=== PATIENT | male | born 1945 | race Caucasian/White ===

== ENCOUNTER → 2020-01-15 13:14 | Outpatient (BNVA) | payer MEDICARE, SELFPAY | PROVIDERS: PCP Internal Medicine; Referring Provider Internal Medicine; Visit Provider Nurse Practitioner Family | DX: Z45.018 Encounter for adjustment and management of other part of cardiac pacemaker (principal) | CPT/HCPCS: 99214 ==

== ENCOUNTER → 2020-07-20 13:48 | Outpatient (BNVA) | payer MEDICARE, SELFPAY | PROVIDERS: PCP Internal Medicine; Visit Provider Nurse Practitioner Family | DX: Z45.018 Encounter for adjustment and management of other part of cardiac pacemaker (principal); I44.2 Atrioventricular block, complete; Z79.899 Other long term (current) drug therapy | CPT/HCPCS: 99212 ==

== ENCOUNTER → 2021-01-18 13:18 | Outpatient (BNVA) | payer MEDICARE, SELFPAY | PROVIDERS: PCP Family Medicine; Referring Provider Family Medicine; Visit Provider Internal Medicine Cardiovascular Disease | DX: Z45.018 Encounter for adjustment and management of other part of cardiac pacemaker (principal); I44.2 Atrioventricular block, complete | CPT/HCPCS: 99212 ==

== ENCOUNTER → 2021-03-14 08:13 | Outpatient (REF) | payer MEDICARE, SELFPAY ==
--- NOTE | 2021-03-14 08:16 | CA_ITS ---
Transthoracic Echocardiogram Amended Patient (Last, First, Middle): Campbell Luna E Gender: Male Date of : 1945 Age: 75 Procedure Date: 03/14/2021 Procedure Type: Transthoracic Echocardiogram Location: OP Height: 167.64 cm Weight: 73.03 kg BSA: 1.82 m2 Heart Rate: bpm BP: 124 / 68 mmHg Phosphorus Processing Supervisor: RICHARD Referring MD: Red Barron MD Symptoms: I44.2 - Atrioventricular block, complete Study Quality: Good ECG Rhythm: Sinus Conclusions: - The left ventricular systolic function is low normal. The visually estimated ejection fraction is between 50-55%. - There is mild tricuspid valve regurgitation. Findings Left Ventricle Normal left ventricular cavity size. There is normal left ventricular wall thickness. The left ventricular systolic function is low normal. The visually estimated ejection fraction is between 50-55%. There is no evidence of regional wall motion abnormalities. E/E prime ratio is between 8 and 15 consistent with indeterminate filling pressures. Evidence suggests grade I (mild) diastolic dysfunction. Right Ventricle Normal right ventricular cavity size and systolic function. Atria Both atria are normal in size. Aortic Valve There is a normal trileaflet aortic valve. There is no aortic valve stenosis. There is no aortic valve regurgitation. Mitral Valve There is mild mitral annular calcification. There is no mitral valve stenosis. Trace to mild mitral regurgitation. Pulmonic Valve The pulmonic valve was not well visualized. Tricuspid Valve There is mild tricuspid valve regurgitation. The pulmonary artery systolic pressure is normal. Great Vessels The aortic annulus and sinuses of valsalva are normal in size. Venous The inferior vena cava is normal in size and collapses greater than 50% with inspiration. Pericardium/Pleural There is no evidence of pericardial effusion. Prior Study Comparison Changes noted compared to prior study dated: 11/27/2019. Slight decrease in LVEF. Measurements M-Mode Liner Measurements Normals - Women/Men LVIDd: 4.69 3.9-5.3/4.2-5.9 cm LVIDd Index: 2.58 1.9-3.2 cm/m2 LVIDs: 3.04 2.0-3.8 cm M-Mode Volumes LV EDV: 102.00 LV ESV: 36.20 2D Linear Measurements IVSd: 0.67 0.6-0.9/0.6-1.0 cm LVIDd: 5.11 3.9-5.3/4.2-5.9 cm LVIDd Index: 2.81 2.4-3.2/2.2-3.1 cm/m2 LVIDs: 3.65 2.0-3.6 cm LVPWd: 1.00 0.7-1.1 cm Ao Root: 3.10 2.1-3.5 cm LA Diam: 3.40 2.7-3.8/3.0-4.0 cm LAIDs Index: 1.87 1.5-2.3 cm/m2 LV Mass: 184.65 67-162/88-224 g LV Mass Index: 101.45 43-95/49-115 g/m2 LVOT Diam: 2.00 3.0+(-)1.3 cm 2D Volumes LA Vol: 16.60 2D Systolic Function EF 4C: 62.60 >55% EF 2C: 54.20 >55% EF BiP: 58.90 >55% M-Mode Systolic Function FS: 35.20 27-47/25-43% Mitral Valve MV Pk E: 0.87 MV PK A: 0.95 MV Decel Time: 284.00 E/A: 0.90 E'Lateral: 7.51 E'Medial: 6.09 E/E' Med: 14.20 E/E' Lat: 11.50 PHT: 83.00 MVA PHT: 2.65 Decel [place]: 3.05 Aortic Valve AoV Pk Regino: 1.15 AoV Pk Grad: 5.00 LVOT LVOT Pk Regino: 0.90 LVOT Mn Regino: 0.55 LVOT VTI: 0.20 LVOT Pk Grad: 3.00 LVOT Mn Grad: 1.00 LVOT Diam: 2.00 LVOT Area: 3.14 Diastolic Function MV Pk E: 0.87 MV Pk A: 0.95 E/A: 0.90 E'Medial: 6.09 E/E' Med: 14.20 E' Laterial: 7.51 E/E' Lat: 11.50 Right Ventricle TAPSE (mm): 2.30 Tricuspid Valve TR Pk Regino: 2.67 TR Pk Grad: 29.00 RA Press: 3.00 RVSP: 32.00 Great Vessels Aorta Ao Root-2D: 3.10 2.0-3.7 cm Updated in Other Vendor System with Status of Final Vince Martinez MD electronically signed on 03/14/2021 12:06:14 PM with status of Final
== END ==
LOC: HO.CARD 08:13
PROVIDERS: PCP Family Medicine; Visit Provider Internal Medicine Cardiovascular Disease
DX: I44.2 Atrioventricular block, complete (principal)
CPT/HCPCS: 93306

== ENCOUNTER → 2021-05-03 13:39 | Outpatient (BNVA) | payer MEDICARE, SELFPAY | PROVIDERS: PCP Family Medicine; Referring Provider Family Medicine; Visit Provider Internal Medicine Cardiovascular Disease | DX: Z45.018 Encounter for adjustment and management of other part of cardiac pacemaker (principal); R42 Dizziness and giddiness | CPT/HCPCS: 99212 ==

== ENCOUNTER → 2021-11-25 09:11 | Outpatient (REF) | payer MEDICARE, SELFPAY ==
--- NOTE | 2021-11-25 09:16 | CA_ITS ---
Transthoracic Echocardiogram Patient (Last, First, Middle): Campbell Luna E Gender: Male Date of : 1945 Age: 76 Procedure Date: 11/25/2021 Procedure Type: Transthoracic Echocardiogram Location: OP Height: 165.1 cm Weight: 72.58 kg BSA: 1.80 m2 Heart Rate: 69 bpm BP: 124 / 60 mmHg Emergency Response Officer: SB Referring MD: Red Barron MD Symptoms: I51.9 - Heart disease, unspecified Study Quality: Adequate ECG Rhythm: Paced Conclusions: - The left ventricular systolic function is low normal. The visually estimated ejection fraction is between 50-55%. Findings Left Ventricle Normal left ventricular cavity size. There is mildly increased left ventricular wall thickness. The left ventricular systolic function is low normal. The visually estimated ejection fraction is between 50-55%. There is no evidence of regional wall motion abnormalities. Diastolic function is normal for age. Reduced peak GLS at -12.8%. Right Ventricle Mildly increased right ventricular cavity size. There is mildly decreased right ventricular systolic function. Aortic Valve There is a normal trileaflet aortic valve. There is no aortic valve stenosis. There is no aortic valve regurgitation. Mitral Valve There is mild mitral annular calcification. There is trace mitral valve regurgitation. There is no mitral valve stenosis. Tricuspid Valve There is mild tricuspid valve regurgitation. Venous The inferior vena cava is normal in size and collapses less than 50% with inspiration. Prior Study Comparison No significant change compared to prior study dated: 03/14/2021. Measurements 2D Linear Measurements IVSd: 1.07 0.6-0.9/0.6-1.0 cm LVIDd: 4.51 3.9-5.3/4.2-5.9 cm LVIDd Index: 2.51 2.4-3.2/2.2-3.1 cm/m2 LVIDs: 2.97 2.0-3.6 cm LVPWd: 1.02 0.7-1.1 cm LV Mass: 203.59 67-162/88-224 g LV Mass Index: 113.11 43-95/49-115 g/m2 LVOT Diam: 2.00 3.0+(-)1.3 cm 2D Systolic Function EF 4C: 55.10 >55% EF 2C: 56.90 >55% EF BiP: 56.40 >55% Mitral Valve MV Pk E: 0.83 MV PK A: 1.03 MV Decel Time: 200.00 E/A: 0.80 E'Lateral: 7.72 E'Medial: 6.74 E/E' Med: 12.30 E/E' Lat: 10.80 PHT: 59.00 MVA PHT: 3.73 Decel [place]: 4.15 LVOT LVOT Pk Regino: 0.99 LVOT Mn Regino: 0.68 LVOT VTI: 0.20 LVOT Pk Grad: 4.00 LVOT Mn Grad: 2.00 LVOT Diam: 2.00 LVOT Area: 3.14 Diastolic Function MV Pk E: 0.83 MV Pk A: 1.03 E/A: 0.80 E'Medial: 6.74 E/E' Med: 12.30 E' Laterial: 7.72 E/E' Lat: 10.80 Right Ventricle TAPSE (mm): 13.90 TVS' Regino: 9.70 Tricuspid Valve TR Pk Regino: 2.54 TR Pk Grad: 26.00 RA Press: 8.00 RVSP: 34.00 Updated in Other Vendor System with Status of Final Vince Martinez MD electronically signed on 11/29/2021 4:43:55 PM with status of Final
== END ==
LOC: HO.CARD 09:11
PROVIDERS: PCP Family Medicine; Visit Provider Internal Medicine Cardiovascular Disease
DX: I51.9 Heart disease, unspecified (principal)
CPT/HCPCS: 93308; 93356

== ENCOUNTER → 2021-12-13 14:05 | Outpatient (BNVA) | payer MEDICARE, SELFPAY | PROVIDERS: PCP Family Medicine; Referring Provider Family Medicine; Visit Provider Internal Medicine Cardiovascular Disease | DX: I47.2 Ventricular tachycardia (principal); Z45.018 Encounter for adjustment and management of other part of cardiac pacemaker | CPT/HCPCS: 93280; 99212 ==

== ENCOUNTER 2021-12-26 08:06 | Outpatient (REF) | payer MEDICARE, SELFPAY ==
--- NOTE | ~2021-12-26 | XR_ITS ---
EXAMINATION: XR RIGHT HIP XR PELVIS CLINICAL INFORMATION: M25.559 - Pain in unspecified hip. COMPARISON: None. TECHNIQUE: AP and frog-leg lateral views of the right hip and an AP view of the pelvis. FINDINGS: Mild osteoarthritis in the right hip is characterized by small marginal osteophytes and mild nonuniform joint space narrowing. Left hip is relatively well-preserved by comparison. SI joints and pubic symphysis also appear well preserved. There is transitional anatomy at the lumbosacral junction. Degenerative spondylosis is evident in the lower lumbar spine. No fractures. Bone mineralization appears normal. No aggressive osseous lesions are identified. Soft tissues are unremarkable. XR/XR hip RT w PEL1V IMPRESSION: Mild osteophyte is in the right hip. Degenerative spondylosis in the lower lumbar spine with transitional anatomy at L5-S1.
== END 2021-12-26 08:07 | disposition home or self-care (01) ==
LOC: HO.HOSX 08:06
PROVIDERS: Visit Provider Physician Assistant
DX: M16.11 Unilateral primary osteoarthritis, right hip (principal)
CPT/HCPCS: 73502; 99202

== ENCOUNTER 2022-01-04 10:48 | Outpatient (REF) | payer MEDICARE, SELFPAY ==
--- NOTE | ~2022-01-04 | FL_ITS ---
EXAMINATION: XR ARTHROGRAM HIP, RIGHT CLINICAL INFORMATION: Right hip pain. Osteoarthritis. COMPARISON: Previous x-ray 12/26/2021. TECHNIQUE?FINDINGS: Procedure and risks and benefits including bleeding and infection were discussed with the patient and informed consent was obtained. The right hip was prepped and draped in the usual sterile fashion. The skin and soft tissues were anesthetized with 1% lidocaine plain. Using fluoroscopic guidance and a 22-gauge needle, access to the right hip joint was obtained. 1-2 mL of Omnipaque 300 contrast was injected fluoroscopically into the joint space confirming adequate placement. Subsequently, a mixture of 8 mL of 1% lidocaine plain and 1 mL 80 mg Depo-Medrol solution was injected into the right hip joint FLUOROSCOPY TIME: 1.2 minutes. DOSE AREA PRODUCT: 6.4 Gy-cm2. IMAGES: 1 saved fluoroscopic image. FL/FL arthrogram hip RT IMPRESSION: Therapeutic right hip joint injection.
== END 2022-01-04 10:49 | disposition home or self-care (01) ==
LOC: HO.XRAY 10:48
PROVIDERS: PCP Family Medicine; Visit Provider Physician Assistant
DX: M16.11 Unilateral primary osteoarthritis, right hip (principal)
CPT/HCPCS: 27093; 73525

== ENCOUNTER → 2022-02-20 13:36 | Outpatient (BNVA) | payer MEDICARE, SELFPAY | PROVIDERS: PCP Family Medicine; Visit Provider Physician Assistant | DX: M16.11 Unilateral primary osteoarthritis, right hip (principal) | CPT/HCPCS: 99212 ==

== ENCOUNTER 2022-03-23 10:00 | Outpatient (RCR) | payer MEDICARE, SELFPAY ==
--- NOTE | 2022-03-01 11:37 | MHC.PT.EP ---
[facility] [place] Office [place] Office [place] Office [address] Sin Castro [address] [phone] F: [phone] F: [phone] F: [phone] F: [phone] Physical Therapy Plan of Care Date of Evaluation: Date of Surgery: n/a Diagnosis: OA of R hip Assessment: Patient is a 76 year old male presenting to PT with complaints of pain in his R hip. Pt reports onset of pain began about 1 year ago due to insidious onset but notes he does have arthritis. He presents today with impairments in pain, ROM, hip strength, knee strength. 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 Pt expresses watermelon inspector goal of prolonging hip replacement until after trip in May, and is motivated to work towards this in PT. Clinical presentation today is most consistent with signs and sx associated with R hip OA per xray and pt will benefit from skilled PT to address the following problems and impairments noted upon evaluation: pain, ROM, hip strength, knee strength.. These problems limit the patient with the following functional activities: ADLs, housework, bending, ambulating, stair negotiation. The prescribed treatment plan of care is medically necessary. Co-morbidities of pacemaker were identified and taken into considerations of plan of care. Pt was educated on HEP, role of PT, prognosis, POC. Frequency and Duration: The patient will be seen 2 x week x 4 weeks Short Term Goals: Pt will demonstrate improved hip MMT by 1/3 grade in 2 weeks for improved lumbopelvic stability. Pt will demonstrate improved knee MMT strength by 1/3 grade in 2 weeks for improved ability to transfer. Long-Term Goals: Pt will demonstrate improved LEFI score by 9 points in 4 weeks for improved functional mobility. Pt will demonstrate improved ability to negotiate stairs without relying on banister to pull himself in 4 weeks for improved access to his home. Pt will demonstrate improved compliance with taking breaks from prolonged sitting to avoid onset of too much pain in 4 weeks. Treatment Plan: Modalities to reduce pain, spasms and effusion. Manual therapy to restore motion and function. Therapeutic exercise to improve strength and flexibility. Neuromuscular re-education for posture and balance. Therapeutic activities to return to functional activities of daily living. Electronically signed by: Petty Verduzco, PT, DPT, ATC Please sign and return to therapist. Thank you for your referral.
--- NOTE | 2022-04-04 13:45 | MHC.PT.DC ---
[facility] [place] Office [place] Office [place] Office [address] Sin Castro [address] [phone] F: [phone] F: [phone] F: [phone] F: [phone] Physical Therapy Discharge Report Diagnosis: OA of R hip Date of Surgery: n/a Date of Evaluation: 03/01/22 Date of Discharge: 04/04/22 Treatments to Date: 7 Cancellations to Date: 2 No Shows to Date: 0 Discharge Status: Patient Elected to Stop Discharge Summary: Pt called stating he would like to be d/c from skilled PT and continue with HEP at home. Electronically signed by: Petty Verduzco, PT, DPT, ATC Please sign and return to therapist. Thank you for your referral.
== END 2022-04-04 13:45 | disposition home or self-care (01) ==
LOC: HO.PTCHIC 10:00
PROVIDERS: PCP Family Medicine; Visit Provider Physician Assistant
DX: M16.11 Unilateral primary osteoarthritis, right hip (principal)
CPT/HCPCS: 97110; 97162

== ENCOUNTER 2022-04-05 13:06 | Outpatient (REF) | payer MEDICARE, SELFPAY ==
--- NOTE | ~2022-04-05 | FL_ITS ---
EXAMINATION: XR ARTHROGRAM HIP, RIGHT CLINICAL INFORMATION: Right hip osteoarthritis. Pain. COMPARISON: None. TECHNIQUE: Following explaining fluoroscopy-guided right hip steroid injection procedure, benefits and risks, a written consent was obtained. Patient was placed supine on fluoroscopy table and optimal site was selected on the skin and marked. The marked site was cleaned and draped in the usual sterile manner. 1% lidocaine was injected at the puncture site. A 20-gauge spinal needle was then inserted under fluoroscopy to the junction of right femoral neck and head. 2 mL of nonionic contrast was injected and single image obtained. After confirmation of contrast in the joint space a combination of 80 mg of Depo-Medrol, 4 mL of 1% lidocaine and 4 mL of 0.25% Marcaine was injected as a 9 mL volume and needle withdrawn. Complete hemostasis achieved at the puncture site. Patient tolerated procedure extremely well. FINDINGS: On fluoroscopy images obtained there is contrast opacifying the right hip joint. The right hip joint spaces are decreased with mild periarticular spurring. No bony erosive changes or loose body seen. Fluoroscopy-guided right hip steroid injection was performed without immediate complications. FLUOROSCOPY TIME: 0.4 minutes. DOSE AREA PRODUCT: 5.880 Gy-m2 (microgray-meter squared). IMAGES: 2. FL/FL arthrogram hip RT IMPRESSION: Successful fluoroscopy-guided right hip steroid injection performed without immediate complications.
== END 2022-04-05 13:07 | disposition home or self-care (01) ==
LOC: HO.XRAY 13:06
PROVIDERS: Visit Provider Physician Assistant
DX: M16.0 Bilateral primary osteoarthritis of hip (principal)
CPT/HCPCS: 27093; 73525

== ENCOUNTER → 2022-08-03 14:30 | Outpatient (BNVA) | payer MEDICARE, SELFPAY | PROVIDERS: PCP Family Medicine; Visit Provider Orthopaedic Surgery | DX: M16.0 Bilateral primary osteoarthritis of hip (principal); I44.2 Atrioventricular block, complete; Z95.0 Presence of cardiac pacemaker | CPT/HCPCS: 99212 ==

== ENCOUNTER → 2022-09-26 09:40 | Outpatient (BNVA) | payer MEDICARE, SELFPAY | PROVIDERS: PCP Family Medicine; Visit Provider Orthopaedic Surgery ==

== ENCOUNTER → 2022-10-05 09:48 | Outpatient (REF) | payer MEDICARE, SELFPAY ==
--- NOTE | 2022-10-05 09:51 | CA_ITS ---
Acquisition Time: 2022-10-05 09:56:14 Total Exercise Time: 00:02:00 Test Indications: NSVT PREOP Medications: SEE H Protocol: LEXISCAN Max HR: 100 BPM 69% of Pred: 144 BPM Max BP: 134/068 mmHG Max Work Load: 1.0 METS Pharmacological stress test with Lexiscan injection while sitting and not kicking his legs, without anginal symptoms, without arrhythmias, with normotensive response to injection, with non-diagnositic EKGs. Nuclear images pending. Test reviewed with Dr. Murray. Referred By: Red Barron Overread By: KO CARRANZA
== END ==
LOC: HO.CARD 09:48
PROVIDERS: PCP Family Medicine; Visit Provider Internal Medicine Cardiovascular Disease
DX: Z01.810 Encounter for preprocedural cardiovascular examination (principal); I44.2 Atrioventricular block, complete; Z95.0 Presence of cardiac pacemaker
CPT/HCPCS: 78452; 93017; A9500; J0280; J2785

== ENCOUNTER 2022-10-19 13:43 | Outpatient (AMB) | payer MEDICARE, SELFPAY ==
--- NOTE | 2022-10-19 13:44 | A.OFFVIS_ITS ---
Intake Vital Signs 10/19/22 13:47 Height 5 ft 6 in Weight 158 lb BMI 25.5 Intake Visit Reasons: Preop RT NINA 10/24/22 NE Intake Note: Campbell is a 77 year old female who presents today for a preoperative right NINA, 10/24/22 NE. Pain management agreement was reviewed and signed. Allergies turmeric Allergy (Intermediate, Verified 10/19/22 13:52) hives Medication List - Last Reconciled 10/22/22 by Robert Smith PA-C acetaminophen (Tylenol) 650 mg PO QID PRN cetirizine 5 mg PO DAILY PRN cholecalciferol (vitamin D3) 25 mcg PO DAILY coenzyme Q10 (Ultra CoQ10) 75 mg PO DAILY flaxseed oil 1,000 mg PO DAILY fluoxetine 10 mg PO DAILY gabapentin 200 mg PO BID meloxicam 7.5 mg PO DAILY multivitamin 1 tab PO DAILY omega-3 fatty acids 1,000 mg PO DAILY saw palmetto 160 mg PO BID zinc sulfate 50 mg PO Q2D HPI HPI Comments History of Present Illness Details Mr Luna presents to the office today for preop visit. He is scheduled for right total hip arthroplasty with Dr. Sanders. He continues to have ongoing pain and difficulty with ambulation in the right hip, which is affecting his quality of life; therefore, he has elected to move forward with surgery. Most recent appt with NE 08/03/22: Campbell is a 77 y ear old man with r ight hip OA. He h as pain with daily and weight-bearin g activities and f eels limited in hi s lifestyle. He sa ys his pain is kenny margaux in his groi n and prevents him from being as act alicia as he wants to be. He has a Hx of hip injections, with his most rec ent being an Flour oscan guided hip i njection on , with good reli ef. He had a pace maker implanted in 11/2019. ? PFSH Medical History Complete heart block Osteoarthritis Pacemaker Surgical History H/O colonoscopy History of bunionectomy History of permanent cardiac pacemaker placement (~11/2019) Hx of hernia repair Family History Father Emphysema lung Mother No problems noted. 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 Review of Systems Const All systems reviewed & are unremarkable except as noted in HPI and below Physical Exam Vital Signs: BMI result Body Mass Index 25.5 Const General: cooperative and no acute distress Orientation/consciousness: patient oriented x3 HEENT Head: Yes normal to inspection, Yes normocephalic and Yes atraumatic Eyes General: appearance normal, both eyes and all related structures Neck Neck: Yes normal visual inspection and Yes no lymphadenopathy Resp Effort & Inspection: normal respiratory effort and able to speak in complete sentences Cardio Rate: regular rate Peripheral pulses: Peripheral pulses 2+ throughout GI Inspection: Yes normal to inspection Palpation (GI): Soft to palpation Skin General skin exam: no rashes or lesions noted Neuro General: patient oriented x3 Extrem Other: Right Hip: Skin normal to inspection, no open wounds or abraisons. + [place]field + Impingement Psych Appearance: grossly normal Mental Status: mental status grossly normal Affect: normal affect Attitude: cooperative Results Reviewed Results Reviewed: XR right hip/pelvis 12/26/21 Mild osteoarthritis in the right hip is characterized by small marginal osteophytes and mild nonuniform joint space narrowing Stress test performed on 10/06/22 NM vianey perf SPECT rest & str Impression: ? 1.? Myocardial perfusion imaging study shows probably normal myocardial perfusion. No definitive evidence of any ischemia or infarction. 2.? Gated LVEF is 55% during stress and 61% during rest. 3. Transient ischemic dilatation not present. On 10/11/22 @ 10:51 Red Barron Wrote To Brandie Topete Stress test is normal On 10/11/22 @ 13:25 Red Barron Wrote To [place] Crespo Patient optimized for hip surgery with low to intermediate risk Assessment & Plan Assessment & Plan (1) Osteoarthritis of right hip: Code(s): M16.11 - Unilateral primary osteoarthritis, right hip Plan: I discussed in detail the procedure and what to expect pre and post operatively. We discussed the risks, benefits and alternatives to the surgery as well as the rehabilitation course. The risks; which include, but are not limited to infection, bleeding, nerve injury, ongoing pain, swelling, and stiffness, perioperative risk of injury to bones and soft tissues, and blood clots. I?ve answered all questions and with their understanding they have consented to move forward with Right total hip arthroplasty with Dr. Marilyn little- will wait in surgery waiting room Patient Instructions: Scribed for Robert Smith PA-C, by Maksim Means medical billing and coding specialist, on 10/19/2022 at 1:45 PM EST. Roman, Robert Smith PA-C, have personally reviewed and agree with the information entered by the scribe. Coding Level of Care Code Est Pt Level 3 (16709) Diagnoses Osteoarthritis of right hip M16.11
[2022-10-19 13:47] VITALS: BMI 25.5
== END 2022-10-19 14:54 | disposition home or self-care (01) ==
PROVIDERS: Visit Provider Physician Assistant
DX: M16.11 Unilateral primary osteoarthritis, right hip (principal)
CPT/HCPCS: 99024

== ENCOUNTER → 2022-10-19 13:43 | Outpatient (BNVA) | payer MEDICARE, SELFPAY | PROVIDERS: Visit Provider Physician Assistant ==

== ENCOUNTER 2022-10-24 10:00 | Inpatient (IN) | payer MEDICARE, SELFPAY ==
[2022-10-11 12:04] VITALS: BP 123/64; PULSE 74; RESP 20; O2SAT 97; BMI 29.7
--- NOTE | 2022-10-23 09:38 | HO.ANESPROP2 ---
Documented by User: Archana Kelley NP 10/23/22 09:48 HPI - Anesthesia Eval Consult details Narrative: 77yo M for Right Hip Total Replacement PAT eval by Dr Roberts - No EKG needed (stress and echo avail), Pt to have SPINAL anesthesia, Needs pacer interrogated post-op Pacer in situ (CHB, NSVT) Medically optimized Cardiac cleared [facility] Active Problems Active Problems: All Active Problems (Updated 10/11/22 @ 11:58 by Rachael Hall RN) Osteoarthritis of right hip (Acute) Arthritis of left hip (Acute) Pacemaker (Acute) Complete heart block (Acute) Past Medical History Medical History Complete heart block Osteoarthritis Pacemaker Family History Family History Father Emphysema lung Mother No problems noted. Surgical History Surgical History H/O colonoscopy History of bunionectomy History of permanent cardiac pacemaker placement (~11/2019) Hx of hernia repair Social History Social History Are you a primary career based intervention coordinator to a significant other at home: No Do you presently have visiting nurse or other home services: No Patient Tobacco Use Status: Former Tobacco user Quit Date: 1988 Tobacco use type: Cigarette Years Smoked: 19 Use of substances other than those prescribed or required for medical reasons: No Have you been hit, kicked, punched, or otherwise hurt by someone within the past year? 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 Meds Allergies Allergy/AdvReac Type Severity Reaction Status Date / Time turmeric Allergy Intermediate hives Verified 10/19/22 13:52 Home Medications Medication Instructions Recorded Confirmed Last Taken Type coenzyme Q10 75 mg capsule (Ultra 75 mg PO DAILY 01/15/20 10/09/22 Unknown History CoQ10) flaxseed oil 1,000 mg capsule 1,000 mg PO DAILY 01/15/20 10/09/22 Unknown History meloxicam 7.5 mg tablet 7.5 mg PO DAILY 01/15/20 10/09/22 Unknown History multivitamin 1 tab PO DAILY 01/15/20 10/09/22 Unknown History omega-3 fatty acids 1,000 mg 1,000 mg PO DAILY 01/15/20 10/09/22 Unknown History capsule saw palmetto 160 mg capsule 160 mg PO BID 01/15/20 10/09/22 Unknown History cetirizine 5 mg tablet 5 mg PO DAILY PRN Allergy Symptoms 07/20/20 10/09/22 Unknown History cholecalciferol (vitamin D3) 25 25 mcg PO DAILY 01/18/21 10/09/22 Unknown History mcg (1,000 unit) capsule acetaminophen 325 mg capsule 650 mg PO QID PRN Pain 05/03/21 10/22/22 Unknown History (Tylenol) zinc sulfate 50 mg zinc (220 mg) 50 mg PO Q2D 12/13/21 10/09/22 Unknown History tablet gabapentin 100 mg capsule 200 mg PO BID 09/26/22 10/22/22 Unknown History fluoxetine 10 mg capsule 10 mg PO DAILY 10/11/22 10/22/22 Unknown History Exam Exam Date and Time: October 23, 2022 0938 Height,Weight and Vital Signs: Height 5 ft 4 in Weight 78.471 kg Last Vital Signs Pulse 74 10/11/22 12:04 Resp 20 10/11/22 12:04 BP 123/64 10/11/22 12:04 Pulse Ox 97 10/11/22 12:04 O2 Del Method Room Air 10/11/22 12:04 Pertinent Lab Results Pertinent Lab Results: Laboratory Tests 10/11/22 10/11/22 12:30 12:56 Nasal Screen MRSA (PCR) NEGATIVE Nasal S. aureus Screen NEGATIVE Nasal MRSA/S.aureus Interp SEE NOTE Blood Type A Positive Antibody Screen NEGATIVE CBC and BMP from outside facility WNL 06/2022 PT/INR from outside facility WNL 09/2022 Narrative Narrative: NM vianey perf SPECT rest & str 09/2022 Impression: ? 1.? Myocardial perfusion imaging study shows probably normal myocardial perfusion. No definitive evidence of any ischemia or infarction. 2.? Gated LVEF is 55% during stress and 61% during rest. 3. Transient ischemic dilatation not present. ? EKG component of the test reported separately. ECHO 2021 Conclusions: - The left ventricular systolic function is low normal.? The ? ? visually estimated ejection fraction is between 50-55%.? Assessment and Plan Assessment Anesthesia Assessment: Chart Reviewed Documented by User: Wilbur Beck MD 10/24/22 13:34 [facility] Past Medical History Medical History Complete heart block Osteoarthritis Pacemaker Family History Family History Father Emphysema lung Mother No problems noted. Family history of problems with anesthesia: No Surgical History Surgical History H/O colonoscopy History of bunionectomy History of permanent cardiac pacemaker placement (~11/2019) Hx of hernia repair History of Problems with Anesthesia: No Social History Social History Are you a primary career based intervention coordinator to a significant other at home: No Do you presently have visiting nurse or other home services: No Patient Tobacco Use Status: Former Tobacco user Quit Date: 1988 Tobacco use type: Cigarette Years Smoked: 19 Use of substances other than those prescribed or required for medical reasons: No Have you been hit, kicked, punched, or otherwise hurt by someone within the past year? 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 Meds Allergies Allergy/AdvReac Type Severity Reaction Status Date / Time turmeric Allergy Intermediate hives Verified 10/19/22 13:52 Home Medications Medication Instructions Recorded Confirmed Last Taken Type coenzyme Q10 75 mg capsule (Ultra 75 mg PO DAILY 01/15/20 10/09/22 Unknown History CoQ10) flaxseed oil 1,000 mg capsule 1,000 mg PO DAILY 01/15/20 10/09/22 Unknown History meloxicam 7.5 mg tablet 7.5 mg PO DAILY 01/15/20 10/09/22 Unknown History multivitamin 1 tab PO DAILY 01/15/20 10/09/22 Unknown History omega-3 fatty acids 1,000 mg 1,000 mg PO DAILY 01/15/20 10/09/22 Unknown History capsule saw palmetto 160 mg capsule 160 mg PO BID 01/15/20 10/09/22 Unknown History cetirizine 5 mg tablet 5 mg PO DAILY PRN Allergy Symptoms 07/20/20 10/09/22 Unknown History cholecalciferol (vitamin D3) 25 25 mcg PO DAILY 01/18/21 10/09/22 Unknown History mcg (1,000 unit) capsule acetaminophen 325 mg capsule 650 mg PO QID PRN Pain 05/03/21 10/22/22 Unknown History (Tylenol) zinc sulfate 50 mg zinc (220 mg) 50 mg PO Q2D 12/13/21 10/09/22 Unknown History tablet gabapentin 100 mg capsule 200 mg PO BID 09/26/22 10/22/22 Unknown History fluoxetine 10 mg capsule 10 mg PO DAILY 10/11/22 10/22/22 Unknown History Exam Airway Mallampati Class: II TM Dist: >3cm Neck ROM: Limited Heart: rrr Lungs: cta Assessment and Plan Assessment Anesthesia Assessment: Anesthesia Plan Discussed Final Anesthetic Review Family History of Problems with Anesthesia: No History of Problems with Anesthesia: No NPO: Yes ASA Class: II Final Preanesthetic Review: No Changes in Pt Med Stat, Meds/Allgs Chart Reviewed, Consent Obtained/Reviewed and Anes Risks/Benef Reviewed Patient Risk: Intermediate Procedure Risk: Intermediate Anesthetic Plan Anesthetic Plan: Spinal and Agree w/ Assess. and Plan Disposition: Standard PACU
[2022-10-24] VITALS (11 sets, daily range): BP systolic 85–145; BP diastolic 40–78; PULSE 69–90; RESP 13–19; TEMP 36.1–36.8; O2SAT 92–100
--- NOTE | ~2022-10-24 | XR_ITS ---
EXAMINATION: XR PELVIS CLINICAL INFORMATION: Right total hip arthroplasty. COMPARISON: 04/27/2021 TECHNIQUE: AP portable low set view of the pelvis. FINDINGS: There is a total right hip arthroplasty. The femoral head component articulates appropriately with the acetabular component. No periprosthetic lucency or fracture. Postoperative soft tissue gas. Overlying skin sherri. Mild degenerative changes at the left hip. XR/XR pelvis 1-2V IMPRESSION: Total right hip arthroplasty in typical positioning and alignment.
--- OUTSIDE RECORDS SUMMARY | 2022-10-24 10:12 | XMS_ITS | Continuity of Care Document ---
Author Name Unknown Organization [facility] Ric Nabeel lt Address [address] [place] [address]- Care Team Providers Care Marine Operations Coordinator Name Role Phone Not on Staff, PCP Primary Care Physician Unavail able [place] [facility] [place] 03/[place]/20 [facility] Adult [address] [place] [address]- Allergies, Adverse Reactions, Alerts Substance Reaction Severity Status NKA Active Medications Fish Oil 1000 mg oral capsule 1 capsule = 1,000 mg, By Mouth, Daily, 0 Refills, Maintenance, 03/18/20 7:03:00 EST, Partial fill upon patient request if the prescription is for a schedule II opioid drug. Start Date: 03/18/20 Status: Ordered Flax Seed Oil 0 Refills, Maintenance, 03/18/20 7:04:00 EST, Partial fill upon patient request if the prescriptionis for a schedule II opioid drug. Start Date: 03/18/20 Status: Ordered meloxicam 15 mg oral tablet 1 tablet = 15 mg, By Mouth, Daily, # 30 tablet, 0 Refills, Maintenance, 03/18/20 7:02:00 EST, Tablet, Partial fill upon patient request if the prescription is for a schedule II opioid drug. Start Date: 03/18/20 Status: Ordered Multivitamin Daily, 0 Refills, Maintenance, 03/18/20 7:03:00 EST, Partial fill upon patient request if the prescription is for a schedule II opioid drug. Start Date: 03/18/20 Status: Ordered ProAir HFA 90 mcg/inh inhalation aerosol 1 puffs, Inhalation, 4 times a day, PRN as needed for wheezing, # 6.7 Gm, 0 Refills, Maintenance, 03/18/20 7:02:00 EST, Aerosol, Partial fill upon patient request if the prescription is for a schedule II opioid drug. Start Date: 03/18/20 Status: Ordered Saw [place] 0 Refills, Maintenance, 03/18/20 7:04:00 EST, Partial fill upon patient request if the prescriptionis for a schedule II opioid drug. Start Date: 03/18/20 Status: Ordered TheraTears Eyes, Both, 4 times a day, 0 Refills, Maintenance, 03/18/20 7:09:00 EST, Partial fill upon patient request if the prescription is for a schedule II opioid drug. Start Date: 03/18/20 Status: Ordered Tylenol Arthritis Caplet = 1,300 mg, By Mouth, Every 8 hours, 0 Refills, Maintenance, 03/18/20 7:15:00 EST, Partial fill upon patient request if the prescription is for a schedule II opioid drug. Start Date: 03/18/20 Status: Ordered Vitamin D3 By Mouth, Daily, 0 Refills, Maintenance, 03/18/20 7:14:00 EST, Partial fill upon patient request ifthe prescription is for a schedule II opioid drug. Start Date: 03/18/20 Status: Ordered Zinc = 140 mg, By Mouth, Daily, 0 Refills, Maintenance, 03/18/20 7:14:00 EST, Partial fill upon patient request if the prescription is for a schedule II opioid drug. Start Date: 03/18/20 Status: Ordered Problem List Condition Effective Dates Status Health Status Inform ant Complete heart block(Confirmed) Active OA (osteoarthritis)(Confirmed) Active Social History Social History Type Response Smoking Status Former smoker, quit more than 30 days ago; Other: quit in 1988; entered on: 03/18/20 Sex
--- OUTSIDE RECORDS SUMMARY | 2022-10-24 10:13 | XMS_ITS | Continuity of Care Document ---
Author Name Unknown Organization [facility] [place] Nabeel lt Address [address] [place] [address]- Care Team Providers Care Manager Forms Name Role Phone Aditya Cruz MD Primary Care Physician Encounter [facility] [place] Date(s): 08/11/21 - 08/18/21 [facility] [place] Adult [address] [place] [address]- Attending Physician: Aditya Cruz MD Allergies, Adverse Reactions, Alerts No Known Allergies Immunizations Given and Recorded Vaccine Date Status Refusal Reason SARS-CoV-2 mRNA ([id number]) vax 08/11/21 Given SARS-CoV-2 (COVID-19) mRNA BNT-162b2 vac 01/18/21 Recorded SARS-CoV-2 (COVID-19) mRNA BNT-162b2 vac 07/10/20 Recorded SARS-CoV-2 (COVID-19) mRNA BNT-162b2 vac 06/19/20 Recorded influenza virus vaccine, inactivated 01/13/21 Jarvis rded influenza virus vaccine, inactivated 12/14/20 Jarvis rded influenza virus vaccine, inactivated 01/01/20 Jarvis rded influenza virus vaccine, inactivated 01/29/19 Jarvis rded influenza virus vaccine, inactivated 12/21/17 Jarvis rded influenza virus vaccine, inactivated 01/10/17 Jarvis rded influenza virus vaccine, inactivated 01/14/16 Jarvis rded influenza virus vaccine, inactivated 01/07/11 Jarvis rded influenza virus vaccine, inactivated 12/13/09 Jarvis rded Medications Charcoal Capsule 0 Refills, Maintenance, 08/09/20 13:30:00 EDT, Partial fill upon patient request if the prescription is for a schedule II opioid drug. Start Date: 08/09/20 Status: [facility] [employer] [facility] oral capsule By Mouth, Daily, 0 Refills, Maintenance, 08/09/20 13:30:00 EDT, Partial fill upon patient request if the prescription is for a schedule II opioid drug. Start Date: 08/09/20 Status: Ordered cyclobenzaprine 10 mg oral tablet 10 mg, 1, tablet, By Mouth, 3 times a day, PRN, # 30 tablet, Refills 0, Tot. Refills 0, Acute 08/22/21 11:50:00 EDT, for spasm, 08/11/21 11:48:00 EDT, Route to Pharmacy Electronically, [facility]/pharmacy #[id number], Partial fill upon patient request if the presc... Start Date: 08/11/21 Stop Date: 08/22/21 Status: Ordered Fish Oil 1000 mg oral capsule 1 [...] opioid drug. Start Date: 03/18/20 Status: Ordered FLUoxetine 10 mg oral capsule 10 mg, 1, capsule, By Mouth, Daily, # 90 capsule, Refills 3, Tot. Refills 3, Maintenance, 08/11/21 11:44:00 EDT, Route to Pharmacy Electronically, [facility]/pharmacy #[id number], Partial fill upon patient request if the prescription is for a schedule II opioid dr... Start Date: 08/11/21 Status: Ordered gabapentin 300 mg oral capsule See Instructions, 1 capsule in the am and 1 capsule in pm, Refills 0, Maintenance, 08/11/21 11:04:00 EDT, Instructions Replace Required Details, Partial fill upon patient request if the prescription is for a schedule II opioid drug. Start Date: 08/11/21 Status: Ordered meloxicam 15 mg oral tablet [...] drug. Start Date: 03/18/20 Status: Ordered Saw [place] 0 Refills, Maintenance, 03/18/20 7:04:00 EST, Partial fill upon patient request if the prescriptionis for a schedule II opioid drug. Start Date: 03/18/20 Status: Ordered TheraTears Eyes, Both, 4 times a day, 0 Refills, Maintenance, 03/18/20 7:09:00 EST, Partial fill upon patient request if the prescription is for a schedule II opioid drug. Start Date: 03/18/20 Status: Ordered Transderm-Scop 1 mg/72 hr transdermal film, extended release 1 film, Topically, Every 72 hours, # 10 each, 0 Refills, Acute 08/25/21 12:45:00 EDT, 08/11/21 12:38:00 EDT, [facility]/pharmacy #[id number], Partial fill upon patient request if the prescription is for a schedule II opioid drug., 1 film Topically Every 72 hours,... Start Date: 08/11/21 Stop Date: 08/25/21 Status: Ordered Tylenol Arthritis Caplet = 1,300 [...] Complete heart block(Confirmed) Active OA (osteoarthritis)(Confirmed) Active Vital Signs Most recent to oldest [Reference Range]: 1 2 Height 163.0 cm (08/11/21 11:08 AM) 163.0 cm (08/11/21 10:57 AM) Weight 73.9 kg (08/11/21 10:57 AM) Oxygen Saturation [94-100 %] 99 % (08/11/21 10:57 AM) Pulse Rate [55-90 bpm] 78 bpm (08/11/21 10:57 AM) Body Mass Index [18.5-24.99] 27.81 *H* (08/11/21 10:57 AM) Blood Pressure [90-138/55-84 mm Hg] 126/ 69mm Hg (08/11/21 11:08 AM) 137/75mm Hg (08/11/21 10:57 AM) Temperature [96.8-100.4 DegF] 98.4 DegF (08/11/21 10:57 AM) Mode of Delivery (Oxygen) Room air (08/11/21 10:57 AM) Blood pressure sites Arm, left (08/11/21 11:08 AM) Arm, left (08/11/21 10:57 AM) Temperature Route Oral (08/11/21 10:57 AM) Weight Obtained Via Standing scale (08/11/21 10:57 AM) Social History Social History Type Response Smoking Status Former smoker, quit more than 30 days ago; Other: quit in 1988; entered on: 03/18/20 Sex
--- OUTSIDE RECORDS SUMMARY | 2022-10-24 10:13 | XMS_ITS | Continuity of Care Document ---
Author Name Unknown Organization [facility] Address [address] [place] [address]- Care Team Providers Care Parts Representative Name Role Phone Aditya Cruz MD Primary Care Physician [phone] [place] [facility] [place] - 09/06/[address] [id number] Discharge Disposition: A-D/C Home Attending Physician: Aditya Cruz MD Admitting Physician: Aditya Cruz MD Referring Physician: Sachin AYERS, Libzet Cunningham Allergies, Adverse Reactions, Alerts No Known Allergies Immunizations Given and Recorded Vaccine Date Status Refusal Reason SARS-CoV-2 mRNA ([id number]) vax 08/11/21 Given SARS-CoV-2 (COVID-19) mRNA BNT-162b2 [...] opioid drug. Start Date: 08/09/20 Status: Ordered [employer] oral capsule By Mouth, Daily, 0 Refills, Maintenance, 08/09/20 13:30:00 EDT, Partial fill upon patient request if the prescription is for a schedule II opioid drug. Start Date: 08/09/20 Status: Ordered Fish Oil 1000 mg oral [...] 08/11/21 11:44:00 EDT, Route to Pharmacy Electronically, [facility]/pharmacy #[id number], Partial fill upon patient request if the prescription is for a schedule II opioid drYoshi. Start Date: 08/11/21 Status: Ordered gabapentin 300 [...] drug. Start Date: 03/18/20 Status: Ordered Saw [place] 0 Refills, Maintenance, 03/18/20 7:04:00 EST, Partial [...]
--- OUTSIDE RECORDS SUMMARY | 2022-10-24 10:13 | XMS_ITS | Continuity of Care Document ---
Author Name Unknown Organization [facility] Nabeel lt Address [address] [place] [address]- Care Team Providers Care Paint Roller Winder Name Role Phone Nancy KING, Aditya Tristna Primary Care Physician En[place] [facility] [place] Date(s): 08/18/22 - 08/25/22 [facility] Adult [address] [place] [address]- Attending Physician: Aditya Cruz MD Allergies, Adverse Reactions, Alerts Substance Reaction Severity Status Thimerosal Allergy 1 Active 1conjunctivitis on both eyes Immunizations Given and Recorded Vaccine Date Status Refusal Reason [id number] 12y+ bivalent booster vax 08/15/22 Recorded [id number] 12y+ bivalent booster vax 01/23/22 Recorded influenza virus vaccine, inactivated 01/09/22 Jarvis rded influenza virus vaccine, inactivated 01/13/21 Jarvis rded influenza virus vaccine, inactivated 12/14/20 Jarvis rded influenza virus vaccine, inactivated 01/01/20 Jarvis rded influenza virus vaccine, inactivated 01/29/19 Jarvis rded influenza virus vaccine, inactivated 12/21/17 Jarvis rded influenza virus vaccine, inactivated 01/10/17 Jarvis rded influenza virus vaccine, inactivated 01/14/16 Jarvis rded influenza virus vaccine, inactivated 01/07/11 Jarvis rded influenza virus vaccine, inactivated 12/13/09 Jarvis rded SARS-CoV-2 mRNA ([id number]) vax 08/11/21 Given SARS-CoV-2 (COVID-19) mRNA BNT-162b2 vac 01/18/21 Recorded SARS-CoV-2 (COVID-19) mRNA BNT-162b2 vac 07/10/20 Recorded SARS-CoV-2 (COVID-19) mRNA BNT-162b2 vac 06/19/20 Recorded Medications atorvastatin 10 mg oral tablet 1 tablet = 10 mg, By Mouth, Daily at bedtime, # 90 tablet, 3 Refills, Maintenance, 08/18/22 9:44:00EDT, [facility]/pharmacy #[id number], Partial fill upon patient request if the prescription is for a schedule IIopioid drug., 162.6, cm, 08/18/22 9:06:00 EDT, Height Start Date: 08/18/22 Status: Ordered Charcoal Capsule 0 Refills, Maintenance, 08/09/20 13:30:00 [...] opioid drug. Start Date: 03/18/20 Status: Ordered gabapentin 300 mg oral capsule [...] drug. Start Date: 03/18/20 Status: Ordered Saw [place] 0 Refills, Maintenance, 03/18/20 7:04:00 EST, Partial [...] Date: 03/18/20 Status: Ordered Problem List Condition Confirmation Course Effective Dates Status Health St atus Informant Complete heart block Confirmed Active OA (osteoarthritis) Confirmed Active Vital Signs Most recent to oldest [Reference Range]: 1 Height 162.6 cm (08/18/22 9:06 AM) Weight 77.9 kg (08/18/22 9:06 AM) Oxygen Saturation [94-100 %] 98 % (08/18/22 9:06 AM) Pulse Rate [55-90 bpm] 70 bpm (08/18/22 9:06 AM) Body Mass Index [18.5-24.99 kg/m2] 29.46 kg/m2 *H* (08/18/22 9:06 AM) Blood Pressure [90-138/55-84 mm Hg] 117/ 67mm Hg (08/18/22 9:06 AM) Mode of Delivery (Oxygen) Room air (08/18/22 9:06 AM) Blood pressure sites Arm, right (08/18/22 9:06 AM) Weight Obtained Via Standing scale (08/18/22 9:06 AM) Social History Social History Type Response Smoking Status Former smoker, quit more than 30 days ago; Other: quit in 1988; entered on: 03/18/20 Sex Patient Care team information Care Team Personnel Name: Nancy KING, Aditya Tristan Position: [facility] Primary Care Physician Member Role: PCP Address: Address: [address] [place] [id number]- Care Team Related Persons Name: TRINI CASTRO Address: home [address] [place] [address] [place] [address]
--- OUTSIDE RECORDS SUMMARY | 2022-10-24 10:13 | XMS_ITS | Continuity of Care Document ---
Author Name Unknown Organization [facility] Nabeel lt Address [address] [place] [address]- Care Team Providers Care Branch Office Administrator Name Role Phone Aditya Cruz MD Primary Care Physician [phone] [place] [facility] [facility] [place] 10[place]19/21 [facility] Adult [address] [place] [address]- Attending Physician: Aditya Cruz MD Allergies, Adverse Reactions, Alerts No Known Allergies Immunizations Given and Recorded Vaccine Date Status Refusal Reason SARS-CoV-2 mRNA ([id number]) vax 08/11/21 Given SARS-CoV-2 (COVID-19) mRNA BNT-162b2 [...] opioid drug. Start Date: 08/09/20 Status: Ordered [facility] oral capsule By Mouth, Daily, [...] 08/11/21 11:44:00 EDT, Route to Pharmacy Electronically, [facility]/pharmacy #[id number], Partial fill upon patient request if the [...] drug. Start Date: 03/18/20 Status: Ordered Saw [place] 0 Refills, Maintenance, 03/18/20 7:04:00 EST, Partial [...]
--- OUTSIDE RECORDS SUMMARY | 2022-10-24 10:13 | XMS_ITS | Continuity of Care Document ---
Author Name Unknown Organization [facility] Nabeel lt Address [address] [place] [address]- Care Team Providers Care Health Center Assistant Name Role Phone Nancy KING, Aditya Tristan Primary Care Physician [phone] Encounter [facility] Date(s): 07/19/21 - 08/18/21 [facility] Adult [address] [place] [address]- Allergies, Adverse Reactions, Alerts No Known Allergies Immunizations Given and Recorded Vaccine Date Status Refusal Reason SARS-CoV-2 mRNA ([id number]) vax 08/11/21 Given SARS-CoV-2 (COVID-19) mRNA BNT-162b2 [...] opioid drug. Start Date: 08/09/20 Status: [facility] oral capsule By Mouth, Daily, [...] 08/11/21 11:48:00 EDT, Route to Pharmacy Electronically, [facility]/pharmacy #[id number], Partial fill upon patient [...] 08/11/21 11:44:00 EDT, Route to Pharmacy Electronically, [facility]/pharmacy #[id number], Partial fill upon patient [...] drug. Start Date: 03/18/20 Status: Ordered Saw [place] 0 Refills, Maintenance, 03/18/20 7:04:00 EST, Partial [...] Acute 08/25/21 12:45:00 EDT, 08/11/21 12:38:00 EDT, [facility]/pharmacy #[id number], Partial fill upon patient [...]
--- OUTSIDE RECORDS SUMMARY | 2022-10-24 10:13 | XMS_ITS | Continuity of Care Document ---
Author Name Unknown Organization [facility] Address [address] [place] [address]- Care Team Providers Care Esthetician Permanent Makeup Artist Name Role Phone Nancy KING, Aditya Tristan Primary Care Physician Encounter [facility] [place] Date(s): 09/06/21 - 10/06/[address] [id number] Attending Physician: Admtr, Ar8 Admitting Physician: Admtr, Ar8 Referring Physician: Admtr, Ar8 Allergies, Adverse Reactions, Alerts No Known Allergies Immunizations Given and Recorded Vaccine Date Status Refusal Reason SARS-CoV-2 mRNA ([id number]) vax 08/11/21 Given SARS-CoV-2 (COVID-19) mRNA BNT-162b2 [...] Date: 08/09/20 Status: Ordered [facility] oral capsule By Mouth, Daily, 0 Refills, [...] 08/11/21 11:44:00 EDT, Route to Pharmacy Electronically, [facility]/pharmacy #[id number], Partial fill upon patient request if the prescription is for a schedule II opioid drSuzanne.. Start Date: 08/11/21 Status: Ordered gabapentin 300 [...] drug. Start Date: 03/18/20 Status: Ordered Saw [place] 0 Refills, Maintenance, 03/18/20 7:04:00 EST, Partial [...]
--- OUTSIDE RECORDS SUMMARY | 2022-10-24 10:13 | XMS_ITS | Continuity of Care Document ---
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 Start Date: 03/18/20 Status: Ordered Saw [place] 0 Refills, Maintenance, 03/18/20 7:04:00 EST, Partial [...] recent to oldest [Reference Range]: 1 Height 167.64 cm (08/09/20 1:26 PM) Weight 73.8 kg (08/09/20 1:26 PM) Oxygen Saturation [94-100 %] 98 % (08/09/20 1:26 PM) Pulse Rate [55-90 bpm] 84 bpm (08/09/20 1:26 PM) Body Mass Index [18.5-24.99] 26.26 *H* (08/09/20 1:26 PM) Blood Pressure [90-138/55-84 mm Hg] 130/ 80mm Hg (08/09/20 1:26 PM) Temperature [96.8-100.4 DegF] 98.7 DegF (08/09/20 1:26 PM) Mode of Delivery (Oxygen) Room air (08/09/20 1:26 PM) Blood pressure sites Arm, left (08/09/20 1:26 PM) Temperature Route Oral (08/09/20 1:26 PM) Weight Obtained Via Standing scale (08/09/20 1:26 PM) Social History Social History Type Response Smoking Status Former smoker, quit more than 30 days ago; Other: quit in 1988; entered on: 03/18/20 Sex
--- OUTSIDE RECORDS SUMMARY | 2022-10-24 10:13 | XMS_ITS | Continuity of Care Document ---
Author Name Unknown Organization 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 Adult [address] [place] [address]- Attending Physician: Aditya Cruz MD Allergies, Adverse Reactions, Alerts No Known Allergies Immunizations Given and Recorded Vaccine Date Status Refusal Reason SARS-CoV-2 (COVID-19) mRNA BNT-162b2 vac 01/18/21 Recorded [...] mg, 1, capsule, By Mouth, Daily, # 30 capsule, Refills 5, Tot. Refills 5, Maintenance, 07/22/21 14:10:00 EDT, Route to Pharmacy Electronically, [facility]/pharmacy #[id number], Partial fill upon patient request if the prescription is for a schedule II opioid dr... Start Date: 07/22/21 Status: Ordered gabapentin 100 mg oral capsule See Instructions, Two caps in am and two caps in pm, Refills 0, Maintenance, 07/22/21 13:22:00 EDT,Instructions Replace Required Details, Partial fill upon patient request if the prescription is fora schedule II opioid drug. Start Date: 07/22/21 Status: Ordered meloxicam 15 mg oral tablet [...] drug. Start Date: 03/18/20 Status: Ordered Saw [place] 0 Refills, Maintenance, 03/18/20 7:04:00 EST, Partial [...] oldest [Reference Range]: 1 Height 167.64 cm (07/22/21 1:19 PM) Weight 75.7 kg (07/22/21 1:19 PM) Oxygen Saturation [94-100 %] 98 % (07/22/21 1:19 PM) Body Mass Index [18.5-24.99] 26.94 *H* (07/22/21 1:19 PM) Blood Pressure [90-138/55-84 mm Hg] 127/ 66mm Hg (07/22/21 1:19 PM) Temperature [96.8-100.4 DegF] 97.8 DegF (07/22/21 1:19 PM) Blood pressure sites Arm, right (07/22/21 1:19 PM) Temperature Route Temporal (07/22/21 1:19 PM) Weight Obtained Via Standing scale (07/22/21 1:19 PM) Social History Social History Type Response Smoking Status Former smoker, quit more than 30 days ago; Other: quit in 1988; entered on: 03/18/20 Sex
--- OUTSIDE RECORDS SUMMARY | 2022-10-24 10:13 | XMS_ITS | Continuity of Care Document ---
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 Start Date: 03/18/20 Status: Ordered Saw [place] 0 Refills, Maintenance, 03/18/20 7:04:00 EST, Partial [...] Complete heart block(Confirmed) Active OA (osteoarthritis)(Confirmed) Active Procedures Procedure Date Related Diagnosis Body Site Status Cardiac pacemaker 1 Compl eted Vital Signs Most recent to oldest [Reference Range]: 1 Height 167.64 cm (03/18/20 7:06 AM) Weight 72.27 kg (03/18/20 7:06 AM) Body Mass Index [18.5-24.99] 25.72 *H* (03/18/20 7:06 AM) Weight Obtained Via Standing scale (03/18/20 7:06 AM) Social History Social History Type Response Smoking Status Former smoker, quit more than 30 days ago; Other: quit in 1988; entered on: 03/18/20 Sex
--- OUTSIDE RECORDS SUMMARY | 2022-10-24 10:13 | XMS_ITS | Continuity of Care Document ---
Author Name Unknown Organization [facility] Ric Nabeel lt Address [address] [place] [address]- Care Team Providers Care Housemaid Name Role Phone Not on Staff, PCP Primary Care Physician Unavail able Encounter [facility] [place] Date(s): 02/26/20 - 03/27/20 [facility] Adult [address] [place] [address]- Allergies, Adverse Reactions, Alerts Substance Reaction Severity [...] drug. Start Date: 03/18/20 Status: Ordered Saw [place] 0 Refills, Maintenance, 03/18/20 7:04:00 EST, Partial [...]
--- OUTSIDE RECORDS SUMMARY | 2022-10-24 10:13 | XMS_ITS | Continuity of Care Document ---
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 Name Role Phone Aditya Cruz MD Primary Care Physician [place] [facility] [place]s): 07/18/21 - 07/25/21 [facility] Adult [address] [place] [address]- Encounter Diagnosis Right hip pain(Discharge Diagnosis) - 07/18/21 Attending Physician: Lizbet Stephenson NP Referring Physician: Aditya Cruz MD Allergies, Adverse Reactions, Alerts No Known Allergies Immunizations Given and Recorded Vaccine Date Status Refusal Reason SARS-CoV-2 (COVID-19) mRNA BNT-162b2 vac 01/18/21 Recorded SARS-CoV-2 (COVID-19) mRNA BNT-162b2 vac 07/10/20 Recorded SARS-CoV-2 (COVID-19) mRNA BNT-162b2 vac 06/19/20 Recorded influenza virus vaccine, inactivated 01/13/21 Jarvsi rded influenza virus vaccine, inactivated 12/14/20 Jarvis [...] opioid drug. Start Date: 08/09/20 Status: Ordered [facility] oral capsule By Mouth, Daily, 0 [...] 07/22/21 14:10:00 EDT, Route to Pharmacy Electronically, [facility]/pharmacy #[id number], Partial fill upon patient request if the prescription is for a schedule II opioid drSuzanne.. Start Date: 07/22/21 Status: Ordered gabapentin 100 [...] drug. Start Date: 03/18/20 Status: Ordered Saw [place] 0 Refills, Maintenance, 03/18/20 7:04:00 EST, Partial [...] Complete heart block(Confirmed) Active OA (osteoarthritis)(Confirmed) Active Diagnosis Diagnosis Type Effective Dates Health Status Cl inical Service Informant Right hip pain Discharge Diagnosis 07/18/21 Vital Signs Most recent to oldest [Reference Range]: 1 Height 167.64 cm (07/18/21 9:53 AM) Weight 76.3 kg (07/18/21 9:53 AM) Oxygen Saturation [94-100 %] 98 % (07/18/21 9:53 AM) Pulse Rate [55-90 bpm] 61 bpm (07/18/21 9:53 AM) Body Mass Index [18.5-24.99] 27.15 *H* (07/18/21 9:53 AM) Blood Pressure [90-138/55-84 mm Hg] 140/ 62mm Hg *H* (07/18/21 9:53 AM) Temperature [96.8-100.4 DegF] 97.6 DegF (07/18/21 9:53 AM) Mode of Delivery (Oxygen) Room air (07/18/21 9:53 AM) Blood pressure sites Arm, right (07/18/21 9:53 AM) Temperature Route Oral (07/18/21 9:53 AM) Weight Obtained Via Standing scale (07/18/21 9:53 AM) Social History Social History Type Response Smoking Status Former smoker, quit more than 30 days ago; Other: quit in 1988; entered on: 03/18/20 Sex
[2022-10-24] MEDS: Lactated Ringers 1,000 ML 100 ML IVCONT ×2 (10:39→17:31)
--- NOTE | 2022-10-24 12:45 | MHC.SHP ---
Pre-Procedural Eval Section A Date of Service: 10/24/22 The patient is an INPATIENT: No Changes since office visit: No Cold of Flu in the past 2 weeks, No New Medical Problems, No Changes in Medication and No Patient answered all questions The History & Physical has been completed within 30 days and I have reviewed it.: Yes Section B Chief Complaint: RT NINA Allergies: Allergies Allergy/AdvReac Type Severity Reaction Status Date / Time turmeric Allergy Intermediate hives Verified 10/19/22 13:52 Plan I have reviewed the history and physical and performed a pertinent physical examination on my patient. No changes have occurred unless specified. Time Spent With Patient Time: Total time managing care of this patient today ____ minutes.
--- NOTE | 2022-10-24 13:11 | PC.NURSE ---
report given that dr. velasquez requested that pacemaker be interrogated post op per chart freight checker to OR nurse Lela dueñas
--- NOTE | 2022-10-24 14:53 | PM.OP ---
Brief Operative Note Date of Service: 10/24/22 Pre-op diagnosis: Right hip OA Post-op diagnosis: same Procedure: Right NINA Implants: Paul Trident2 52 with 2 35 mm screws Paul Accolade 2 #6 132 deg with +2.5 36 ceramic femoral head Surgeon: Paulo Sanders MD Anesthesia: spinal Was an Touring Production Manager used for this Procedure?: Yes Touring Production Manager: Robert Smith Estimated blood loss (mL): 250 IV fluids (mL): 1,000 Pathology: other Condition: stable Disposition: PACU
--- NOTE | 2022-10-24 16:30 | PHA.MEDREC ---
Pharmacy Consult ? Medication Reconciliation Pharmacy has completed the medication reconciliation. Spoke to patient to confirm meds.
--- NOTE | 2022-10-24 17:00 | HO.PM.IMCN ---
History of Present Illness Data of Consult Service Date: 10/24/22 Requesting physician: Paulo Sanders Primary Care Provider: Aditya Cruz MD HPI Reason for consult: medical management 77-year-old male with history of complete heart block s/p pacemaker placement, hyperlipidemia, unspecified mood disorder admitted to Orthopedic surgery for management of osteoarthritis of the right hip s/p NINA with consult placed to hospitalist service for medical management. He currently has no complaints. Had spinal block and is regaining sensation in the RLE. Pain is well controlled. No etoh use, smoking, or illicit drug use. Review of Systems Review of Systems: General: No fevers, malaise, unintentional weight loss HEENT: No blurred vision, diplopia. No sore throat, nasal congestion, rhinorrhea, sinus pain, ear pain Cardiovascular: No chest pain, palpitations, or leg edema Respiratory: No shortness of breath, wheezing, cough GI: No abdominal pain, nausea, vomiting, diarrhea, constipation, melena, hematochezia : No dysuria, hematuria, increased urinary frequency, decreased urinary output MSK: No myalgia, back pain. +r hip pain Neuro: No headaches, weakness, paresthesias Skin: No rashes or lesions PMFSH Medical History BPH (benign prostatic hyperplasia) Complete heart block Hyperlipemia Mood disorder Osteoarthritis Pacemaker Family History Father Emphysema lung Mother No problems noted. Surgical History H/O colonoscopy History of bunionectomy History of permanent cardiac pacemaker placement (~11/2019) Hx of hernia repair Social History Are you a primary day care director to a significant other at home: No Do you presently have visiting nurse or other home services: No Patient Tobacco Use Status: Former Tobacco user Quit Date: 1988 Tobacco use type: Cigarette Years Smoked: 19 Use of substances other than those prescribed or required for medical reasons: No Have you been hit, kicked, punched, or otherwise hurt by someone within the past year? 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 Meds Allergies Allergy/AdvReac Type Severity Reaction Status Date / Time turmeric Allergy Intermediate hives Verified 10/19/22 13:52 Active Medications: Current Medications Acetaminophen (Acetaminophen 325 Mg Tablet) 650 mg PO Q6H PRN PRN Reason: Pain, Mild (Pain Scale 1-3) Aspirin (Aspirin 325 Mg Tablet) 325 mg PO BID [facility] Celecoxib (Celecoxib 200 Mg Capsule) 200 mg PO BID [facility] Docusate Sodium (Docusate Sodium 100 Mg Capsule) 100 mg PO BID [facility] Fluoxetine HCl (Fluoxetine Hcl 10 Mg Capsule) 10 mg PO DAILY [facility] Gabapentin (Gabapentin 100 Mg Capsule) 200 mg PO BID [facility] Hydromorphone HCl (Hydromorphone Hcl 0.5 Mg/0.5 Ml Syringe) 0.25 mg IVPUSH Q4H PRN; Protocol PRN Reason: Pain, Severe (Pain Scale 7-10) Lactated Ringer's (Lr) 1,000 mls @ 100 mls/hr IVCONT .Q10H MIS Stop: 10/25/22 15:08 Cefazolin Sodium/Dextrose (Ancef) 2 gm in 50 mls @ 100 mls/hr IV POSTOP ONE Stop: 10/24/22 16:48 Non-Formulary Medication (Cetirizine) 5 mg PO DAILY PRN PRN Reason: Allergy Symptoms Non-Formulary Medication (Saw [place]) 160 mg PO BID [facility] Non-Formulary Medication (Zinc Sulfate) 50 mg PO Q2D [facility] Ondansetron HCl (Ondansetron Hcl 4 Mg/2 Ml Vial) 4 mg IVPUSH Q8H PRN PRN Reason: Nausea and Vomiting Oxycodone HCl (Oxycodone Hcl Immed Release 5 Mg Tablet) 5 mg PO Q4H PRN PRN Reason: Pain, Moderate(Pain Scale 4-6) Oxycodone HCl (Oxycodone Hcl Er 10 Mg Tab.Er.12h) 10 mg PO BID [facility] Sodium Chloride (0.9 % Sodium Chloride Flush 3 Ml Syringe) 3 ml IVFLUSH QSHIFT FOR[facility] Home Medications Medication Instructions Recorded Confirmed Last Taken Type coenzyme Q10 75 mg capsule (Ultra 75 mg PO DAILY 01/15/20 10/24/22 10 Days Ago History CoQ10) ~10/14/22 flaxseed oil 1,000 mg capsule 1,000 mg PO DAILY 01/15/20 10/24/22 10 Days Ago History ~10/14/22 meloxicam 7.5 mg tablet 7.5 mg PO DAILY 01/15/20 10/24/22 10 Days Ago History ~10/14/22 multivitamin 1 tab PO DAILY 01/15/20 10/24/22 10 Days Ago History ~10/14/22 omega-3 fatty acids 1,000 mg 1,000 mg PO DAILY 01/15/20 10/24/22 10 Days Ago History capsule ~10/14/22 saw palmetto 160 mg capsule 160 mg PO BID 01/15/20 10/24/22 10 Days Ago History ~10/14/22 cetirizine 5 mg tablet 5 mg PO DAILY PRN Allergy Symptoms 07/20/20 10/24/22 10 Days Ago History ~10/14/22 cholecalciferol (vitamin D3) 25 25 mcg PO DAILY 01/18/21 10/24/22 10 Days Ago History mcg (1,000 unit) capsule ~10/14/22 acetaminophen 325 mg capsule 650 mg PO QID PRN Pain 05/03/21 10/24/22 10 Days Ago History (Tylenol) ~10/14/22 fluoxetine 10 mg capsule 10 mg PO DAILY 10/11/22 10/24/22 10 Days Ago History ~10/14/22 atorvastatin 10 mg tablet 10 mg PO BEDTIME 10/24/22 10/24/22 10 Days Ago History ~10/14/22 gabapentin 400 mg capsule 400 mg PO BID 10/24/22 10/24/22 10 Days Ago History ~10/14/22 Physical Exam Vital Signs and Narrative: Vital Signs: Last Vital Signs Temp 97.6 F 10/24/22 16:46 Pulse 78 10/24/22 16:46 Resp 18 10/24/22 16:46 BP 145/70 H 10/24/22 16:46 Pulse Ox 99 10/24/22 16:46 O2 Del Method Room Air 10/24/22 16:46 O2 Flow Rate 2 10/24/22 16:03 BMI result Body Mass Index 29.7 Constitutional - Awake and Alert, No apparent distress Eyes - PERRLA, EOMI Cardiovascular - S1S2, RRR, No edema Respiratory - Normal lung expansion, Normal respiratory effort, No respiratory distress, CTA bilaterally Gastrointestinal - NT / ND; +BS; No rebound or guarding Extremities - no calf tenderness bilaterally, no swelling Musculoskeletal - r hip post op bandage in place with scant sanguinous drainage Skin - Warm/Dry Neurological - Alert & oriented x3 Psychological - Appropriate affect Results Imaging Radiologist's Impressions: Impressions Pelvis X-Ray 10/24/22 15:40 IMPRESSION: Total right hip arthroplasty in typical positioning and alignment. Assessment and Plan (1) Osteoarthritis of right hip: Status: Acute Plan 77-year-old male with history of complete heart block s/p pacemaker placement, hyperlipidemia, unspecified mood disorder admitted to Orthopedic surgery for management of osteoarthritis of the right hip s/p NINA with consult placed to hospitalist service for medical management. #OA right hip s/p right NINA -POD 0 -plan per orthopedic surgery #h/o Complete Heart Block - pacemaker in place -HR stable #HLD -resume statin on dc #Mood disorder -continue ssri Thank you for this consult. Will continue to follow Time Spent With Patient Time: Total time managing care of this patient today ____ minutes.
[2022-10-24] MEDS: 0.9 % Sodium Chloride Flush 3 ML SYRINGE IVFLUSH (17:31)
[2022-10-24] MEDS: Acetaminophen 325 MG TABLET 650 MG PO (17:55)
[2022-10-24] MEDS: ceFAZolin Sodium/Dextrose,Iso 2 GM/50 ML PIGGYBACK IV (17:57)
[2022-10-24] MEDS: Celecoxib 200 MG CAPSULE PO (20:53)
[2022-10-24] MEDS: Gabapentin 100 MG CAPSULE 200 MG PO (20:53)
[2022-10-24] MEDS: Docusate Sodium 100 MG CAPSULE PO (20:53)
[2022-10-24] MEDS: oxyCODONE HCl ER 10 MG TAB.ER.12H PO (20:53)
[2022-10-25] MEDS: oxyCODONE HCl Immed Release 5 MG TABLET PO ×3 (00:35→19:40)
[2022-10-25] MEDS: Lactated Ringers 1,000 ML 100 ML IVCONT ×2 (01:58→12:39)
[2022-10-25 03:53] VITALS: BP 121/61; PULSE 85; RESP 19; TEMP 36.4; O2SAT 95
[2022-10-25 05:29] LABS: MANUAL DIFF FLAG NO
[2022-10-25 05:33] LABS: Basophils Percent Auto 0.1 % (0-2); Hematocrit 36.2 % (42.0-52.0); Hemoglobin 12.2 g/dl (14.0-18.0); Imm Gran Abs Auto 0.04 X10*3/uL (0.00-0.03); Imm Gran Pct Auto 0.4 % (0.0-0.4); Lymphocytes Absolute Auto 0.6 X10*3/uL (1.2-4.9); Lymphocytes Percent Auto 5.2 % (20-40); Mean Corpuscular HGB Conc 33.7 g/dl (31.0-36.0); Mean Corpuscular Hemoglobin 29.8 pg (27.0-33.0); Mean Corpuscular Volume 88.5 fL (80.0-98.0); Mean Platelet Volume 10.6 fL (9.4-12.4); Monocytes Absolute Auto 0.7 X10*3/uL (0.1-1.2); Monocytes Percent Auto 5.9 % (2-11); Neutrophils Absolute Auto 9.8 x10*3/uL (2.0-8.3); Neutrophils Percent Auto 88.4 % (45-73); Platelet Count 188 X10*3/uL (160-400); Red Blood Count 4.09 X10*6/uL (4.60-5.80); Red Cell Distribution Width 13.2 % (11.0-16.0); White Blood Count 11.1 X10*3/uL (4.8-10.8)
[2022-10-25 05:45] LABS: Anion Gap 11 (12-20); Blood Urea Nitrogen 20 mg/dL (9-16); Calcium 8.8 mg/dL (8.4-10.2); Carbon Dioxide 25 mmol/L (22-29); Chloride 104 mmol/L (96-108); Creatinine Clr Calc Pharmacy 72.5; Estimated Glomerular Filt Rate > 60; Glucose Fasting 144 mg/dL (60-99); Potassium 4.2 mmol/L (3.3-5.1); Sodium 136 mmol/L (135-145)
[2022-10-25 07:15] VITALS: BP 143/83; PULSE 73; RESP 16; TEMP 36.6; O2SAT 97
[2022-10-25] MEDS: Gabapentin 100 MG CAPSULE 200 MG PO ×2 (07:19→20:40)
[2022-10-25] MEDS: oxyCODONE HCl ER 10 MG TAB.ER.12H PO ×2 (07:19→20:40)
[2022-10-25] MEDS: FLUoxetine HCl 10 MG CAPSULE PO (07:19)
[2022-10-25] MEDS: Docusate Sodium 100 MG CAPSULE PO ×2 (07:20→20:40)
[2022-10-25] MEDS: Celecoxib 200 MG CAPSULE PO ×2 (07:20→20:40)
--- NOTE | 2022-10-25 07:33 | PM.PNORT ---
Subjective Subjective Date of Service: 10/25/22 Interval history: POD1 s/p RTHA. No overnight events. Patient is resting in bed comfortably. Pain is well managed. No additional complaints. Physical Exam Vital Signs: Vital Signs: Last Vital Signs Temp 97.9 F 10/25/22 07:15 Pulse 73 10/25/22 07:15 Resp 16 10/25/22 07:15 BP 143/83 H 10/25/22 07:15 Pulse Ox 97 10/25/22 07:15 O2 Del Method Room Air 10/25/22 07:15 O2 Flow Rate 2 10/24/22 16:03 BMI result Body Mass Index 29.7 Const: General: cooperative, healthy appearing and no acute distress Resp: Effort & Inspection: normal respiratory effort and able to speak in complete sentences Cardio: Rate: regular rate Peripheral pulses: Peripheral pulses 2+ throughout GI: Palpation (GI): Soft to palpation Skin: Lesions: no lesions Rashes: no rashes Extrem: Other: Right hip Aquacel is c/d/i. Able to dorsi/plantar flex. NVI. Procedures Date of Service Date of Service: 10/25/22 Progress Note: A&P Assessment and plan (1) Status post total replacement of right hip: Status: Acute Plan Continue pain mgmnt Begin ASA for dvt ppx begin PT for RTHA Dispo planning-Pending PT eval, pain mgmnt Time Spent With Patient Time: Total time managing care of this patient today ____ minutes. Quality Stroke Does the patient have a stroke diagnosis?: No VTE Prior VTE?: No VTE Risk Level:: Medical - moderate - high VTE Device Contraindication: N/A - Device Ordered VTE Drug Contraindication: N/A - Med Ordered
--- NOTE | 2022-10-25 09:29 | P.DS_ITS ---
DS: Providers Provider Date of Service: 10/26/22 Date of admission: 10/24/22 10:00 Primary care physician: Aditya Cruz MD Consults: 10/24/22 16:19 Consult to Hospitalist Routine Comment: Consulting Provider: Hospitalist Reason For Exam: medical managment / pace maker DS: Diagnosis Discharge Diagnosis (1) Status post total replacement of right hip: Status: Acute DS: Summary Hospital Course Hospital Course: The patient underwent a successful right total hip arthroplasty, they were transferred to PACU and then to the floor to recover. During their stay, their vitals were stable, afebrile at 97.9. Labs were unremarkable, H/H 12.2/36.2. POD 1 they were started on Aspirin 325mg po bid for DVT ppx, they also received Physical Therapy services twice a day. Prior to discharge, their dressing was changed, incision clean dry and intact, new Aquacel dressing applied and the plan was to be discharged home with VNA services. Time Spent with Patient Time attestation: Total time managing care of this patient today ____ minutes. Discharge coordination time: Less than 30 minutes Quality: Safe Use of Opioids Does Pt have an Active Cancer Diagnosis on the Problem List?: No Quality: Stroke Does the patient have a stroke diagnosis?: No Physical Exam Vital Signs: Vital Signs: Last Vital Signs Temp 97.9 F 10/25/22 07:15 Pulse 73 10/25/22 07:15 Resp 16 10/25/22 07:15 BP 143/83 H 10/25/22 07:15 Pulse Ox 97 10/25/22 07:15 O2 Del Method Room Air 10/25/22 07:15 O2 Flow Rate 2 10/24/22 16:03 BMI result Body Mass Index 29.7 Const: General: cooperative, healthy appearing and no acute distress Resp: Effort & Inspection: normal respiratory effort and able to speak in complete sentences Cardio: Rate: regular rate Peripheral pulses: Peripheral pulses 2+ throughout GI: Palpation (GI): Soft to palpation Skin: Lesions: no lesions Rashes: no rashes Extrem: Other: Right hip Aquacel is c/d/i. Able to dorsi/plantar flex. NVI. DS: Data Data Completed and Pending Pending studies at discharge: Pending at discharge 10/24/22 14:42 Surgical [PTH] Routine Labs on day of discharge: Laboratory Results - last 24 hr 10/25/22 10/25/22 05:20 05:20 WBC 11.1 H RBC 4.09 L Hgb 12.2 L Hct 36.2 L MCV 88.5 MCH 29.8 MCHC 33.7 RDW 13.2 Plt Count 188 MPV 10.6 Immature Gran % (Auto) 0.4 Neut % (Auto) 88.4 H Lymph % (Auto) 5.2 L Isabella % (Auto) 5.9 Eos % (Auto) 0.0 Baso % (Auto) 0.1 Lymph # (Auto) 0.6 L Isabella # (Auto) 0.7 Eos # (Auto) 0.0 Baso # (Auto) 0.0 Abs Immat Gran (auto) 0.04 H Absolute Neuts (auto) 9.8 H Absolute Nucleated RBC 0.000 Nucleated RBC % (auto) 0.0 Sodium 136 Potassium 4.2 Chloride 104 Carbon Dioxide 25 Anion Gap 11 L BUN 20 H Creatinine 0.82 Estim Creat Clear Calc 72.5 Estimated GFR > 60 Fasting Glucose 144 H Calcium 8.8 Discharge Plan Discharge Anticipated Discharge Date/Time: 10/25/22 15:25 Patient Disposition: Home Health Service Discharge Diagnosis: s/p RTHA Referrals: Robert Smith PA-C [Physician Pct] - 11/09/22 2:00 pm Discharge Medications: New celecoxib 200 mg Capsule 200 mg PO BID 30 Days Qty: 60 0RF acetaminophen 325 mg Tablet 650 mg PO Q6H PRN (Reason: Pain, Mild (Pain Scale 1-3)) 30 Days Qty: 240 0RF aspirin 325 mg Tablet 325 mg PO BID 42 Days Qty: 84 0RF docusate sodium 100 mg Capsule 100 mg PO BID 30 Days Qty: 60 0RF oxycodone 5 mg Tablet 5 mg PO Q4H PRN (Reason: Pain, Moderate(Pain Scale 4-6)) 7 Days Qty: 42 0RF Rx Instructions: Partial Fill upon patient request. Continued fluoxetine 10 mg capsule 10 mg PO DAILY atorvastatin 10 mg tablet 10 mg PO BEDTIME gabapentin 400 mg capsule 400 mg PO BID multivitamin Tablet 1 tab PO DAILY saw palmetto 160 mg capsule 160 mg PO BID Rx Instructions: give with meal/snack Ultra CoQ10 75 mg capsule 75 mg PO DAILY flaxseed oil 1,000 mg capsule 1,000 mg PO DAILY Rx Instructions: administer with a meal omega-3 fatty acids 1,000 mg capsule 1,000 mg PO DAILY cetirizine 5 mg tablet 5 mg PO DAILY PRN (Reason: Allergy Symptoms) cholecalciferol (vitamin D3) 25 mcg (1,000 unit) capsule 25 mcg PO DAILY Discontinued meloxicam 7.5 mg tablet 7.5 mg PO DAILY acetaminophen [Tylenol] 325 mg capsule 650 mg PO QID PRN (Reason: Pain) Discharge Orders: Discharge Order (Routine); Ordered 10/26/22 Ordered By: Aicha Anand Diet: Advance to usual diet Activity on Discharge: Use cane or walker Stand Alone Forms: Patient Portal Discharge page Care Plan Goals: restore fxn to right hip Health Concerns: none Plan of Treatment: Physical Therapy for total hip arthroplasty: posterior precautions, gait training, ROM, strength Limit stair climbing No showering, no tub bath-keep dressing clean, dry and intact No driving x6 weeks Continue Lovenox tabs once a day x 4 weeks Follow up with [facility] Orthopedics in 2 weeks Assessment: stable fo dc
--- NOTE | 2022-10-25 09:30 | W.MHC.F2F ---
Service Date Service Date: 10/25/22 Encounter Date of encounter: 10/25/22 Reasons for Services Signs and symptoms assessed: s/p RTHA. Pt. is considered homebound due to recent surgery. Unable to drive, poor balance, poor gait mechanics. Reason for physical therapy: home safety and mobility, therapeutic exercises, restore joint function, gait/transfer training, assess need for DME and ADL training Reason for occupational therapy: home safety and mobility, therapeutic exercises, restore joint function, gait/transfer training, assess need for DME and ADL training Homebound: Leaving the home is medically contraindicated at this time without the asist of a device and/or another person due th the listed conditions above and below. Reason homebound: unsteady gait / fall risk, pain with ambulation, pain with transfers, poor balance / fall risk and unable to drive Certification: Based on the above findings, I certify that this patient is confined to the home and needs intermittent jail care, physical therapy and/or speech therapy, or continues to need occupational therapy. The patient is under my care, and I have initiated the establishment of the plan of care. The patient will be followed by a physician who will periodically review the plan of care. Time Spent With Patient Time: Total time managing care of this patient today ____ minutes.
[2022-10-25 11:20] VITALS: BP 127/60; PULSE 76; RESP 16; TEMP 36.8; O2SAT 98
--- NOTE | 2022-10-25 11:31 | MHC.CM.PN ---
pt lives with his has own ride home dc plan home w/vna referral made
--- NOTE | 2022-10-25 14:09 | HO.POSTANES ---
Post Anesthesia Evaluation Post Anesthesia Evaluation Date of Service: 10/25/22 Vital Signs: Vital Signs Temp Pulse Resp BP Pulse Ox O2 Del Method 10/25/22 11:20 98.2 F 76 16 127/60 98 Room Air 10/25/22 07:15 97.9 F 73 16 143/83 H 97 Room Air 10/25/22 03:53 97.6 F 85 19 121/61 95 Room Air Anesthesia: Spinal and Nerve Block Mental Status: Awake Pain Control: Satisfactory Nausea/Vomiting: None Hydration: Adequate Anesthesia-Related Issues: No Anes. Related Issues
[2022-10-25] MEDS: Aspirin 325 MG TABLET PO ×2 (14:43→20:40)
[2022-10-25 16:00] VITALS: BP 134/60; PULSE 85; RESP 18; TEMP 36.4; O2SAT 97
[2022-10-25 20:00] VITALS: BP 122/57; PULSE 84; RESP 16; TEMP 36.3; O2SAT 96
[2022-10-25 23:25] VITALS: BP 140/64; PULSE 95; RESP 18; TEMP 36.6; O2SAT 98
[2022-10-26 03:25] VITALS: BP 130/62; PULSE 70; RESP 18; TEMP 36.6; O2SAT 97
[2022-10-26 05:43] LABS: MANUAL DIFF FLAG NO
[2022-10-26 05:50] LABS: Basophils Percent Auto 0.3 % (0-2); Eosinophils Absolute Auto 0.1 X10*3/uL (0.0-0.4); Hematocrit 33.4 % (42.0-52.0); Hemoglobin 10.9 g/dl (14.0-18.0); Imm Gran Abs Auto 0.03 X10*3/uL (0.00-0.03); Imm Gran Pct Auto 0.4 % (0.0-0.4); Lymphocytes Absolute Auto 1.2 X10*3/uL (1.2-4.9); Lymphocytes Percent Auto 15.2 % (20-40); Mean Corpuscular HGB Conc 32.6 g/dl (31.0-36.0); Mean Corpuscular Hemoglobin 29.2 pg (27.0-33.0); Mean Corpuscular Volume 89.5 fL (80.0-98.0); Mean Platelet Volume 10.7 fL (9.4-12.4); Monocytes Absolute Auto 0.8 X10*3/uL (0.1-1.2); Monocytes Percent Auto 10.2 % (2-11); Neutrophils Absolute Auto 5.7 x10*3/uL (2.0-8.3); Neutrophils Percent Auto 72.9 % (45-73); Red Blood Count 3.73 X10*6/uL (4.60-5.80); Red Cell Distribution Width 13.5 % (11.0-16.0); White Blood Count 7.8 X10*3/uL (4.8-10.8)
[2022-10-26] MEDS: oxyCODONE HCl Immed Release 5 MG TABLET PO ×2 (06:07→13:07)
[2022-10-26 06:14] LABS: Anion Gap 10 (12-20); Blood Urea Nitrogen 25 mg/dL (9-16); Calcium 8.7 mg/dL (8.4-10.2); Carbon Dioxide 28 mmol/L (22-29); Chloride 103 mmol/L (96-108); Creatinine Clr Calc Pharmacy 69.9; Estimated Glomerular Filt Rate > 60; Glucose Fasting 94 mg/dL (60-99); Sodium 137 mmol/L (135-145)
[2022-10-26 07:49] LABS: Platelet Count 137 X10*3/uL (160-400)
[2022-10-26 07:59] VITALS: BP 134/60; PULSE 84; RESP 16; TEMP 36.6; O2SAT 97
[2022-10-26] MEDS: Docusate Sodium 100 MG CAPSULE PO (09:09)
[2022-10-26] MEDS: Aspirin 325 MG TABLET PO (09:09)
[2022-10-26] MEDS: Zinc Sulfate 220 MG CAPSULE PO (09:10)
[2022-10-26] MEDS: Celecoxib 200 MG CAPSULE PO (09:10)
[2022-10-26] MEDS: 0.9 % Sodium Chloride Flush 3 ML SYRINGE IVFLUSH (09:11)
[2022-10-26] MEDS: FLUoxetine HCl 10 MG CAPSULE PO (09:11)
[2022-10-26] MEDS: Gabapentin 100 MG CAPSULE 200 MG PO (09:11)
[2022-10-26] MEDS: oxyCODONE HCl ER 10 MG TAB.ER.12H PO (09:11)
--- NOTE | 2022-10-26 09:29 | MHC.CM.PN ---
PT MEDICALLY CLEARED FOR D/C HOME W/NEW [facility] FOR HOME PT AND PT HAS OWN RIDE HOME.
[2022-10-26 11:50] VITALS: BP 139/65; PULSE 90; RESP 18; TEMP 36.6; O2SAT 98
--- NOTE | 2022-10-26 15:52 | W.PM.OPN ---
Operative Note Operative Note Date of Service: 10/24/22 Narrative: Date of Service: 10/24/22 Pre-op diagnosis: Right hip OA Post-op diagnosis: same Procedure: Right NINA Implants: [place] Trident2 52 with 2 35 mm screws [place] Accolade 2 #6 132 deg with +2.5 36 ceramic femoral head Surgeon: Paulo Sanders MD Anesthesia: spinal Was an Special Events Fundraiser used for this Procedure?: Yes Special Events Fundraiser: Robert Smith Estimated blood loss (mL): 250 IV fluids (mL): 1,000 Pathology: other Condition: stable Disposition: PACU Procedure in detail: Patient was brought into the operating room and placed in the left lateral decubitus position. All bony prominences were well padded and the limb was prepped and draped in standard sterile fashion. A time-out was called to identify proper site procedure proper surgeon IV antibiotics and 1 g of transaxemic acid were administered. I began by making a curvilinear incision over the posterolateral aspect of the greater trochanter. Dissection was taken down to the tensor fascia which was incised in line with the incision and a Charnley retractor was placed. A Werewolf device was used to maintain hemostasis. The hip was internally rotated and the external rotators were identified. The vessels were cauterized and a full-thickness capsular/external rotator layer was developed starting just proximal to the piriformis. This layer was tagged and a dull Hohmann retractor was placed underneath the neck in the hip was dislocated. A neck cut was made 1 cm proximal to the lesser trochanter and the head and neck were removed and measured 48 mm on the back table. I then removed the labrum and cauterized the fovea. I started with a 44 reamer and medialized to the inner table. I sequentially reamed up to a size 51 and impacted a 52mm cup at 45 degrees of inclination and 25 degrees of version. There was superior bone loss and so 2 acetabular screws were placed using standard AO technique. I then placed a 20 deg posterior lipped liner and turned my attention to the femur. I identified the piriformis insertion and used this as a starting point for my brennan cutter. The medius tendon was protected with a Hibs retractor. A Charnley awl was inserted in the canal and a curved curette used to remove the lateral bone. I irrigated copiously. I then sequentially broached in the patient's natural version to a size 6 and placed my trial implants. I used a #6/132/+2.5 based on my pre-operative template. Using a trail head I took the hip through range of motion. I was satisfied with the stability. I removed all instrumentation and copiously irrigated. I placed my final femoral implant and again took the hip through range of motion and was satisfied with the stability and length. The final 2.5 implant was impacted in place and tyhe hip reduced. I then irrigated for 3 minutes with iodine and placed 1 g of local transaxemic acid. I performed a capsular closure with 2.0 fiberwire, Nita's fascia with 0 Vicryl, subcuticular with 2-0 Vicryl and the skin with sherri. Patient was placed into a sterile dressing. Patient was extubated brought to the recovery room in stable condition. There were no known complications.
== END 2022-10-26 13:25 | disposition home health service (06) | DRG 470 ==
LOC: HO.SSSA 10:11 → HO.S3 15:11
PROVIDERS: Orthopaedic Surgery; Admitting Provider Physician Assistant; PCP Family Medicine; Visit Provider Physician Assistant
PROC: 0SR903A Replacement of Right Hip Joint with Ceramic Synthetic Substitute, Uncemented, Open Approach (ICD-10-PCS; CPT 27130; principal; 2022-10-24 11:50)
DX: M16.11 Unilateral primary osteoarthritis, right hip (principal); I44.2 Atrioventricular block, complete; E78.5 Hyperlipidemia, unspecified; F39 Unspecified mood [affective] disorder; Z95.0 Presence of cardiac pacemaker; Z87.891 Personal history of nicotine dependence; Z79.82 Long term (current) use of aspirin; Z79.899 Other long term (current) drug therapy
CPT/HCPCS: 27130; 36415; 72170; 80048; 85025; 86850; 86900; 86901; 87640; 87641; 88304; 88311; 97110; 97116; 97161; 97162; 97166; 97535; C1776; J0690; J1100; J2250; J2370; J2371; J2405; J2795; J3010

== ENCOUNTER → 2022-10-24 10:00 | Outpatient (BNV) | payer MEDICARE, SELFPAY | PROVIDERS: Admitting Provider Physician Assistant; PCP Family Medicine; Visit Provider Orthopaedic Surgery | DX: M16.11 Unilateral primary osteoarthritis, right hip (principal); Z96.641 Presence of right artificial hip joint | CPT/HCPCS: 27130; G0180 ==

== ENCOUNTER → 2022-10-24 10:00 | Outpatient (BNV) | payer MEDICARE, SELFPAY | PROVIDERS: Admitting Provider Physician Assistant; PCP Family Medicine; Visit Provider Physician Assistant | DX: M16.11 Unilateral primary osteoarthritis, right hip (principal) | CPT/HCPCS: 99222 ==

== ENCOUNTER 2022-10-30 08:58 | Outpatient (AMB) | payer MEDICARE, SELFPAY ==
--- NOTE | 2022-10-30 09:04 | MHC.OFFVIS ---
Intake Intake Visit Reasons: change bandage Intake Note: Campbell 77 yr old male presents for a dressing change for his Right NINA from DOS 10/24/[address] Sanders. States he is having discomfort and his pain is tolerable. Allergies turmeric Allergy (Intermediate, Verified 10/30/22 09:12) hives HPI change bandage HPI Details 77-year-old male who returns to the office today for a dressing change s/p right NINA, 10/24/[address] Sanders. He states his pain is tolerable but he does continue to have discomfort in his right hip. He is doing well otherwise and is has no other concerns. [facility] Medical History BPH (benign prostatic hyperplasia) Complete heart block Hyperlipemia Mood disorder Osteoarthritis Osteoarthritis of right hip Pacemaker Surgical History H/O colonoscopy History of bunionectomy History of permanent cardiac pacemaker placement (~11/2019) Hx of hernia repair Family History Father Emphysema lung Mother No problems noted. 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 There is some serous fluid on his aqua sophia dressing with some surrounding swelling along the incision. No erythema. NVI. Assessment & Plan Assessment & Plan (1) Status post total replacement of right hip: Code(s): Z96.641 - Presence of right artificial hip joint Plan A new joint dressing was applied on the right hip. I did encourage strict elevation with ankle pumps to help with circulation and to perhaps sit on a pillow on the right side so he is taking some pressure off the incision area. He will see us back in 1 week for his routine post-op appointment, sooner if needed. Patient Instructions: Scribed for Robert Smith PA-C, by Maksim Means medical receptionist assistant, on 10/30/2022 at 9:15 AM EST. IRobert PA-C, have personally reviewed and agree with the information entered by the scribe. Coding Level of Care Code Global (71366) Diagnoses Status post total replacement of right hip Z96.641
== END 2022-10-30 09:57 | disposition home or self-care (01) ==
PROVIDERS: PCP Family Medicine; Visit Provider Physician Assistant
DX: Z96.641 Presence of right artificial hip joint (principal)
CPT/HCPCS: 99024

== ENCOUNTER → 2022-10-30 08:58 | Outpatient (BNVA) | payer MEDICARE, SELFPAY | PROVIDERS: PCP Family Medicine; Visit Provider Physician Assistant ==

== ENCOUNTER 2022-11-03 12:20 | Outpatient (AMB) | payer MEDICARE, SELFPAY ==
--- NOTE | 2022-11-03 12:27 | A.OFFVIS_ITS ---
Intake Intake Visit Reasons: bandage change Intake Note: Suzanna is a 77 year old male who presents today for a bandage change. Allergies turmeric Allergy (Intermediate, Verified 11/03/22 12:28) hives HPI bandage change HPI Details 77-year-old male who presents in the office today for a bandage change; 10 days status post right total hip arthroplasty, which was performed on 10/24/[address] Sanders. [facility] Medical History BPH (benign prostatic hyperplasia) Complete heart block Hyperlipemia Mood disorder Osteoarthritis Osteoarthritis of right hip Pacemaker Surgical History H/O colonoscopy History of bunionectomy History of permanent cardiac pacemaker placement (~11/2019) Hx of hernia repair Family History Father Emphysema lung Mother No problems noted. 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 Jackson intact. No surrounding erythema or drainage. No signs of infection. NVI. Assessment & Plan Assessment & Plan (1) Status post total replacement of right hip: Comment: 10/24/2022 NE Code(s): Z96.641 - Presence of right artificial hip joint Plan Mr. Luna is a 77-year-old male who presents in the office today for a bandage change; 10 days status post right total hip arthroplasty, which was performed on 10/24/[address] Sanders. Bandage change was performed while in the office today. Follow up will be at his regularly scheduled appointment, or sooner if needed. Patient Instructions: Scribed for Aicha Anand PA-C by Vilma Rodriguez medical record transcriber, on 11/03/2022 at 12:24 pm, EST. Your attestation Coding Level of Care Code Global (79513) Diagnoses Status post total replacement of right hip Z96.641
== END 2022-11-03 12:30 | disposition home or self-care (01) ==
PROVIDERS: PCP Family Medicine; Visit Provider Physician Assistant
DX: Z96.641 Presence of right artificial hip joint (principal)
CPT/HCPCS: 99024

== ENCOUNTER → 2022-11-03 12:20 | Outpatient (BNVA) | payer MEDICARE, SELFPAY | PROVIDERS: PCP Family Medicine; Visit Provider Physician Assistant ==

== ENCOUNTER 2022-11-09 13:44 | Outpatient (AMB) | payer MEDICARE, SELFPAY ==
--- NOTE | 2022-11-09 13:58 | MHC.OFFVIS ---
Intake Vital Signs 11/09/22 14:00 Height 5 ft 4 in Weight 170 lb BMI 29.2 Intake Visit Reasons: PO-RT NINA 10/24/22 Intake Note: Campbell a 77 year old male who presents today for a post operative right NINA on 10/24/22. Patient reports he is doing well he completed in home therapy and starts outpatient therapy starts tomorrow. His pain level is 1-2 out of 10. Allergies turmeric Allergy (Intermediate, Verified 11/09/22 14:03) hives HPI PO-RT NINA 10/24/22 HPI Details 77-year-old male who returns to the office today for post-op right NINA, 10/24/22. He states he has minimal pain and is doing well overall. He rates the pain as 2 on the scale of 0-10. He is completed with his home therapy and is about to start his out patient therapy tomorrow. He has no concerns otherwise. [facility] Medical History BPH (benign prostatic hyperplasia) Complete heart block Hyperlipemia Mood disorder Osteoarthritis Osteoarthritis of right hip Pacemaker Surgical History H/O colonoscopy History of bunionectomy History of permanent cardiac pacemaker placement (~11/2019) Hx of hernia repair Family History Father Emphysema lung Mother No problems noted. 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 No pain with ROM of hip. No pain with hip flexion. Calf supple, nontender. NVI. Assessment & Plan Assessment & Plan (1) Status post total replacement of right hip: Comment: 10/24/2022 NE Code(s): Z96.641 - Presence of right artificial hip joint Plan Jaylen removed, steri strips applied. He will begin to transition to Outpatient PT to continue working on Gait training, core and glute strength. No driving for another 4 weeks. He will require ppx abx for dental procedures. He will f/u in 4 weeks, sooner if needed. Orders: Orders PT Evaluation and Treatment 11/08/22 Z96.641 - Presence of right artificial hip joint Medications: Refilled acetaminophen 650 mg (2 x 325 mg) PO Q6H PRN 240 tabs 0RF Pain, Mild (Pain Scale 1-3) 30 days celecoxib 200 mg PO BID 60 caps 0RF 30 days Patient Instructions: Scribed for Robert Smith PA-C, by Maksim Means resident medical officer, on 11/09/2022 at 2:00 PM EST. I, Robert Smith PA-C, have personally reviewed and agree with the information entered by the scribe. Coding Level of Care Code Global (05127) Diagnoses Status post total replacement of right hip Z96.641
[2022-11-09 14:00] VITALS: BMI 29.2
== END 2022-11-09 14:19 | disposition home or self-care (01) ==
PROVIDERS: Visit Provider Physician Assistant
DX: Z96.641 Presence of right artificial hip joint (principal)
CPT/HCPCS: 99024

== ENCOUNTER → 2022-11-09 13:44 | Outpatient (BNVA) | payer MEDICARE, SELFPAY | PROVIDERS: Visit Provider Physician Assistant | DX: Z96.641 Presence of right artificial hip joint (principal) ==

== ENCOUNTER 2022-12-07 12:59 | Outpatient (AMB) | payer MEDICARE, SELFPAY ==
--- NOTE | 2022-12-07 13:06 | MHC.OFFVIS ---
Intake Intake Visit Reasons: RT NINA 10/24/22 Intake Note: Campbell is a 77 year old male who presents today for a post operative appointment s/p Right NINA on 10/24/22. Patient reports that he is dong well with no concern Allergies turmeric Allergy (Intermediate, Verified 11/09/22 14:03) hives HPI RT NINA 10/24/22 HPI Details Cmapbell is a 77 year old man ~6 weeks S/P right NINA. He says he is doing well without any complaints. He has been attending PT, which he says is going well, and ambulates with his cane. He is happy with his progress REPLACED BY [facility] Medical History BPH (benign prostatic hyperplasia) Complete heart block Hyperlipemia Mood disorder Osteoarthritis Osteoarthritis of right hip Pacemaker Surgical History H/O colonoscopy History of bunionectomy History of permanent cardiac pacemaker placement (~11/2019) Hx of hernia repair Family History Father Emphysema lung Mother No problems noted. 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 Review of Systems Const All systems reviewed & are unremarkable except as noted in HPI and below Physical Exam Const General: no acute distress, alert and awake Orientation/consciousness: patient oriented x3 HEENT Head: Yes normocephalic and Yes atraumatic Eyes EOM: EOMs intact bilaterally Resp Effort & Inspection: normal respiratory effort and able to speak in complete sentences Cardio Jugular venous distension: no JVD Skin General skin exam: turgor normal Rashes: no rashes Neuro General: patient oriented x3 Extrem Other: Right Hip: Well-healed incision No groin pain with hip ROM Normal gait Walking comfortably Psych Appearance: grossly normal Affect: normal affect Attitude: cooperative Results Reviewed Results Reviewed: I personally reviewed relevant radiographs. Right total hip arthroplasty in expected post operative position with no hardware complications or evidence of loosening Assessment & Plan Assessment & Plan (1) Status post total replacement of right hip: Comment: 10/24/2022 NE Code(s): Z96.641 - Presence of right artificial hip joint Plan: This is a 77 year old man S/P right NINA, DOS: 10/24/22. He is doing well, within expectation, and has been attending PT. He denies any pain and ambulates with an assistive cane. I recommend he continue with PT and activity as tolerated. He will follow up in 6 weeks. Discussed posterior hip precautions and dental prophylaxis. He is scheduled for a dental appointment in a few months. Plan Scribed for Paulo Sanders MD by Elijah Evans, medical grade shoemaker, on 12/07/22 at 1:30 PM, EST. Coding Level of Care Code Global (30479) Diagnoses Status post total replacement of right hip Z96.641
== END 2022-12-07 14:11 | disposition home or self-care (01) ==
PROVIDERS: PCP Family Medicine; Visit Provider Orthopaedic Surgery
DX: Z96.641 Presence of right artificial hip joint (principal)
CPT/HCPCS: 99024

== ENCOUNTER → 2022-12-07 12:59 | Outpatient (BNVA) | payer MEDICARE, SELFPAY | PROVIDERS: PCP Family Medicine; Visit Provider Orthopaedic Surgery ==

== ENCOUNTER → 2022-12-12 10:54 | Outpatient (REF) | payer MEDICARE, SELFPAY ==
--- NOTE | 2022-12-12 10:55 | CA_ITS ---
Transthoracic Echocardiogram Patient (Last, First, Middle): Campbell Luna E Gender: Male Date of : 1945 Age: 77 Procedure Date: 12/12/2022 Procedure Type: Transthoracic Echocardiogram Location: OP Height: 167.64 cm Weight: 77.11 kg BSA: 1.87 m2 Heart Rate: bpm BP: 120 / 80 mmHg [employer]der [employer] Arc: DANNY Referring MD: Red Barron MD Customer Experience Retail Clerk: Red Barron MD Symptoms: I44.2 - Atrioventricular block, complete Study Quality: Fair ECG Rhythm: Ventriculary paced rhythm Conclusions: - 1. Low normal LV ejection fraction 50-55% with impaired relaxation filling pattern 2. Normal cardiac valvular Dopplers 3. Normal RV systolic pressure 4. No gross pericardial effusion Findings Left Ventricle Normal left ventricular cavity size. There is normal left ventricular wall thickness. The left ventricular systolic function is low normal. The visually estimated ejection fraction is between 50-55%. There is paradoxical septal motion consistent with a right ventricular pacemaker. Spectral Doppler is indicative of an impaired relaxation filling pattern. E/E prime ratio is between 8 and 15 consistent with indeterminate filling pressures. Right Ventricle Normal right ventricular cavity size and systolic function. There is a pacemaker wire seen in the right ventricle. Atria The left atrium is normal in size. Interatrial shunt cannot be excluded. The right atrium is normal in size. A pacemaker wire is identified in the right atrium. Aortic Valve The aortic valve structure and function is likely normal. There is no aortic valve stenosis. There is no aortic valve regurgitation. Mitral Valve There is mild anterior and posterior mitral leaflet thickening. There is mild mitral annular calcification. There is trace mitral valve regurgitation. There is no mitral valve stenosis. Pulmonic Valve The pulmonic valve was not well visualized. Tricuspid Valve Likely normal tricuspid valve structure and function. There is mild tricuspid valve regurgitation. The right ventricular systolic pressure is normal. The right ventricular systolic pressure is 32 mmHg. Normal right atrial pressure. There is no evidence of pulmonary hypertension. Great Vessels All visible segments of the aorta are normal in size. The pulmonary artery was not well visualized. Venous The inferior vena cava is normal in size and collapses greater than 50% with inspiration. Pericardium/Pleural There is no evidence of pericardial effusion. Measurements 2D Linear Measurements IVSd: 1.10 0.6-0.9/0.6-1.0 cm LVIDd: 4.60 3.9-5.3/4.2-5.9 cm LVIDd Index: 2.46 2.4-3.2/2.2-3.1 cm/m2 LVIDs: 3.30 2.0-3.6 cm LVPWd: 1.00 0.7-1.1 cm LA Diam: 3.00 2.7-3.8/3.0-4.0 cm LAIDs Index: 1.60 1.5-2.3 cm/m2 LV Mass: 211.56 67-162/88-224 g LV Mass Index: 113.14 43-95/49-115 g/m2 LVOT Diam: 2.00 3.0+(-)1.3 cm 2D Systolic Function EF 4C: 52.00 >55% EF 2C: 56.30 >55% EF BiP: 52.30 >55% Mitral Valve MV Pk E: 0.88 MV PK A: 0.87 MV Decel Time: 271.00 E/A: 1.00 E'Lateral: 5.77 E'Medial: 5.44 E/E' Med: 16.10 E/E' Lat: 15.20 PHT: 79.00 MVA PHT: 2.78 Decel [place]: 3.24 Aortic Valve AoV Pk Regino: 1.05 AoV Mn Regino: 0.69 AoV VTI: 0.25 AoV Pk Grad: 4.00 Aov Mn Grad: 2.00 FRANCI Cont.VTI: 2.50 LVOT LVOT Pk Regino: 0.81 LVOT Mn Regino: 0.52 LVOT VTI: 0.20 LVOT Pk Grad: 3.00 LVOT Mn Grad: 1.00 LVOT Diam: 2.00 LVOT Area: 3.14 Diastolic Function MV Pk E: 0.88 MV Pk A: 0.87 E/A: 1.00 E'Medial: 5.44 E/E' Med: 16.10 E' Laterial: 5.77 E/E' Lat: 15.20 Right Ventricle TAPSE (mm): 20.70 TVS' Regino: 10.00 Tricuspid Valve TR Pk Regino: 2.67 TR Pk Grad: 29.00 RA Press: 3.00 RVSP: 32.00 Great Vessels Aorta Sinus of Valsalva: 3.40 2.0-3.5 cm Ao Asc: 3.00 2.1-3.4 cm Updated in Other Vendor System with Status of Final Red Barron MD electronically signed on 12/12/2022 1:51:59 PM with status of Final
== END ==
LOC: HO.CARD 10:54
PROVIDERS: PCP Family Medicine; Visit Provider Internal Medicine
DX: I44.2 Atrioventricular block, complete (principal)
CPT/HCPCS: 93306

== ENCOUNTER → 2022-12-12 10:55 | Outpatient (BNV) | payer MEDICARE, SELFPAY | PROVIDERS: PCP Family Medicine; Visit Provider Internal Medicine Cardiovascular Disease | DX: I36.1 Nonrheumatic tricuspid (valve) insufficiency (principal); I34.81 Nonrheumatic mitral (valve) annulus calcification | CPT/HCPCS: 93306 ==

== ENCOUNTER 2022-12-19 09:13 | Outpatient (AMB) | payer MEDICARE, SELFPAY ==
[2022-12-19 09:18] VITALS: BP 120/80; PULSE 79; BMI 29.1
--- NOTE | 2022-12-19 09:18 | A.OFFVIS_ITS ---
Intake Vital Signs 12/19/22 09:18 Height 5 ft 4 in Weight 169 lb 12.095 oz BMI 29.1 BP 120/80 Blood Pressure Location Lt brachial Position Sitting Pulse 79 Intake Visit Reasons: 1 year follow up, after echo Intake Note: 1 year follow-up with ekg feeling good Hospital Cleaning Specialist Required: No Allergies turmeric Allergy (Intermediate, Verified 11/09/22 14:03) hives Medication List - Last Reconciled 12/19/22 by Red Barron MD acetaminophen 650 mg (2 x 325 mg) PO Q6H PRN 30 days atorvastatin 10 mg PO BEDTIME celecoxib 200 mg PO BID 30 days cetirizine 5 mg PO DAILY PRN cholecalciferol (vitamin D3) 25 mcg PO DAILY coenzyme Q10 (Ultra CoQ10) 75 mg PO DAILY docusate sodium 100 mg PO BID PRN flaxseed oil 1,000 mg PO DAILY fluoxetine 10 mg PO DAILY gabapentin 400 mg PO BID multivitamin 1 tab PO DAILY omega-3 fatty acids 1,000 mg PO DAILY saw palmetto 160 mg PO BID HPI HPI Comments History of Present Illness Details Campbell comes for follow-up. He has been doing well. He recently had hip surgery and is more mobile. Denies any worsening shortness of breath, orthopnea, PND, leg edema. No lightheadedness, syncope. Comes for pacemaker evaluation. Recent echocardiogram shows low normal LVEF of 50-55%. [facility] Medical History BPH (benign prostatic hyperplasia) Mood disorder Hyperlipemia Osteoarthritis Osteoarthritis of right hip Pacemaker Complete heart block Surgical History H/O colonoscopy Hx of hernia repair History of bunionectomy History of permanent cardiac pacemaker placement (~11/2019) Family History Father Emphysema lung Mother No problems noted. 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 Review of Systems Const Denies chills, Denies fatigue, Denies fever(s), Denies frequent falls, Denies weakness, Denies weight gain and Denies weight loss ENT Denies dizziness Card Denies chest pain, Denies leg edema, Denies lightheadedness, Denies palpitations, Denies dyspnea, Denies dyspnea on exertion, Denies orthopnea and Denies other (loss of consciousness) Resp Denies cough, Denies dyspnea and Denies dyspnea on exertion GI Denies hematochezia and Denies change in stool character Musc Denies abnormal gait, Denies muscle weakness, Denies numbness, Denies radiating pain into limb and Denies tingling Neuro Denies abnormal gait, Denies dizziness, Denies frequent falls, Denies numbness, Denies tingling and Denies weakness Endo Denies fatigue and Denies palpitations Physical Exam Vital Signs: Last Vital Signs Pulse 79 12/19/22 09:18 BP 120/80 12/19/22 09:18 BMI result Body Mass Index 29.1 Const General: cooperative, comfortable, no acute distress, alert, awake and well groomed Nutritional Appearance: average body habitus Orientation/consciousness: patient oriented x3 Limitations: no limitations Neck Neck: Yes trachea midline, Yes supple and Yes no JVD Resp Effort & Inspection: normal respiratory effort Auscultation: clear to auscultation bilaterally Cardio Jugular venous distension: no JVD Palpation: normal PMI Rate: regular rate Rhythm: regular rhythm Heart sounds: S1 normal heart sound present, S2 normal heart sound present, no click, no gallops, no murmurs and no rubs GI Auscultation: normal bowel sounds Neuro General: patient oriented x3 and no focal motor deficits Extrem General: Yes no clubbing, cyanosis or edema Psych Appearance: grossly normal Office Procedures Cardiac Device Check Cardiac Device Check Details: Dual-chamber Medtronic pacemaker in place. Programmed in DDD at 60 beats per minute. Ventricular pacing 100% of the time. Atrial pacing thresholds are excellent and reprogrammed to enhance battery life. Ventricular pacing thresholds adequate and reprogrammed to enhance battery life. Pacing lead impedance is stable. No arrhythmias detected. Battery life is at about 9 years [id number] Cardiac Device Check, pacemaker dual lead Procedure code (CPT) selection complete EKG Details: EKG shows atrially sensed, ventricular paced rhythm [id number], Complete Assessment & Plan Assessment & Plan (1) Pacemaker: Comment: 11/2019 Code(s): Z95.0 - Presence of cardiac pacemaker Plan: Cardiac pacemaker in-situ for complete heart block and patient pacer dependent in the ventricle. Low normal LV ejection fraction noted on recent echocardiogram. No symptoms. Pacemaker is working well. Will follow-up remotely every 3 months and follow up in the clinic in 1 year's time. Signs and symptoms of progressive cardiomyopathy and heart failure were discussed. He understands and agrees. Follow up in the clinic in 1 year's time, sooner p.r.n.. Thank you for allowing me to partake in his care Medications: Changed From docusate sodium 100 mg PO BID 30 days 60 caps 0RF To docusate sodium 100 mg PO BID PRN Coding Level of Care Code Est Pt Level 4 (54875) Diagnoses Pacemaker Z95.0 CPT Codes Cardiac Device Check - Cardiac Device 2: 40816-PS Cardiac Device Check, pacemaker dual lead ([id number]) EKG - CPT: 66331-Rvqujflucgnvcxkbo, Complete ([id number])
== END 2022-12-19 09:43 | disposition home or self-care (01) ==
PROVIDERS: PCP Family Medicine; Referring Provider Family Medicine; Visit Provider Internal Medicine Cardiovascular Disease
DX: I44.2 Atrioventricular block, complete (principal); Z95.0 Presence of cardiac pacemaker
CPT/HCPCS: 93280; 99214

== ENCOUNTER → 2022-12-19 09:13 | Outpatient (BNVA) | payer MEDICARE, SELFPAY | PROVIDERS: PCP Family Medicine; Referring Provider Family Medicine; Visit Provider Internal Medicine Cardiovascular Disease | DX: Z45.018 Encounter for adjustment and management of other part of cardiac pacemaker (principal) | CPT/HCPCS: 93005; 93280; 99212 ==

== ENCOUNTER 2022-12-21 11:00 | Outpatient (RCR) | payer MEDICARE, SELFPAY ==
--- NOTE | 2022-11-10 14:50 | MHC.PT.EP ---
[facility] [place] Office [place] Office [place] Office [address] Sin Castro [address] [phone] F: [phone] F: [phone] F: [phone] F: [phone] Physical Therapy Plan of Care Date of Evaluation: Date of Surgery: 10/24/22 Diagnosis: RT NINA Assessment: Pt is a 77 y/o male s/p R THR with a posterior approach on 10/24/22. Pt understands hip precautions, occasional verbal reminder required to adjust to appropriate position Pt has decreased tolerance for transfers, walking up stairs and experiences pain with single limb activities secondary to limited hip AROM/PROM, decreased hip strength, hip muscle tightness, surgical healing process, and pain. Pt is deemed an appropriate candidate for skilled PT services as he is highly motivated to improve physical impairments to maximize his functional recovery. Frequency and Duration: The patient will be seen 2x/wk x6wks Short Term Goals: Initiate HEP Improve pain to <2/10 Independent with posterior hip precautions Pt will be able to navigate stairs with reciprocal gait Senior Living Goals: [place] in HEP Walk at least one mile with at most a little bit of difficulty; initial rating: extreme difficulty or unable to perform Improve LEFI outcome score to by at least 9 points Pt will be able to go up and down a flight of stairs without difficulty; initial rating: moderate difficulty Treatment Plan: Modalities to reduce pain, spasms and effusion. Manual therapy to restore motion and function. Therapeutic exercise to improve strength and flexibility. Neuromuscular re-education for posture and balance. Therapeutic activities to return to functional activities of daily living. Electronically signed by: Linus Rider PT. Please sign and return to therapist. Thank you for your referral.
--- NOTE | 2022-12-21 16:17 | MHC.PT.DC ---
[facility] [employer] Office [place] Office [place] Office [address] [place] [address] [phone] F: [phone] F: [phone] F: [phone] F: [phone] Physical Therapy Discharge Report Diagnosis: RT NINA Date of Surgery: 10/24/22 Date of Evaluation: 11/10/22 Date of Discharge: 12/21/22 Treatments to Date: 13 Cancellations to Date: No Shows to Date: Discharge Status: Achieved Goals Improved Function Independent with HEP Discharge Summary: Campbell has been an active participant in his therapy with good home program compliance. We are in agreement with DC today as he has met most of his therapeutic goals, is improved of his initial symptoms, and is independent with his home program for self management. Electronically signed by: Linus Rider PT Please sign and return to therapist. Thank you for your referral.
== END 2022-12-21 16:17 | disposition home or self-care (01) ==
LOC: HO.PTCHIC 11:00
PROVIDERS: PCP Family Medicine; Visit Provider Orthopaedic Surgery
DX: Z96.641 Presence of right artificial hip joint (principal)
CPT/HCPCS: 97110; 97112; 97140; 97161; 97530

== ENCOUNTER → 2023-01-06 23:59 | Outpatient (BNV) | payer MEDICARE, SELFPAY ==
--- NOTE | 2023-01-29 09:00 | A.OFFVIS_ITS ---
Intake Intake Visit Reasons: Remote Device Check- Medtronic Allergies turmeric Allergy (Intermediate, Verified 01/12/23 12:22) hives [facility] Medical History BPH (benign prostatic hyperplasia) Mood disorder Hyperlipemia Osteoarthritis Osteoarthritis of right hip Pacemaker Complete heart block Surgical History H/O colonoscopy Hx of hernia repair History of bunionectomy History of permanent cardiac pacemaker placement (~11/2019) Family History Father Emphysema lung Mother No problems noted. 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 Pacemaker function is adequate. Patient's pacer dependent in the ventricle [id number] Cardiac Device Interrogation, pacemaker Procedure code (CPT) selection complete Coding Level of Care Code Procedure Only CPT Codes Cardiac Device Check - Cardiac Device 12: [id number] Cardiac Device Interrogation, pacemaker ([id number])
== END ==
PROVIDERS: PCP Family Medicine; Visit Provider Internal Medicine Cardiovascular Disease
DX: I44.2 Atrioventricular block, complete (principal); Z95.0 Presence of cardiac pacemaker
CPT/HCPCS: 93294

== ENCOUNTER 2023-01-12 10:32 | Outpatient (AMB) | payer MEDICARE, SELFPAY ==
[2023-01-12 12:18] VITALS: BP 120/80; PULSE 68; O2SAT 97
--- NOTE | 2023-01-12 12:18 | MHC.OFFWIV ---
Intake Vital Signs 01/12/23 12:18 Weight 174 lb BP 120/80 Blood Pressure Location Rt brachial Position Sitting Pulse 68 Pulse Source Pulse Oximeter Pulse Oximetry (%) 97 Oxygen Delivery Method Room Air Intake Visit Reasons: EST/right leg and hip pain Intake Note: Patient here because in october he had hip surgery and in december his had a fall and pt went to catch her and hurt his right leg. He states the pain didnt start until a couple of days ago but it is achy . Pt would like xray results if any done to be faxed to Dr. Paulo Bailey. Patient Tobacco Use Status: Former Tobacco user Quit Date: 1988 Allergies turmeric Allergy (Intermediate, Verified 01/12/23 12:22) hives Do you need a note to return to daycare/school/sports/work: No HPI HPI Comments History of Present Illness Details This is a 77-year-old male who presents to the office today for sick visit. patient states he underwent a right hip replacement in 10/2022. Patient had been doing well since then. His fell 12/30/2022 and he ran to catch her. He states he started to developed right hip/thigh pain several days following this incident. He denies any numbness/ weakness / paresthesias of his right lower extremity. He has been able to ambulate and bear weight but has been using a cane again. [facility] Medical History BPH (benign prostatic hyperplasia) Mood disorder Hyperlipemia Osteoarthritis Osteoarthritis of right hip Pacemaker Complete heart block Surgical History H/O colonoscopy Hx of hernia repair History of bunionectomy History of permanent cardiac pacemaker placement (~11/2019) Family History Father Emphysema lung Mother No problems noted. 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 Review of Systems Const All systems reviewed & are unremarkable except as noted in HPI and below Reports no additional complaints Eyes Reports no additional complaints ENT Reports no additional complaints Card Reports no additional complaints Resp Reports no additional complaints GI Reports no additional complaints Reports no additional complaints Musc Reports no additional complaints Skin/Breast Reports system reviewed and no additional complaints, except as documented Neuro Reports no additional complaints Psych Reports no additional complaints Endo Reports no additional complaints Rashid/Lymph Reports no additional complaints Aller/Immun Reports no additional complaints Physical Exam Vital Signs: Last Vital Signs Pulse 68 01/12/23 12:18 BP 120/80 01/12/23 12:18 Pulse Ox 97 01/12/23 12:18 Oxygen Delivery Method Room Air 01/12/23 12:18 Const Other: Vital signs reviewed. Constitutional: Non-toxic appearing. No acute distress. Well-developed and well-nourished. HEENT: Normocephalic and atraumatic. Skin: Warm and dry. No rashes or lesions noted. Neck: Full and painless range of motion. No cervical lymphadenopathy. Cardio: Regular rate. No lower extremity edema. No JVD. Pulmonary: No respiratory distress. No accessory muscle usage. Gastrointestinal: Soft, nontender, and nondistended in all 4 quadrants. Musculoskeletal: Full but slightly painful range of motion the right hip. No focal or bony tenderness to palpation the right hip. No deformity or other signs of injury. Neuro: Alert and oriented x4. Cranial nerves 2-12 grossly intact. No focal deficits appreciated. Psych: Normal mood and affect. Assessment & Plan Assessment & Plan (1) Status post total replacement of right hip: Comment: 10/24/2022 AR Code(s): Z96.641 - Presence of right artificial hip joint (2) Right hip pain: Code(s): M25.551 - Pain in right hip Plan This is a 77-year-old male status post right total hip replacement on 10/24/2022 presenting to the office complaining of right hip /thigh pain after running to catch his from a fall. Differential diagnosis includes right hip flexor/quadriceps sprain/strain verses periprosthetic hip fracture versus hip dislocation. Check x-ray of the right hip and right femur to rule out dislocation/ fracture. Results will be sent to patient's orthopedic surgeon. If x-ray results are negative, patient likely has a sprain / strain. Recommend rest/activity modification, ice/heat to the area, and elevation of the extremity. Continue with acetaminophen/ibuprofen for pain management as long as patient has no medical contraindications. Patient verbalized understanding and is agreeable with the plan. Orders: Orders XR hip RT min 2V Today Z96.641 - Presence of right artificial hip joint XR femur RT 2V Today Z96.641 - Presence of right artificial hip joint Coding Level of Care Code Est Pt Level 3 (93856) Diagnoses Status post total replacement of right hip Z96.641 Right hip pain M25.551
== END 2023-01-12 12:56 | disposition home or self-care (01) ==
PROVIDERS: PCP Family Medicine; Visit Provider Physician Assistant Medical
DX: Z96.641 Presence of right artificial hip joint (principal); M25.551 Pain in right hip
CPT/HCPCS: 99213

== ENCOUNTER 2023-01-12 12:37 | Outpatient (REF) | payer MEDICARE, SELFPAY | END 2023-01-12 12:38 | disposition home or self-care (01) | LOC: HO.HMGCX 12:37 | PROVIDERS: PCP Family Medicine; Visit Provider Physician Assistant Medical | DX: Z96.641 Presence of right artificial hip joint (principal) | CPT/HCPCS: 73502; 73552 ==

== ENCOUNTER 2023-01-19 10:32 | Outpatient (REF) | payer MEDICARE, SELFPAY ==
--- NOTE | ~2023-01-19 | XR_ITS ---
EXAMINATION: XR PELVIS CLINICAL INFORMATION: Pain in unspecified hip COMPARISON: Right femur, right hip 01/12/2023. X-ray pelvis 10/24/2022. TECHNIQUE: 2 AP views of the pelvis. FINDINGS: Status post right total hip arthroplasty. Hardware appears intact. The femoral head component articulates with the acetabular component. Mild degenerative changes in the left hip. XR/XR pelvis 1-2V IMPRESSION: 1. Right total hip arthroplasty. Hardware appears intact. 2. Mild degenerative changes left hip. Additional imaging with CT scan or MRI should be considered for better visualization as these modalities are much more sensitive for detection of fracture or other underlying pathology.
== END 2023-01-19 10:33 | disposition home or self-care (01) ==
LOC: HO.HOSX 10:32
PROVIDERS: PCP Family Medicine; Visit Provider Orthopaedic Surgery
DX: Z47.1 Aftercare following joint replacement surgery (principal); Z96.641 Presence of right artificial hip joint
CPT/HCPCS: 72170; 99212

== ENCOUNTER 2023-01-19 10:32 | Outpatient (AMB) | payer MEDICARE, SELFPAY ==
--- NOTE | 2023-01-19 10:43 | MHC.OFFVIS ---
Intake Intake Visit Reasons: PO-RT NINA 10/24/22 Intake Note: Campbell is a 77 year old male who presents today for a post operative appointment s/p Right NINA on 10/24/22. Patient reports recent fall on 01/10/23, his was falling so he went to catch her when he fell himself. Patient reports that within the last few weeks the riht hip has been feeling better. Allergies turmeric Allergy (Intermediate, Verified 01/12/23 12:22) hives HPI PO-RT NINA 10/24/22 HPI Details Campbell is a 77 year old man ~3 months S/P right NINA. He reports some increased hip pain after a fall on 01/10/23, but he says his hip has been feeling better each day. He denies any groin pain and is happy with the results of his surgery. He is able to walk comfortably without pain. [facility] Medical History BPH (benign prostatic hyperplasia) Mood disorder Hyperlipemia Osteoarthritis Osteoarthritis of right hip Pacemaker Complete heart block Surgical History H/O colonoscopy Hx of hernia repair History of bunionectomy History of permanent cardiac pacemaker placement (~11/2019) Family History Father Emphysema lung Mother No problems noted. 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 Review of Systems Const All systems reviewed & are unremarkable except as noted in HPI and below Physical Exam Const General: no acute distress, alert and awake Orientation/consciousness: patient oriented x3 HEENT Head: Yes normocephalic and Yes atraumatic Eyes EOM: EOMs intact bilaterally Resp Effort & Inspection: normal respiratory effort and able to speak in complete sentences Cardio Jugular venous distension: no JVD Skin General skin exam: turgor normal Rashes: no rashes Neuro General: patient oriented x3 Extrem Other: Right Hip: Well-healed incision No groin pain with hip ROM Normal gait Walking comfortably Psych Appearance: grossly normal Affect: normal affect Attitude: cooperative Results Reviewed Results Reviewed: I personally reviewed relevant radiographs. Right total hip arthroplasty in expected post operative position with no hardware complications or evidence of loosening Assessment & Plan Assessment & Plan (1) Status post total replacement of right hip: Comment: 10/24/2022 NE Code(s): Z96.641 - Presence of right artificial hip joint Plan: This is a 77 year old man S/P right NINA, DOS: 10/24/22. His hip pain S/P fall on 01/10/23 has been improving with rest and he denies any limitations. I recommend he continue activity as tolerated, with a focus on strengthening. He can follow up 6-9 mo. Plan Scribed for Paulo Sanders MD by Elijah Evans, medical translator, on 01/19/23 at 11:30 AM, EST. Orders: Orders XR pelvis 1-2V 01/19/23 M25.559 - Pain in unspecified hip Coding Level of Care Code Global (78434) Diagnoses Status post total replacement of right hip Z96.641
== END 2023-01-19 12:16 | disposition home or self-care (01) ==
PROVIDERS: PCP Family Medicine; Visit Provider Orthopaedic Surgery
DX: Z96.641 Presence of right artificial hip joint (principal)
CPT/HCPCS: 99024

== ENCOUNTER → 2023-04-09 23:59 | Outpatient (BNV) | payer MEDICARE, SELFPAY ==
--- NOTE | 2023-04-10 14:58 | A.OFFVIS_ITS ---
Intake Intake Visit Reasons: Remote Device Check- Medtronic Allergies turmeric Allergy (Intermediate, Verified 01/12/23 12:22) hives [facility] Medical History BPH (benign prostatic hyperplasia) Mood disorder Hyperlipemia Osteoarthritis Osteoarthritis of right hip Pacemaker Complete heart block Surgical History H/O colonoscopy Hx of hernia repair History of bunionectomy History of permanent cardiac pacemaker placement (~11/2019) Family History Father Emphysema lung Mother No problems noted. 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 Pacemaker function is adequate. Patient ventricularly pacer dependent [id number] Cardiac Device Interrogation, pacemaker Procedure code (CPT) selection complete Assessment & Plan Assessment & Plan (1) Pacemaker: Comment: 11/2019 Code(s): Z95.0 - Presence of cardiac pacemaker Plan: See above Coding Level of Care Code Procedure Only Diagnoses Pacemaker Z95.0 CPT Codes Cardiac Device Check - Cardiac Device 12: [id number] Cardiac Device Interrogation, pacemaker ([id number])
== END ==
PROVIDERS: PCP Family Medicine; Visit Provider Internal Medicine Cardiovascular Disease
DX: I44.2 Atrioventricular block, complete (principal); Z95.0 Presence of cardiac pacemaker
CPT/HCPCS: 93294

== ENCOUNTER → 2023-07-10 23:59 | Outpatient (BNV) | payer MEDICARE, SELFPAY ==
--- NOTE | 2023-07-12 14:37 | MHC.OFFVIS ---
Intake Intake Visit Reasons: Remote device check- Medtronic Allergies turmeric Allergy (Intermediate, Verified 01/12/23 12:22) hives [facility] Medical History BPH (benign prostatic hyperplasia) Mood disorder Hyperlipemia Osteoarthritis Osteoarthritis of right hip Pacemaker Complete heart block Surgical History H/O colonoscopy Hx of hernia repair History of bunionectomy History of permanent cardiac pacemaker placement (~11/2019) Family History Father Emphysema lung Mother No problems noted. 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 Pacemaker function is adequate. Ventricularly pacer dependent. [id number] Cardiac Device Interrogation, pacemaker Procedure code (CPT) selection complete Assessment & Plan Assessment & Plan (1) Pacemaker: Comment: 11/2019 Code(s): Z95.0 - Presence of cardiac pacemaker Plan: See above Coding Level of Care Code Procedure Only Diagnoses Pacemaker Z95.0 CPT Codes Cardiac Device Check - Cardiac Device 12: [id number] Cardiac Device Interrogation, pacemaker ([id number])
== END ==
PROVIDERS: PCP Family Medicine; Visit Provider Internal Medicine Cardiovascular Disease
DX: Z45.018 Encounter for adjustment and management of other part of cardiac pacemaker (principal)
CPT/HCPCS: 93294

== ENCOUNTER 2023-10-08 07:36 | Outpatient (REF) | payer MEDICARE, SELFPAY ==
--- NOTE | ~2023-10-08 | XR_ITS ---
EXAMINATION: XR SHOULDER, RIGHT CLINICAL INFORMATION: Reason for Exam M25.519 - Pain in unspecified shoulder COMPARISON: Shoulder radiographs 04/17/2013 TECHNIQUE: Three views of the shoulder. FINDINGS: No acute fracture or dislocation. Mild osteoarthritis of the shoulder with subchondral cystic change in the humeral head small glenohumeral and acromioclavicular osteophytes. Partially imaged left chest wall cardiac pacer. XR/XR shoulder RT min 2V IMPRESSION: * Mild osteoarthritis of the shoulder.
== END 2023-10-08 07:37 | disposition home or self-care (01) ==
LOC: HO.HOSX 07:36
PROVIDERS: Visit Provider Orthopaedic Surgery
DX: M19.011 Primary osteoarthritis, right shoulder (principal)
CPT/HCPCS: 73030; 99212

== ENCOUNTER 2023-10-08 13:47 | Outpatient (AMB) | payer MEDICARE, SELFPAY ==
--- NOTE | 2023-10-08 14:11 | MHC.OFFVIS ---
Intake Visit Reasons: New prob/ Right shoulder pain Intake Note: Campbell is a 78 year old male who presents today for a new problem with complaints of right shoulder pain. Allergies turmeric Allergy (Intermediate, Verified 01/12/23 12:22) hives HPI HPI New prob/ Right shoulder pain : Details: Campbell is a 78 active M with right shoulder pain,. He describes pain superiorly over the ac joint that is present with reaching, lifting and overhead activity. It is not keeping him from sleeping. He denies injury. He states it may be improvving slightly. [facility] Medical History BPH (benign prostatic hyperplasia) Mood disorder Hyperlipemia Osteoarthritis Osteoarthritis of right hip Pacemaker Complete heart block Surgical History H/O colonoscopy Hx of hernia repair History of bunionectomy History of permanent cardiac pacemaker placement (~11/2019) Family History Father Emphysema lung Mother No problems noted. 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 Physical Exam Const General: cooperative, healthy appearing, no acute distress and well groomed Orientation/consciousness: oriented to person and oriented to place HEENT Head: Yes normal to inspection, Yes normocephalic and Yes atraumatic Eyes General: appearance normal, both eyes and all related structures Alignment and Position: alignment normal Conjunctivae: conjunctivae normal EOM: EOMs intact bilaterally Neck Neck: Yes normal visual inspection and Yes trachea midline Resp Other: No rerpiratory distress Effort & Inspection: normal respiratory effort and able to speak in complete sentences Cardio Other: Palpable radial pulse with no appreciable rythmic abnormalities GI Other: No abdominal distension Back/Spine/Pelvis Cervical Spine: normal cervical lordosis and cervical ROM normal Skin General skin exam: no rashes or lesions noted Neuro General: oriented to person, oriented to place and gait normal Extrem Other: Shoulder: Visual inspection: nl TTP: ACJ ROM: 35/90/150/l5 Hawkin's: + Neer: + Empty can: - Lag: - Lift off: - XBA: + Results Reviewed Results Reviewed: I personally reviewed relevant radiographs. Mild GH OA, moderate AC joint OA Assessment & Plan Assessment & Plan (1) Arthritis of right acromioclavicular joint: Code(s): M19.011 - Primary osteoarthritis, right shoulder Category: Medical Plan: AC joint OA. He is tolerating the pain and I reviewed the treatment options. We elected to treat this conservatively and we discussed activity modification and we will see if this improves. It has been improving and if thing worsen we will reconsider injections/PT/NSAIDs. Orders: Orders XR shoulder RT min 2V 10/08/23 M25.519 - Pain in unspecified shoulder Coding Level of Care Code Est Pt Level 3 (89210) Diagnoses Arthritis of right acromioclavicular joint M19.011
== END 2023-10-08 15:11 | disposition home or self-care (01) ==
PROVIDERS: PCP Family Medicine; Visit Provider Orthopaedic Surgery
DX: M19.011 Primary osteoarthritis, right shoulder (principal)
CPT/HCPCS: 99213

== ENCOUNTER → 2023-10-11 23:59 | Outpatient (BNV) | payer MEDICARE, SELFPAY ==
--- NOTE | 2023-10-15 14:27 | A.OFFVIS_ITS ---
Intake Visit Reasons: Remote device check- Medtronic Allergies turmeric Allergy (Intermediate, Verified 01/12/23 12:22) hives PFSH Medical History BPH (benign prostatic hyperplasia) Mood disorder Hyperlipemia Osteoarthritis Osteoarthritis of right hip Pacemaker Complete heart block Surgical History H/O colonoscopy Hx of hernia repair History of bunionectomy History of permanent cardiac pacemaker placement (~11/2019) Family History Father Emphysema lung Mother No problems noted. 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 Pacemaker function is adequate. Ventricular pacing greater than 90% [id number] Cardiac Device Interrogation, pacemaker Procedure code (CPT) selection complete Assessment & Plan Assessment & Plan (1) Pacemaker: Comment: 11/2019 Code(s): Z95.0 - Presence of cardiac pacemaker Category: Medical Plan: See above Coding Level of Care Code Procedure Only Diagnoses Pacemaker Z95.0 CPT Codes Cardiac Device Check - Cardiac Device 12: [id number] Cardiac Device Interrogation, pacemaker ([id number])
== END ==
PROVIDERS: PCP Family Medicine; Visit Provider Internal Medicine Cardiovascular Disease
DX: Z45.018 Encounter for adjustment and management of other part of cardiac pacemaker (principal)
CPT/HCPCS: 93294

== ENCOUNTER 2023-12-20 09:07 | Outpatient (AMB) | payer MEDICARE, SELFPAY ==
--- NOTE | 2023-12-20 09:15 | A.OFFVIS_ITS ---
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 He has no new cardiac symptoms at current time. Denies any symptoms of prolonged palpitation irregular heartbeat. Denies any exertional chest pain or shortness of breath. No orthopnea, PND, leg edema. No lightheadedness, syncope. Takes all his medications. Comes for pacemaker evaluation. [facility] Medical History BPH (benign prostatic hyperplasia) Mood disorder Hyperlipemia Osteoarthritis Osteoarthritis of right hip Pacemaker Complete heart block Surgical History H/O colonoscopy Hx of hernia repair History of bunionectomy History of permanent cardiac pacemaker placement (~11/2019) Family History Father Emphysema lung Mother No problems noted. 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 Review of Systems Const Denies weakness ENT Denies dizziness Card Denies chest pain, Denies chest pain with activity, Denies syncope, Denies rapid heart rate, Denies pedal edema, Denies edema, Denies leg edema, Denies lightheadedness, Denies palpitations, Denies dyspnea, Denies dyspnea on exertion and Denies orthopnea Resp Denies cough, Denies dyspnea and Denies dyspnea on exertion GI Denies hematochezia and Denies change in stool character Musc Denies abnormal gait, Denies muscle cramps, Denies muscle weakness, Denies numbness, Denies radiating pain into limb and Denies tingling Neuro Denies abnormal gait, Denies dizziness, Denies syncope, Denies numbness, Denies tingling and Denies weakness Endo Denies palpitations Physical Exam Vital Signs: Last Vital Signs Pulse 75 12/20/23 09:16 BP 138/70 12/20/23 09:16 BMI result Body Mass Index 29.5 Const General: cooperative, comfortable, no acute distress, alert, awake and well groomed Nutritional Appearance: average body habitus Orientation/consciousness: patient oriented x3 Limitations: no limitations Neck Neck: Yes trachea midline, Yes supple and Yes no JVD Resp Effort & Inspection: normal respiratory effort Auscultation: clear to auscultation bilaterally Cardio Jugular venous distension: no JVD Palpation: normal PMI Rate: regular rate Rhythm: regular rhythm Heart sounds: S1 normal heart sound present, S2 normal heart sound present, no click, no gallops, no murmurs and no rubs GI Auscultation: normal bowel sounds Neuro General: patient oriented x3 and no focal motor deficits Extrem General: Yes no clubbing, cyanosis or edema Psych Appearance: grossly normal Office Procedures Cardiac Device Check Cardiac Device Check Details: Dual-chamber Medtronic pacemaker in place. Programmed in DDD at 60 beats per minute. Ventricular pacing 100% of the time. Atrial pacing 8.5% of time. Atrial sensing is adequate. Ventricular sensing could not be checked. Atrial ventricular pacing thresholds adequate. Atrial ventricular pacing lead impedance is stable. Two episodes of atrial fibrillation noted each lasting about 3 minutes. Multiple episodes of nonsustained ventricular tachycardia noted. Battery life is at 8.2 years [id number] Cardiac Device Check, pacemaker dual lead Procedure code (CPT) selection complete EKG Details: EKG shows normal sinus rhythm with ventricularly paced rhythm [id number], Complete Assessment & Plan Assessment & Plan (1) Nonsustained ventricular tachycardia: Code(s): I47.29 - Other ventricular tachycardia Category: Medical Plan: Noted multiple episode of nonsustained ventricular tachycardia which is concerning. Will check for infiltrative disorder such as sarcoidosis, suggest cardiac MRI in near future. Also suggest worsening LV ejection fraction given constant RV pacing. Will obtain an echocardiogram to assess LV systolic and diastolic function. Meanwhile will start him on Toprol-XL 50 mg daily. Further treatment based on the finding of imaging test. Avoidance of stimulants was discussed advised to call me with any new symptoms. (2) Pacemaker: Comment: 11/2019 Code(s): Z95.0 - Presence of cardiac pacemaker Category: Medical Plan: Cardiac pacemaker in-situ for complete heart block with no obvious structural pathology was identified at the time of placement. Will check with cardiac MRI at this point time to rule out any infiltrative disorder. He is also having episodes of carpal tunnel syndrome and other infiltrative disorder such as amyloidosis this needs to be ruled out. Will continue monitor remotely every 3 months. (3) Paroxysmal atrial fibrillation: Code(s): I48.0 - Paroxysmal atrial fibrillation Category: Medical Plan: Newly detected episodes of atrial fibrillation which are very short lasting. No symptoms related to it. Start metoprolol. Does not qualify for oral anticoagulation therapy as of yet. Will continue monitor by pacer telemetry. Will follow up in the clinic in 6 months time, sooner p.r.n.. Thank you for allowing me to partake in his care Orders: Orders CA echo transthoracic complete Today I47.29 - Other ventricular tachycardia MR cardiac morph fnct w con 1 Week I47.29 - Other ventricular tachycardia Medications: New metoprolol succinate ER (Toprol XL) 50 mg PO DAILY 30 tabs 5RF I47.29 - Other ventricular tachycardia Coding Level of Care Code Est Pt Level 4 (83348) Diagnoses Nonsustained ventricular tachycardia I47.29 Pacemaker Z95.0 Paroxysmal atrial fibrillation I48.0 CPT Codes Cardiac Device Check - Cardiac Device 2: [id number] Cardiac Device Check, pac emaker dual lead ([id number]) EKG - CPT: 57116-Copcdcrtqzqvxiorq, Complete ([id number])
[2023-12-20 09:16] VITALS: BP 138/70; PULSE 75; BMI 29.5
== END 2023-12-20 09:38 | disposition home or self-care (01) ==
PROVIDERS: PCP Family Medicine; Visit Provider Internal Medicine Cardiovascular Disease
DX: I47.29 Other ventricular tachycardia (principal); Z95.0 Presence of cardiac pacemaker; I48.0 Paroxysmal atrial fibrillation
CPT/HCPCS: 93010; 93280; 99214

== ENCOUNTER → 2023-12-20 09:07 | Outpatient (BNVA) | payer MEDICARE, SELFPAY | PROVIDERS: PCP Family Medicine; Visit Provider Internal Medicine Cardiovascular Disease | DX: Z45.018 Encounter for adjustment and management of other part of cardiac pacemaker (principal); I48.0 Paroxysmal atrial fibrillation; I47.29 Other ventricular tachycardia; R94.31 Abnormal electrocardiogram [ECG] [EKG] | CPT/HCPCS: 93005; 93280; 99212 ==

== ENCOUNTER → 2024-01-12 23:59 | Outpatient (BNV) | payer MEDICARE, SELFPAY ==
--- NOTE | 2024-01-15 12:44 | MHC.OFFVIS ---
Intake Visit Reasons: Remote device check- Medtronic Allergies turmeric Allergy (Intermediate, Verified 01/12/23 12:22) hives PFSH Medical History BPH (benign prostatic hyperplasia) Mood disorder Hyperlipemia Osteoarthritis Osteoarthritis of right hip Pacemaker Complete heart block Surgical History H/O colonoscopy Hx of hernia repair History of bunionectomy History of permanent cardiac pacemaker placement (~11/2019) Family History Father Emphysema lung Mother No problems noted. 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 Pacemaker function is adequate [id number] Cardiac Device Interrogation, pacemaker Procedure code (CPT) selection complete Assessment & Plan Assessment & Plan (1) Pacemaker: Comment: 11/2019 Code(s): Z95.0 - Presence of cardiac pacemaker Category: Medical Plan: . Bi Coding Level of Care Code Procedure Only Diagnoses Pacemaker Z95.0 CPT Codes Cardiac Device Check - Cardiac Device 12: [id number] Cardiac Device Interrogation, pacemaker ([id number])
== END ==
PROVIDERS: PCP Family Medicine; Visit Provider Internal Medicine Cardiovascular Disease
DX: Z45.018 Encounter for adjustment and management of other part of cardiac pacemaker (principal)
CPT/HCPCS: 93294

== ENCOUNTER 2024-02-04 10:00 | Outpatient (RCR) | payer MEDICARE, SELFPAY | END 2024-02-04 10:24 | disposition home or self-care (01) | LOC: HO.OT 10:00 | PROVIDERS: PCP Family Medicine; Visit Provider Family Medicine | DX: G56.03 Carpal tunnel syndrome, bilateral upper limbs (principal) | CPT/HCPCS: 97110; 97140; 97166 ==

== ENCOUNTER → 2024-02-06 09:40 | Outpatient (REF) | payer MEDICARE, SELFPAY ==
--- NOTE | 2024-02-06 09:42 | CA_ITS ---
Transthoracic Echocardiogram Patient (Last, First, Middle): Campbell Luna E Gender: Male Date of : 1945 Age: 78 Procedure Date: 02/06/2024 Procedure Type: Transthoracic Echocardiogram Location: OP Height: 165.1 cm Weight: 76.2 kg BSA: 1.84 m2 Heart Rate: bpm BP: 124 / 70 mmHg Needle Loom Setter: Referring MD: Red Barron MD Symptoms: I47.29 - Other ventricular tachycardia Study Quality: Good ECG Rhythm: Sinus Conclusions: - The left ventricular systolic function is normal. The calculated ejection fraction is 56% by biplane method. - No obvious valvular pathology seen on this study. Findings Left Ventricle Normal left ventricular cavity size. There is mildly increased left ventricular wall thickness. The left ventricular systolic function is normal. The calculated ejection fraction is 56% by biplane method. There is no evidence of regional wall motion abnormalities. Diastolic function is normal for age. Right Ventricle Normal right ventricular cavity size. There is low normal right ventricular systolic function. There is an ICD wire seen in the right ventricle. Atria Both atria are normal in size. Aortic Valve There is a normal trileaflet aortic valve. There is no aortic valve stenosis. There is no aortic valve regurgitation. Mitral Valve There is mild mitral annular calcification. There is no mitral valve regurgitation. There is no mitral valve stenosis. Pulmonic Valve The pulmonic valve is likely normal. Tricuspid Valve There is mild tricuspid valve regurgitation. There is no evidence of pulmonary hypertension. Great Vessels The asc aorta is normal in size. Venous The inferior vena cava is normal in size and collapses greater than 50% with inspiration. Pericardium/Pleural There is no evidence of pericardial effusion. Prior Study Comparison No significant change compared to prior study dated: 12/12/2022. Recommendations, Care & Conclusions No obvious valvular pathology seen on this study. Measurements 2D Linear Measurements IVSd: 1.22 0.6-0.9/0.6-1.0 cm LVIDd: 4.38 3.9-5.3/4.2-5.9 cm LVIDd Index: 2.38 2.4-3.2/2.2-3.1 cm/m2 LVIDs: 2.51 2.0-3.6 cm LVPWd: 1.23 0.7-1.1 cm Ao Root: 3.10 2.1-3.5 cm LA Diam: 3.20 2.7-3.8/3.0-4.0 cm LAIDs Index: 1.74 1.5-2.3 cm/m2 LV Mass: 243.97 67-162/88-224 g LV Mass Index: 132.59 43-95/49-115 g/m2 LVOT Diam: 2.20 3.0+(-)1.3 cm 2D Systolic Function EF 4C: 60.50 >55% EF 2C: 56.60 >55% EF BiP: 55.80 >55% Mitral Valve MV Pk E: 0.75 MV PK A: 1.10 MV Decel Time: 251.00 E/A: 0.70 E'Lateral: 6.64 E'Medial: 5.87 E/E' Med: 12.80 E/E' Lat: 11.30 PHT: 73.00 MVA PHT: 3.01 Decel [place]: 3.00 Aortic Valve AoV Pk Regino: 1.12 AoV Pk Grad: 5.00 LVOT LVOT Pk Regino: 0.90 LVOT Mn Regino: 0.57 LVOT VTI: 0.22 LVOT Pk Grad: 3.00 LVOT Mn Grad: 2.00 LVOT Diam: 2.20 LVOT Area: 3.80 Diastolic Function MV Pk E: 0.75 MV Pk A: 1.10 E/A: 0.70 E'Medial: 5.87 E/E' Med: 12.80 E' Laterial: 6.64 E/E' Lat: 11.30 Right Ventricle TAPSE (mm): 23.00 TVS' Regino: 9.00 Tricuspid Valve TR Pk Regino: 2.57 TR Pk Grad: 26.00 RA Press: 3.00 RVSP: 29.00 Great Vessels Aorta Ao Root-2D: 3.10 2.0-3.7 cm Ao Asc: 3.00 2.1-3.4 cm Pulmonary Valve PV Pk Regino: 0.88 Peak PV Grad: 3.00 Updated in Other Vendor System with Status of Final Vince Martinez MD electronically signed on 02/09/2024 1:26:50 PM with status of Final
== END ==
LOC: HO.CARD 09:40
PROVIDERS: PCP Family Medicine; Visit Provider Internal Medicine Cardiovascular Disease
DX: I47.29 Other ventricular tachycardia (principal)
CPT/HCPCS: 93306

== ENCOUNTER → 2024-02-06 09:42 | Outpatient (BNV) | payer MEDICARE, SELFPAY | PROVIDERS: PCP Family Medicine; Visit Provider Internal Medicine | DX: I36.1 Nonrheumatic tricuspid (valve) insufficiency (principal) | CPT/HCPCS: 93306 ==

== ENCOUNTER 2024-02-19 10:07 | Outpatient (AMB) | payer MEDICARE, SELFPAY ==
[2024-02-19 10:09] VITALS: BMI 29.3
--- NOTE | 2024-02-19 10:09 | MHC.OFFVIS ---
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 Patient reports numbness and tingling that occurs daily, constant, making it difficult to admission nurse coordinator, squeeze, and open and close lids. Denies finger locking. Has tried braces at night and OT. Denies any prior injuries or surgeries to the hands. EMG done at [facility] [place] [facility], 10/03/23, awaiting report. 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 He complains of bilateral hand numbness right worse than left. He says he has some dense numbness to the tips of the right thumb index and middle fingers were symptoms are worse with activities and at night. On the left side he said his symptoms are more intermittent. He reports that he recently had an nerve conduction study done at [facility], [place]. [facility] Medical History BPH (benign prostatic hyperplasia) Mood disorder Hyperlipemia Osteoarthritis Osteoarthritis of right hip Pacemaker Complete heart block Surgical History H/O colonoscopy Hx of hernia repair History of bunionectomy History of permanent cardiac pacemaker placement (~11/2019) Family History Father Emphysema lung Mother No problems noted. 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 Physical Exam Vital Signs: BMI result Body Mass Index 29.3 Const General: cooperative, healthy appearing and no acute distress Orientation/consciousness: oriented to person and oriented to place HEENT Head: Yes normocephalic and Yes atraumatic Eyes EOM: EOMs intact bilaterally Resp Effort & Inspection: normal respiratory effort and able to speak in complete sentences Cardio Jugular venous distension: no JVD Skin General skin exam: turgor normal Rashes: no rashes Neuro General: oriented to person and oriented to place Extrem Other: Evaluation of bilateral Upper Extremity: Neuro: Median, ulnar, radial nerves motor and sensory intact except for some dense numbness to the tips of the right thumb index and middle fingers. No intrinsic or thenar wasting. Good finger cross.. Vascular: Cap refill brisk. ROM: Can bring fingers closed to a fist and back out to extension. Can oppose thumb to fingertips Smooth wrist ROM Skin: No lacerations or abrasions. General: No eccymosis. No erythema or evidence of infection. EMG nerve conduction study: Impression: Abnormal study. Findings are consistent with bilateral moderate median neuropathies at the wrists, correlated with carpal tunnel syndrome. Incidentally there was evidence of a median to ulnar anastomosis which is a normal anatomic variant. No evidence of other focal neuropathy, polyneuropathy, radiculopathy, plexopathy or myelopathic process. This study was done at [facility], [place]. Pablo Doan MD 10/03/2023 Psych Appearance: grossly normal Affect: normal affect Attitude: cooperative Assessment & Plan Assessment & Plan (1) Carpal tunnel syndrome of right wrist: Code(s): G56.01 - Carpal tunnel syndrome, right upper limb Category: Medical (2) Carpal tunnel syndrome of left wrist: Code(s): G56.02 - Carpal tunnel syndrome, left upper limb Category: Medical Plan Assessment and plan: 1. Right carpal tunnel syndrome, moderate With dense numbness to the tips of the thumb index middle fingers This is his most symptomatic complaint. 2. Left carpal tunnel syndrome, moderate Symptoms intermittent but daily I educated him about these conditions. We discussed operative and non operative treatment options and I am recommending surgery. The risks and benefits of operative treatment were discussed with the patient and the patient wishes to proceed with surgery. These risks include, but are not limited to risk of damage to blood vessels, nerves, tendons, infection, recurrence, incomplete relief of preoperative symptoms, persistent pain, possible need for further surgery and the risks associated with regional blocks and anesthesia. The plan is to take the patient to the operating room sometime in the next few weeks for the following procedures: 1. Right carpal tunnel release, under local 2. [ ] All of the preoperative paperwork including the consent was filled out today. All the patient's questions were answered. The patient understands that they will be contacted by our wharf hand soon to schedule this procedure We can discuss treatment of his left carpal tunnel syndrome after he recovers from his right carpal tunnel release. He denies being on blood thinners or having diabetes. He does have a pacemaker. Coding Level of Care Code New Pt Level 4 (59523) Diagnoses Carpal tunnel syndrome of right wrist G56.01 Carpal tunnel syndrome of left wrist G56.02
== END 2024-02-19 11:29 | disposition home or self-care (01) ==
PROVIDERS: PCP Family Medicine; Visit Provider Orthopaedic Surgery
DX: G56.03 Carpal tunnel syndrome, bilateral upper limbs (principal)
CPT/HCPCS: 99204

== ENCOUNTER → 2024-02-19 10:07 | Outpatient (BNVA) | payer MEDICARE, SELFPAY | PROVIDERS: PCP Family Medicine; Visit Provider Orthopaedic Surgery | DX: G56.03 Carpal tunnel syndrome, bilateral upper limbs (principal) | CPT/HCPCS: 99202 ==

== ENCOUNTER 2024-03-25 10:34 | Outpatient (REF) | payer MEDICARE, SELFPAY ==
--- NOTE | ~2024-03-25 | XR_ITS ---
EXAMINATION: XR CHEST CLINICAL INFORMATION: I48.0 - Paroxysmal atrial fibrillation COMPARISON: Chest radiographs of 11/27/2019, 11/25/2019 TECHNIQUE: Frontal view of the chest was obtained. FINDINGS: Left subclavian approach pacer redemonstrated with leads overlying right atrium and right ventricle. Heart size within normal limits. There is no gross pneumothorax. No significant pleural effusion. Mild increased prominence of the perihilar vasculature/interstitial markings with mild peribronchial thickening. Redemonstration of small nodule overlying right mid lung. XR/XR chest 1V IMPRESSION: Mild increased prominence of the perihilar vasculature/interstitial markings with mild peribronchial thickening. This study was presented today to March 25, 2024 for interpretation. Stat results provided at this time as requested by referring provider. Electronically signed by: Molly Antoine MD 03/25/2024 12:20 PM CHANTELL HUYNH
== END 2024-03-25 10:35 | disposition home or self-care (01) ==
LOC: HO.XRAY 10:34
PROVIDERS: PCP Family Medicine; Visit Provider Internal Medicine Cardiovascular Disease
DX: I48.0 Paroxysmal atrial fibrillation (principal)
CPT/HCPCS: 71045

== ENCOUNTER 2024-03-28 10:41 | Outpatient (REF) | payer MEDICARE, SELFPAY ==
[2024-03-28 11:35] LABS: Anion Gap 10 (12-20); Blood Urea Nitrogen 14 mg/dL (9-16); Calcium 9.3 mg/dL (8.4-10.2); Carbon Dioxide 30 mmol/L (22-29); Chloride 105 mmol/L (96-108); Estimated Glomerular Filt Rate > 60; Glucose Random 96 mg/dL (60-115); Potassium 4.2 mmol/L (3.3-5.1); Sodium 141 mmol/L (135-145)
== END 2024-03-28 10:42 | disposition home or self-care (01) ==
LOC: HO.LAB 10:41
PROVIDERS: PCP Family Medicine; Visit Provider Internal Medicine Cardiovascular Disease
DX: I48.0 Paroxysmal atrial fibrillation (principal); I44.2 Atrioventricular block, complete
CPT/HCPCS: 36415; 80048

== ENCOUNTER → 2024-04-14 23:59 | Outpatient (BNV) | payer MEDICARE, SELFPAY ==
--- NOTE | 2024-04-21 16:25 | A.OFFVIS_ITS ---
Intake Visit Reasons: Remote device check- Medtronic Allergies turmeric Allergy (Intermediate, Verified 02/19/24 10:09) hives PFSH Medical History BPH (benign prostatic hyperplasia) Mood disorder Hyperlipemia Osteoarthritis Osteoarthritis of right hip Pacemaker Complete heart block Surgical History H/O colonoscopy Hx of hernia repair History of bunionectomy History of permanent cardiac pacemaker placement (~11/2019) Family History Father Emphysema lung Mother No problems noted. 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 Pacemaker function is adequate [id number] Cardiac Device Interrogation, pacemaker Procedure code (CPT) selection complete Assessment & Plan Assessment & Plan (1) Pacemaker: Comment: 11/2019 Code(s): Z95.0 - Presence of cardiac pacemaker Category: Medical Plan: See above Coding Level of Care Code Procedure Only Diagnoses Pacemaker Z95.0 CPT Codes Cardiac Device Check - Cardiac Device 12: [id number] Cardiac Device Interrogation, pacemaker ([id number])
== END ==
PROVIDERS: PCP Family Medicine; Visit Provider Internal Medicine Cardiovascular Disease
DX: Z45.018 Encounter for adjustment and management of other part of cardiac pacemaker (principal)
CPT/HCPCS: 93294

== ENCOUNTER 2024-04-21 14:11 | Day surgery (SDC) | payer MEDICARE, SELFPAY ==
[2024-04-21 14:27] VITALS: BMI 27.5
[2024-04-21 14:32] VITALS: BP 153/79; PULSE 60; RESP 16; TEMP 36.6; O2SAT 98
--- NOTE | 2024-04-21 17:16 | MHC.SHP ---
Pre-Procedural Eval Section A - 24 Hr Update-Section A only Date of Service: 04/21/24 The patient is an INPATIENT: No Changes since office visit: No Cold of Flu in the past 2 weeks, No New Medical Problems, No Changes in Medication and No Patient answered all questions Section B - Complete if H&P > 30 days Chief Complaint: Carpal tunnel syndrome, right upper limb Allergies: Allergies Allergy/AdvReac Type Severity Reaction Status Date / Time turmeric Allergy Intermediate hives Verified 02/19/24 10:09 Plan Diagnosis/Plan: Unchanged I have reviewed the history and physical and performed a pertinent physical examination on my patient. No changes have occurred unless specified. Time Spent With Patient Time: Total time managing care of this patient today ____ minutes.
--- NOTE | 2024-04-21 17:16 | W.PM.OPN ---
Operative Note Operative Note Date of Service: 04/21/24 Narrative: Preop diagnosis: 1. Right Carpal tunnel syndrome Postop diagnosis: same Procedure: 1. Right Carpal tunnel release Surgeon: Sharon Ko MD Food Beverage Supervisor: None Anesthesia: local block using 1% lidocaine with epinephrine Findings: Thickened transverse carpal ligament. EBL: Less than 5 mL Specimens: None Complications: None Disposition: Brought to recovery room in stable condition Plan: Follow-up for 10-14 days for wound check and suture removal Indications: The patient is 79 years old, with right carpal tunnel syndrome that has been unresponsive to nonoperative management. The risks and benefits of operative treatment including but not limited to risk of damage to blood vessels, nerves, tendons, infection, persistent pain, persistent symptoms, or possible need for additional surgery were discussed with the patient and the patient wishes to proceed with surgery. Procedure: Once consent was obtained a local block was performed using a combination of 1% lidocaine with epinephrine. The patient was then brought back to the operating suite and placed on the operative table in supine position. The right upper extremity was prepped and draped in a standard surgical fashion. Once assured that we had a good block, a 2.0 cm longitudinal incision was made centered over the carpal tunnel. The incision was made through the skin to the subcutaneous tissues using a #15 blade. Dissection was made down to the level of the transverse carpal ligament with care being taken to protect the palmar cutaneous nerve. Once the transverse carpal ligament was clearly visualized, a longitudinal incision was made in the transverse carpal ligament 1st using a #15 blade, then using tenotomy scissors under direct visualization. Care was taken to look for and protect the motor branch of the median nerve when seen in this area. Once satisfied with our carpal tunnel release the wound was copiously irrigated with normal saline and hemostasis was obtained with a brief period of local pressure. The skin edges were reapproximated with some 5.0 nylon suture material and a sterile dressing was applied. The patient appears to have tolerated the procedure well and with no complications. All digits were well vascularized at the conclusion of the case.
[2024-04-21 17:45] VITALS: BP 154/86; PULSE 60; RESP 18; TEMP 37.3; O2SAT 97
== END 2024-04-21 18:05 | disposition home or self-care (01) ==
PROVIDERS: PCP Family Medicine; Visit Provider Orthopaedic Surgery
PROC: (CPT 64721; principal; 2024-04-21 16:10)
DX: G56.01 Carpal tunnel syndrome, right upper limb (principal); R20.0 Anesthesia of skin; R20.2 Paresthesia of skin; M16.11 Unilateral primary osteoarthritis, right hip; I44.2 Atrioventricular block, complete; Z95.0 Presence of cardiac pacemaker; E78.5 Hyperlipidemia, unspecified; F39 Unspecified mood [affective] disorder; Z98.890 Other specified postprocedural states; Z87.891 Personal history of nicotine dependence
CPT/HCPCS: 64721; J0171; J2003

== ENCOUNTER → 2024-04-21 14:11 | Outpatient (BNV) | payer MEDICARE, SELFPAY | PROVIDERS: PCP Family Medicine; Visit Provider Orthopaedic Surgery | DX: G56.01 Carpal tunnel syndrome, right upper limb (principal) | CPT/HCPCS: 64721 ==

== ENCOUNTER 2024-05-06 10:49 | Outpatient (AMB) | payer MEDICARE, SELFPAY ==
[2024-05-06 11:37] VITALS: BMI 27.5
--- NOTE | 2024-05-06 11:37 | A.OFFVIS_ITS ---
Vital Signs 05/06/24 11:37 Height 5 ft 5 in Weight 165 lb BMI 27.5 Intake Visit Reasons: PO RT CTR 04/21/24 AR Intake Note: Campbell is a 79 year old right hand dominant male who presents today post operatively s/p right carpal tunnel release DOS: 04/21/2024 w/ Dr Ko. Patient reports he is doing well, his numbness has improved in his finger except for his MF. Allergies turmeric Allergy (Intermediate, Verified 05/06/24 11:38) hives [facility] Medical History BPH (benign prostatic hyperplasia) Mood disorder Hyperlipemia Osteoarthritis Osteoarthritis of right hip Pacemaker Complete heart block Surgical History H/O colonoscopy Hx of hernia repair History of bunionectomy History of permanent cardiac pacemaker placement (~11/2019) Family History Father Emphysema lung Mother No problems noted. 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 Neuro: Normal sensation of the tips of all digits of the left hand at this time Vascular: Cap refill brisk Pain: No tenderness to palpation about the incision site No pain with range of motion of the left hand ROM: Patient is able to make a closed fist and extend all digits of the left hand fully and without difficulty Skin: No lacerations or abrasions. General: No ecchymosis, erythema, or evidence of infection. Psych: Appears grossly normal Affect normal Attitude cooperative Assessment & Plan Assessment & Plan (1) Carpal tunnel syndrome of left wrist: Code(s): G56.02 - Carpal tunnel syndrome, left upper limb Category: Medical (2) Carpal tunnel syndrome of right wrist: Code(s): G56.01 - Carpal tunnel syndrome, right upper limb Category: Medical Plan 1. Left carpal tunnel syndrome status post carpal tunnel release DOS 04/21/2024 Patient appears to be recovering well postoperatively Patient is educated about the typical recovery course At this time, patient was informed that because he is recovering so well, he will not require any further acute follow-up with us Patient is advised to call us if he has any complaints or concerns about the incision site Patient was amenable to this plan 2. Right carpal tunnel syndrome Symptoms intermittent, not daily, worse at night Patient states he would like to hold off on any surgical Intervention in the site at this time patient was advised that he should call us when he is ready to pursue operative intervention Patient was amenable to this plan Coding Level of Care Code Global (74442) Diagnoses Carpal tunnel syndrome of left wrist G56.02 Carpal tunnel syndrome of right wrist G56.01
== END 2024-05-06 11:54 | disposition home or self-care (01) ==
PROVIDERS: PCP Family Medicine
DX: G56.03 Carpal tunnel syndrome, bilateral upper limbs (principal)
CPT/HCPCS: 99024

== ENCOUNTER → 2024-05-06 10:49 | Outpatient (BNVA) | payer MEDICARE, SELFPAY | PROVIDERS: PCP Family Medicine | DX: G56.03 Carpal tunnel syndrome, bilateral upper limbs (principal) | CPT/HCPCS: 99212 ==

== ENCOUNTER 2024-06-25 08:20 | Outpatient (AMB) | payer MEDICARE, SELFPAY ==
[2024-06-25 08:40] VITALS: BP 120/80; BMI 28.6
--- NOTE | 2024-06-25 08:40 | MHC.OFFVIS ---
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 Required: No Allergies turmeric Allergy (Intermediate, Verified 05/06/24 11:38) hives Medication List - Last Reconciled 06/25/24 by Red Barron MD acetaminophen 650 mg (2 x 325 mg) PO Q6H PRN 30 days atorvastatin 10 mg PO BEDTIME cetirizine 5 mg PO DAILY PRN cholecalciferol (vitamin D3) 25 mcg PO DAILY coenzyme Q10 (Ultra CoQ10) 75 mg PO DAILY flaxseed oil 1,000 mg PO DAILY fluoxetine 10 mg PO DAILY gabapentin 400 mg PO BID metoprolol succinate ER 50 mg PO DAILY multivitamin 1 tab PO DAILY omega-3 fatty acids 1,000 mg PO DAILY saw palmetto 160 mg PO BID HPI Comments Details: Campbell comes for follow-up. He has been doing overall well from cardiac perspective. He notices some increased shortness of breath when he climbs a flight of stairs from the basement but this is not very life-limiting. Otherwise no significant complaints. Remote monitoring showed 1 episode of nonsustained VT that lasted for 8 seconds with 14 beats. He denies any lightheadedness, syncope. Denies any heart failure symptoms. Echocardiogram January showed preserved LV ejection fraction. Myocardial perfusion imaging in about couple of years ago was within normal limits [facility] Medical History BPH (benign prostatic hyperplasia) Mood disorder Hyperlipemia Osteoarthritis Osteoarthritis of right hip Pacemaker Complete heart block Surgical History H/O colonoscopy Hx of hernia repair History of bunionectomy History of permanent cardiac pacemaker placement (~11/2019) Family History Father Emphysema lung Mother No problems noted. 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 Review of Systems Const Denies chills, Denies fatigue, Denies fever(s), Denies frequent falls, Denies weakness, Denies weight gain and Denies weight loss ENT Denies dizziness Card Denies chest pain, Denies leg edema, Denies lightheadedness, Denies palpitations, Denies dyspnea, Denies dyspnea on exertion, Denies orthopnea and Denies other (loss of consciousness) Resp Denies cough, Denies dyspnea and Denies dyspnea on exertion GI Denies hematochezia and Denies change in stool character Musc Denies abnormal gait, Denies muscle weakness, Denies numbness, Denies radiating pain into limb and Denies tingling Neuro Denies abnormal gait, Denies dizziness, Denies frequent falls, Denies numbness, Denies tingling and Denies weakness Endo Denies fatigue and Denies palpitations Physical Exam Vital Signs: Last Vital Signs BP 120/80 06/25/24 08:40 BMI result Body Mass Index 28.6 Const General: cooperative, comfortable, no acute distress, alert, awake and well groomed Nutritional Appearance: average body habitus Orientation/consciousness: patient oriented x3 Limitations: no limitations Neck Neck: Yes trachea midline, Yes supple and Yes no JVD Resp Effort & Inspection: normal respiratory effort Auscultation: clear to auscultation bilaterally Cardio Jugular venous distension: no JVD Palpation: normal PMI Rate: regular rate Rhythm: regular rhythm Heart sounds: S1 normal heart sound present, S2 normal heart sound present, no click, no gallops, no murmurs and no rubs GI Auscultation: normal bowel sounds Neuro General: patient oriented x3 and no focal motor deficits Extrem General: Yes no clubbing, cyanosis or edema Psych Appearance: grossly normal Office Procedures Cardiac Device Check Cardiac Device Check Details: Dual-chamber Medtronic pacemaker in place. Programmed in DDD at 60 beats per minute. Ventricular pacing 100% of the time. Atrial ventricular pacing thresholds excellent and reprogrammed to enhance battery life. Atrial sensing was excellent. Pacing lead impedance is stable. Battery life is at about 8 years [id number] Cardiac Device Check, pacemaker dual lead Procedure code (CPT) selection complete Assessment & Plan Assessment & Plan (1) Nonsustained ventricular tachycardia: Code(s): I47.29 - Other ventricular tachycardia Category: Medical Plan: Nonsustained ventricular tachycardia noted again. Patient has no symptoms related to it. Could be incidental finding. Echocardiogram showed preserved LV ejection fraction less than 6 months ago. Would like to rule out significant coronary disease in his suggested him to undergo coronary CTA to rule out any balanced myocardial ischemia. Continue metoprolol therapy. Avoidance of stimulants was discussed. (2) Paroxysmal atrial fibrillation: Code(s): I48.0 - Paroxysmal atrial fibrillation Category: Medical Plan: Paroxysmal atrial fibrillation noted with total burden of about 5 minutes in the last 6 months. Continue metoprolol therapy. Avoidance of stimulants was discussed. Continue monitor by remote telemetry and in the clinic. No indication for anticoagulation as per the recent studies (3) Pacemaker: Comment: 11/2019 Code(s): Z95.0 - Presence of cardiac pacemaker Category: Medical Plan: Cardiac pacemaker in-situ for complete heart block. Patient pacer dependent in the ventricle. Doing well. Pacemaker is working well. Will follow remotely every 3 months follow up in the clinic in 6 months time. Follow up in the clinic in 6 months time, sooner p.r.n.. Thank you for allowing me to partake in his care Orders: Orders CT Cardiac Coronary Angio 1 Week I47.29 - Other ventricular tachycardia Basic Metabolic Panel Today I47.29 - Other ventricular tachycardia Coding Level of Care Code Est Pt Level 4 (36613) Complex EM visit Add On G2211 Diagnoses Nonsustained ventricular tachycardia I47.29 Paroxysmal atrial fibrillation I48.0 Pacemaker Z95.0 CPT Codes Cardiac Device Check - Cardiac Device 2: [id number] Cardiac Device Check, pacemaker dual lead ([id number])
== END 2024-06-25 09:03 | disposition home or self-care (01) ==
LOC: HO.HCS 08:20
PROVIDERS: PCP Family Medicine; Visit Provider Internal Medicine Cardiovascular Disease
DX: I47.29 Other ventricular tachycardia (principal); I48.0 Paroxysmal atrial fibrillation; Z95.0 Presence of cardiac pacemaker
CPT/HCPCS: 93280; 99214; G2211

== ENCOUNTER → 2024-06-25 08:20 | Outpatient (BNVA) | payer MEDICARE, SELFPAY | PROVIDERS: PCP Family Medicine; Visit Provider Internal Medicine Cardiovascular Disease | DX: I47.29 Other ventricular tachycardia (principal); I48.0 Paroxysmal atrial fibrillation; Z45.018 Encounter for adjustment and management of other part of cardiac pacemaker; Z87.891 Personal history of nicotine dependence | CPT/HCPCS: 93280; 99212 ==

== ENCOUNTER → 2024-07-16 23:59 | Outpatient (BNV) | payer MEDICARE, SELFPAY ==
--- NOTE | 2024-07-18 13:30 | MHC.OFFVIS ---
Intake Visit Reasons: Remote device check- Medtronic Allergies turmeric Allergy (Intermediate, Verified 05/06/24 11:38) hives PFSH Medical History BPH (benign prostatic hyperplasia) Mood disorder Hyperlipemia Osteoarthritis Osteoarthritis of right hip Pacemaker Complete heart block Surgical History H/O colonoscopy Hx of hernia repair History of bunionectomy History of permanent cardiac pacemaker placement (~11/2019) Family History Father Emphysema lung Mother No problems noted. 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 Patient ventricularly pacer dependent. Pacemaker function is adequate [id number] Cardiac Device Interrogation, pacemaker Procedure code (CPT) selection complete Assessment & Plan Assessment & Plan (1) Pacemaker: Comment: 11/2019 Code(s): Z95.0 - Presence of cardiac pacemaker Category: Medical Plan: See above Coding Level of Care Code Procedure Only Diagnoses Pacemaker Z95.0 CPT Codes Cardiac Device Check - Cardiac Device 12: [id number] Cardiac Device Interrogation, pacemaker ([id number])
== END ==
PROVIDERS: PCP Family Medicine; Visit Provider Internal Medicine Cardiovascular Disease
DX: Z45.018 Encounter for adjustment and management of other part of cardiac pacemaker (principal)
CPT/HCPCS: 93294

== ENCOUNTER 2024-08-20 09:47 | Outpatient (REF) | payer MEDICARE, SELFPAY ==
[2024-08-20 10:43] LABS: Anion Gap 12 (12-20); Blood Urea Nitrogen 15 mg/dL (9-16); Calcium 9.6 mg/dL (8.4-10.2); Carbon Dioxide 31 mmol/L (22-29); Chloride 105 mmol/L (96-108); Estimated Glomerular Filt Rate > 60; Glucose Random 117 mg/dL (60-115); Potassium 4.6 mmol/L (3.3-5.1); Sodium 143 mmol/L (135-145)
== END 2024-08-20 09:48 | disposition home or self-care (01) ==
LOC: HO.LAB 09:47
PROVIDERS: PCP Family Medicine; Referring Provider Nurse Practitioner Family; Visit Provider Internal Medicine Cardiovascular Disease
DX: I47.29 Other ventricular tachycardia (principal)
CPT/HCPCS: 36415; 80048

== ENCOUNTER → 2024-10-17 23:59 | Outpatient (BNV) | payer MEDICARE, SELFPAY ==
--- NOTE | 2024-10-21 13:57 | A.OFFVIS_ITS ---
Intake Visit Reasons: Remote device check- Medtronic Allergies turmeric Allergy (Intermediate, Verified 05/06/24 11:38) hives PFSH Medical History BPH (benign prostatic hyperplasia) Mood disorder Hyperlipemia Osteoarthritis Osteoarthritis of right hip Pacemaker Complete heart block Surgical History H/O colonoscopy Hx of hernia repair History of bunionectomy History of permanent cardiac pacemaker placement (~11/2019) Family History Father Emphysema lung Mother No problems noted. 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 Pacemaker function is adequate. Ventricularly pacer dependent [id number] Cardiac Device Interrogation, pacemaker Procedure code (CPT) selection complete Assessment & Plan Assessment & Plan (1) Pacemaker: Comment: 11/2019 Code(s): Z95.0 - Presence of cardiac pacemaker Category: Medical Plan: See above Coding Level of Care Code Procedure Only Diagnoses Pacemaker Z95.0 CPT Codes Cardiac Device Check - Cardiac Device 12: [id number] Cardiac Device Interrogation, pacemaker ([id number])
== END ==
PROVIDERS: PCP Family Medicine; Visit Provider Internal Medicine Cardiovascular Disease
DX: Z45.018 Encounter for adjustment and management of other part of cardiac pacemaker (principal)
CPT/HCPCS: 93294

== ENCOUNTER 2024-12-18 14:53 | Outpatient (AMB) | payer MEDICARE, SELFPAY ==
--- NOTE | 2024-12-18 15:14 | MHC.OFFVIS ---
Vital Signs 12/18/24 15:16 Height 5 ft 5 in Weight 178 lb 9.191 oz BMI 29.7 BP 120/72 Blood Pressure Location Lt brachial Position Sitting Intake Visit Reasons: r/s 12/22/24 6 mos followup cta Intake Note: 6 month follow-up ekg and Medtronic check feeling good Allergies turmeric Allergy (Intermediate, Verified 05/06/24 11:38) hives Medication List - Last Reconciled 12/18/24 by Red Barron MD acetaminophen 650 mg (2 x 325 mg) PO Q6H PRN 30 days atorvastatin 10 mg PO BEDTIME cetirizine 5 mg PO DAILY PRN cholecalciferol (vitamin D3) 25 mcg PO DAILY coenzyme Q10 (Ultra CoQ10) 75 mg PO DAILY flaxseed oil 1,000 mg PO DAILY fluoxetine 10 mg PO DAILY gabapentin 400 mg PO BID metoprolol succinate ER 50 mg PO DAILY multivitamin 1 tab PO DAILY omega-3 fatty acids 1,000 mg PO DAILY saw palmetto 160 mg PO BID HPI Comments Details: Campbell comes for follow-up for his pacemaker check and after coronary CTA, accompanied by his . He has no cardiac symptoms. He said he exercises routinely and has no symptoms exertional chest pain or shortness of breath. Denies any prolonged palpitation irregular heartbeat. No lightheadedness, syncope. No heart failure symptoms. Takes all his medications. He has coronary CTA showed nonobstructive disease. [facility] Medical History BPH (benign prostatic hyperplasia) Mood disorder Hyperlipemia Osteoarthritis Osteoarthritis of right hip Pacemaker Complete heart block Surgical History H/O colonoscopy Hx of hernia repair History of bunionectomy History of permanent cardiac pacemaker placement (~11/2019) Family History Father Emphysema lung Mother No problems noted. 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 Review of Systems Const Denies chills, Denies fatigue, Denies fever(s), Denies frequent falls, Denies weakness, Denies weight gain and Denies weight loss ENT Denies dizziness Card Denies chest pain, Denies leg edema, Denies lightheadedness, Denies palpitations, Denies dyspnea, Denies dyspnea on exertion, Denies orthopnea and Denies other (loss of consciousness) Resp Denies cough, Denies dyspnea and Denies dyspnea on exertion GI Denies hematochezia and Denies change in stool character Musc Denies abnormal gait, Denies muscle weakness, Denies numbness, Denies radiating pain into limb and Denies tingling Neuro Denies abnormal gait, Denies dizziness, Denies frequent falls, Denies numbness, Denies tingling and Denies weakness Endo Denies fatigue and Denies palpitations Physical Exam Vital Signs: Last Vital Signs BP 120/72 12/18/24 15:16 BMI result Body Mass Index 29.7 Const General: cooperative, comfortable, no acute distress, alert, awake and well groomed Nutritional Appearance: average body habitus Orientation/consciousness: patient oriented x3 Limitations: no limitations Neck Neck: Yes trachea midline, Yes supple and Yes no JVD Resp Effort & Inspection: normal respiratory effort Auscultation: clear to auscultation bilaterally Cardio Jugular venous distension: no JVD Palpation: normal PMI Rate: regular rate Rhythm: regular rhythm Heart sounds: S1 normal heart sound present, S2 normal heart sound present, no click, no gallops, no murmurs and no rubs GI Auscultation: normal bowel sounds Neuro General: patient oriented x3 and no focal motor deficits Extrem General: Yes no clubbing, cyanosis or edema Psych Appearance: grossly normal Office Procedures Cardiac Device Check Cardiac Device Check Details: Medtronic dual-chamber pacemaker in place. Programmed in DDD at 60 beats per minute. Ventricularly pacer dependent. Atrial sensing was adequate. Ventricular sensing could not be checked. Noted episodes of atrial fibrillation with total burden of less than 5 minutes. No ventricular tachycardia noted. Atrial and ventricular pacing thresholds adequate. Pacing lead impedance is stable. Battery life is at 6 and half years [id number] Cardiac Device Check, pacemaker dual lead Procedure code (CPT) selection complete EKG Details: EKG shows AV dual paced rhythm [id number], Complete Assessment & Plan Assessment & Plan (1) Pacemaker: Comment: 11/2019 Code(s): Z95.0 - Presence of cardiac pacemaker Category: Medical Plan: Cardiac pacemaker in-situ for complete heart block. Pacemaker is working well. Reprogrammed for adequate functioning. Will follow up remotely every 3 months follow up in the clinic in 6 months. (2) Nonsustained ventricular tachycardia: Code(s): I47.29 - Other ventricular tachycardia Category: Medical Plan: Nonsustained ventricular tachycardia without any obvious cardiac infiltrative disorder significant coronary artery disease. For now management would be with medications that would continue metoprolol therapy for now. Avoidance of stimulants was discussed. Will continue monitor pacer telemetry. (3) Paroxysmal atrial fibrillation: Code(s): I48.0 - Paroxysmal atrial fibrillation Category: Medical Plan: Paroxysmal atrial fibrillation with very brief episode with total burden less than 5 minutes. No indication for anticoagulation therapy at this point time. Continue metoprolol therapy. Avoidance of stimulants was discussed. Will continue monitor by pacer telemetry. (4) CAD (coronary artery disease): Comment: Nonobstructive by coronary CTA Code(s): I25.10 - Atherosclerotic heart disease of [place] coronary artery without angina pectoris Category: Medical Plan: CAD which is nonobstructive. Continue statin therapy. Target goal LDL less than 70 mg/dL. Continue aggressive blood pressure control. Can consider low-dose aspirin therapy although he has not had any primary events. Will follow up in the clinic in 6 months time, sooner PRN. Thank you for allowing me to partake in his care Coding Level of Care Code Est Pt Level 4 (44077) Complex EM visit Add On G2211 Diagnoses Pacemaker Z95.0 Nonsustained ventricular tachycardia I47.29 Paroxysmal atrial fibrillation I48.0 CAD (coronary artery disease) I25.10 CPT Codes Cardiac Device Check - Cardiac Device 2: [id number] Cardiac Device Check, pacemaker dual lead ([id number]) EKG - CPT: 17032-Nrndpkqgugahjckqd, Complete ([id number])
[2024-12-18 15:16] VITALS: BP 120/72; BMI 29.7
--- OUTSIDE RECORDS SUMMARY | 2024-12-18 18:22 | XMS_ITS | Patient Health Record ---
Author Organization [facility] Address [address] [place] [address] Care Team Providers Care Inclinometer Tester Name Role Phone Jaime Pratt M.D. Primary Care Provider Jayne Yves Peterson Unavailable [phone] Allergies Allergen (clinical drug ingredient) Drug/Non Drug Allergy documented on EMR Reaction Allergy Type Onset Date Status Thimerosal Unknown Drug Allergy Active Reason For Referral No Information Medications Medication SIG (Take, Route, Frequency, Duration) Notes Start Date End Date Status Multi Vitamin/Minerals Active CoQ10 Active Fish Oil Active Flax Seed Oil Active Vitamin D Active Ibuprofen Active Colyte with Flavor Packs 227.1 GM As directed Orally As directed for 1 day(s) 12/23/2013 Active Problems Problem Type SNOMED Code ICD Code Onset Dates Problem Status W/U Status Risk Notes Problem Colon cancer screening (694689768) Colon cancer screening (V76.51) Active confirmed Problem History of polyp of colon (situation) (139795125) History of colon polyps (V12.72) Active confirmed Problem NSAID long-term use (V58.64) Active confirmed Plan Of Treatment Future Test Test Name Order Date COLONOSCOPY 12/23/2013 Insurance Providers Payer Name Payer Address Payer Phone Subscriber Number Group Number Insured Name Patient Relationship to Insured Coverage Start Date Coverage End Date MEDICARE OF [place] [address] [place] [address] [id number] SUE CASTRO Self - patient is the insured MEDEX ATTN CLAIMS [address] [place] [phone] [id number] SUE CASTRO Self - patient is the insured Medical (General) History Medical History History ICD Code He had a neg colonoscopy in 12/2007 with me, except for some diverticulosis and internal hemorrhoids--he had a colon polyp removed in [place] in approx 2000 Denies [place],DM,CVA,Lung disease,renal dise ase Surgical History Surgery Date(Month/Year) hernia repair bunionectomy lasik eye surgery Precancerous skin lesion on his left wri st
== END 2024-12-18 15:42 | disposition home or self-care (01) ==
LOC: HO.HCS 14:54
PROVIDERS: PCP Family Medicine; Visit Provider Internal Medicine Cardiovascular Disease
DX: I47.29 Other ventricular tachycardia (principal); Z95.0 Presence of cardiac pacemaker; I48.0 Paroxysmal atrial fibrillation; I25.10 Atherosclerotic heart disease of native coronary artery without angina pectoris
CPT/HCPCS: 93010; 93280; 99214; G2211

== ENCOUNTER → 2024-12-18 14:53 | Outpatient (BNVA) | payer MEDICARE, SELFPAY | PROVIDERS: PCP Family Medicine; Visit Provider Internal Medicine Cardiovascular Disease | DX: Z45.018 Encounter for adjustment and management of other part of cardiac pacemaker (principal); I47.29 Other ventricular tachycardia; I48.0 Paroxysmal atrial fibrillation; I25.10 Atherosclerotic heart disease of native coronary artery without angina pectoris; Z87.891 Personal history of nicotine dependence | CPT/HCPCS: 93005; 93280; 99212 ==

== ENCOUNTER 2024-12-29 09:54 | Outpatient (AMB) | payer MEDICARE, SELFPAY ==
--- NOTE | 2024-12-29 10:03 | MHC.OFFWIV ---
Intake Vital Signs 12/29/24 10:04 Height 5 ft 5 in BMI Reason not done Patient refused/unable BP 120/74 Blood Pressure Location Lt brachial Position Sitting Pulse 63 Pulse Source Pulse Oximeter Temp 98.1 F Temp Source Oral Pulse Oximetry (%) 97 Oxygen Delivery Method Room Air Intake Visit Reasons: EP Diarrhea for 7 days Patient Tobacco Use Status: Former Tobacco user Allergies turmeric Allergy (Intermediate, Verified 12/29/24 10:05) hives Do you need a note to return to daycare/school/sports/work: No HPI HPI Comments History of Present Illness Details 79 y/o Male patient who presents to the walk in clinic with c/o Diarrhea for 7 days. Reports that Originally his Stools were more liquid and now has Formed stools but continues to have more frequent stools. Denies Foul Smell and stools are normal in color. Denies Abdominal Cramping. Denies any changes to Diet or medications. He has been using Pepto-bismal with no relief. Reports good appetite and he has been drinking plenty of fluids. [facility] Medical History (Updated 12/29/24 @ 10:53 by Yenni Jones NP) Diarrhea BPH (benign prostatic hyperplasia) Mood disorder Hyperlipemia Osteoarthritis Osteoarthritis of right hip Pacemaker Complete heart block Surgical History H/O colonoscopy Hx of hernia repair History of bunionectomy History of permanent cardiac pacemaker placement (~11/2019) Family History Father Emphysema lung Mother No problems noted. 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 Review of Systems Const All systems reviewed & are unremarkable except as noted in HPI and below Physical Exam Vital Signs: Last Vital Signs Temp 98.1 F 12/29/24 10:04 Pulse 63 12/29/24 10:04 BP 120/74 12/29/24 10:04 Pulse Ox 97 12/29/24 10:04 Oxygen Delivery Method Room Air 12/29/24 10:04 Const General: no acute distress Nutritional Appearance: overweight Orientation/consciousness: patient oriented x3 Resp Effort & Inspection: normal respiratory effort Auscultation: clear to auscultation bilaterally Cardio Heart sounds: S1 normal heart sound present and S2 normal heart sound present GI Inspection: Yes obesity Palpation (GI): Soft to palpation, not firm, Tenderness to palpation present (GI), no guarding, not rigid and No hepatosplenomegaly present Auscultation: normal bowel sounds Rectal Exam - Male: Yes deferred Neuro General: patient oriented x3, gait normal and moves all extremities Psych Speech and movement: Normal speech and movement present Assessment & Plan Assessment & Plan (1) Diarrhea: Code(s): R19.7 - Diarrhea, unspecified Qualifiers: Diarrhea type: unspecified type Qualified Code(s): R19.7 - Diarrhea, unspecified Plan: Ordered Imodium and Reglan Advised to drink plenty of fluids; Gatorade or Pedilyte. BLAND diet; Avoid oily spicy foods. Medications: New loperamide (Imodium A-D) Administer after each loose stool until symptoms controlled; do not exceed 8 mg per 24 hours. 2 mg PO Q4H PRN 30 caps 0RF loose stool R19.7 - Diarrhea, unspecified metoclopramide HCl (Reglan) 5 mg PO Q6H 20 tabs 0RF R19.7 - Diarrhea, unspecified Coding Level of Care Code Est Pt Level 4 (91372) Diagnoses Diarrhea, unspecified type R19.7 Diarrhea type: unspecified type Time Spent (min) 20
[2024-12-29 10:04] VITALS: BP 120/74; PULSE 63; TEMP 36.7; O2SAT 97
--- OUTSIDE RECORDS SUMMARY | 2024-12-29 12:07 | XMS_ITS | Patient Health Record ---
Author Organization [facility] Address [address] [place] [address] Care Team Providers Care Atomic Fuel Assembler Name Role Phone Jaime Pratt M.D. Primary Care Provider Jayne Yves Peterson Unavailable [phone] Allergies Allergen (clinical drug ingredient) Drug/Non Drug [...] Status Risk Notes Problem Colon cancer screening (197694153) Colon cancer screening (V76.51) Active confirmed Problem History of polyp of colon (situation) (043397345) History of colon polyps (V12.72) Active confirmed Problem NSAID long-term use (V58.64) Active confirmed Plan Of Treatment Future Test Test Name Order Date COLONOSCOPY 12/23/2013 Insurance Providers Payer Name Payer Address Payer Phone Subscriber Number Group Number Insured Name Patient Relationship to Insured Coverage Start Date Coverage End Date MEDICARE [place] [address] [place] [id number] SUE CASTRO Self - patient is the insured MEDEX ATTN CLAIMS [address] [place] [address] [id number] SUE CASTRO Self - patient is the insured Medical (General) History Medical History History ICD Code He had a neg colonoscopy in 12/2007 with me, except for some diverticulosis and internal hemorrhoids--he had a colon polyp removed in [place] in approx 2000 Denies [place],DM,CVA,Lung disease,renal dise ase Surgical History Surgery Date(Month/Year) hernia repair bunionectomy lasik eye surgery Precancerous skin lesion on his left wri st
== END 2024-12-29 10:57 | disposition home or self-care (01) ==
PROVIDERS: PCP Family Medicine; Visit Provider Nurse Practitioner Family
DX: R19.7 Diarrhea, unspecified (principal)

== ENCOUNTER → 2024-12-29 09:54 | Outpatient (BNVA) | payer MEDICARE, SELFPAY | PROVIDERS: PCP Family Medicine; Visit Provider Nurse Practitioner Family | DX: N40.0 Benign prostatic hyperplasia without lower urinary tract symptoms (principal); R19.7 Diarrhea, unspecified | CPT/HCPCS: 99212 ==

== ENCOUNTER → 2025-01-18 23:59 | Outpatient (BNV) | payer MEDICARE, SELFPAY ==
--- NOTE | 2025-01-21 10:54 | A.OFFVIS_ITS ---
Intake Visit Reasons: Remote device check- [employer] Allergies turmeric Allergy (Intermediate, Verified 12/29/24 10:05) hives [facility] Medical History (Updated 12/29/24 @ 10:53 by Yneni Jones NP) Diarrhea BPH (benign prostatic hyperplasia) Mood disorder Hyperlipemia Osteoarthritis Osteoarthritis of right hip Pacemaker Complete heart block Surgical History H/O colonoscopy Hx of hernia repair History of bunionectomy History of permanent cardiac pacemaker placement (~11/2019) Family History Father Emphysema lung Mother No problems noted. 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 Pacemaker function is adequate. Patient ventricularly pacer dependent [id number] Cardiac Device Interrogation, pacemaker Procedure code (CPT) selection complete Assessment & Plan Assessment & Plan (1) Pacemaker: Comment: 11/2019 Code(s): Z95.0 - Presence of cardiac pacemaker Category: Medical Plan: See above Coding Level of Care Code Procedure Only Diagnoses Pacemaker Z95.0 CPT Codes Cardiac Device Check - Cardiac Device 12: [id number] Cardiac Device Interrogation, pacemaker ([id number])
== END ==
PROVIDERS: PCP Family Medicine; Visit Provider Internal Medicine Cardiovascular Disease
DX: Z45.018 Encounter for adjustment and management of other part of cardiac pacemaker (principal)
CPT/HCPCS: 93294

== ENCOUNTER 2025-01-21 10:34 | Outpatient (AMB) | payer MEDICARE, SELFPAY ==
--- NOTE | 2025-01-21 11:10 | A.OFFVIS_ITS ---
Vital Signs 3 01/21/25 11:12 Height 5 ft 5 in Weight 179 lb BMI 29.8 BP 122/70 Pulse 60 Pulse Source Pulse Oximeter Pulse Oximetry (%) 96 Oxygen Delivery Method Room Air Intake Visit Reasons: CT Abnormal findings Grinder Gear Required: No Women'S Activities Adviser: Women'S Activities Adviser offered & declined Accompanied by: Spouse Allergies turmeric Allergy (Intermediate, Verified 01/21/25 11:16) hives Medication List - Last Reconciled 01/21/25 by Rosi Cohn, NAM acetaminophen 650 mg (2 x 325 mg) PO Q6H PRN 30 days atorvastatin 10 mg PO BEDTIME cetirizine 5 mg PO DAILY PRN cholecalciferol (vitamin D3) 25 mcg PO DAILY coenzyme Q10 (Ultra CoQ10) 75 mg PO DAILY flaxseed oil 1,000 mg PO DAILY fluoxetine 10 mg PO DAILY gabapentin 400 mg PO BID loperamide (Imodium A-D) 2 mg PO Q4H PRN metoclopramide HCl (Reglan) 5 mg PO Q6H metoprolol succinate ER 50 mg PO DAILY multivitamin 1 tab PO DAILY omega-3 fatty acids 1,000 mg PO DAILY saw palmetto 160 mg PO BID HPI HPI CT Abnormal findings: Details: Campbell is a pleasant 79 year old male, former 15+ pack year smoker, quit 1988 with underlying proximal atrial fibrillation, nonsustained ventricular tachycardia, complete heart block status post pacer, coronary artery disease . He was referred by cardiology after cardiac CT 08/2024 revealed hilar and mediastinal lymphadenopathy. Denies any prior abnormal imaging. The patient reports experiencing fatigue over the last couple of years and notes significant decline in activity after having pacer placed and hip replacement. He denies shortness of breath, cough, or chest tightness, but reports low energy levels, daytime fatigue and has noted some apneas. He denies prior history of BENNY. Denies prior h/o asthma/COPD. The patient has a history of smoking for 18 years, quitting in 1988, and his father had severe emphysema, otherwise denies any pertinent family history. Denies any occupational exposures. He denies h/o kidney issues. He is under the care of ophthamology and recently underwent cataract surgery 17 days ago, otherwise denies any other abnormalities. He denies any skin lesions other than h/o squamous and basal cell carcinoma, which were removed, under the care of dermatology regularly for skin evaluations. [facility] Medical History (Updated 01/21/25 @ 20:01 by Yaima Zhao NP) Diarrhea BPH (benign prostatic hyperplasia) Mood disorder Hyperlipemia Osteoarthritis Osteoarthritis of right hip Pacemaker Complete heart block Surgical History H/O colonoscopy Hx of hernia repair History of bunionectomy History of permanent cardiac pacemaker placement (~11/2019) Family History Father Emphysema lung Mother No problems noted. 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 Review of Systems Const Denies chills, Denies excessive sweating, Denies fever(s), Denies headache(s) and Denies night sweats Eyes Denies dry eyes, Denies irritation and Denies itchy eyes ENT Reports Normal hearing present, Denies headache(s), Denies nasal congestion, Denies nasal discharge, Denies post nasal drip and Denies sore throat Card Denies chest pain, Denies chest pain at rest, Denies chest pain with activity, Denies claudication, Denies leg edema, Denies dyspnea, Denies dyspnea on exertion, Denies orthopnea and Denies paroxysmal nocturnal dyspnea Resp Denies chest congestion, Denies cough, Denies excessive phlegm production, Denies pain on inspiration, Denies pain with cough, Denies dyspnea, Denies dyspnea on exertion, Denies stridor and Denies wheezing Musc Denies myalgias Neuro Reports Normal hearing present and Denies headache(s) Endo Denies excessive sweating Rashid/Lymph Denies lymphadenopathy Aller/Immun Denies itchy eyes, Denies seasonal rhinorrhea and Denies wheezing Physical Exam Vital Signs: Last Vital Signs Pulse 60 01/21/25 11:12 BP 122/70 01/21/25 11:12 Pulse Ox 96 01/21/25 11:12 Oxygen Delivery Method Room Air 01/21/25 11:12 BMI result Body Mass Index 29.8 Const General: cooperative, healthy appearing, comfortable, no acute distress, well developed and alert Orientation/consciousness: patient oriented x3 Limitations: no limitations HEENT Head: Yes normal to inspection, Yes normocephalic and Yes atraumatic Ears: hearing grossly normal bilaterally and external ears normal Eyes General: appearance normal, both eyes and all related structures Eyelids: Yes eyelids normal Sclerae: sclerae normal EOM: EOMs intact bilaterally Neck Neck: Yes normal visual inspection and Yes no lymphadenopathy Lymphatic: no lymphadenopathy noted Chest Chest palpation & inspection: normal inspection of the chest Resp Effort & Inspection: normal respiratory effort, able to speak in complete sentences, no audible wheezes, no cough, no stridor, not tachypneic, no tripod positioning and no use of accessory muscles Auscultation: clear to auscultation bilaterally Cardio Jugular venous distension: no JVD Rate: regular rate Rhythm: regular rhythm Skin Other: warm, dry General skin exam: no rashes or lesions noted Neuro General: patient oriented x3 Cranial nerves: Yes Normal hearing present Cognition (Neuro): normal cognition Gait exam (Neuro): Normal gait present Extrem General: Yes normal to inspection, Yes capillary refill normal, Yes no clubbing, cyanosis or edema and Yes no pedal edema Psych Appearance: grossly normal and well kempt Speech and movement: Normal speech and movement present and Clear speech present Affect: normal affect Attitude: cooperative Thought process: Normal thought process present Thought content: Normal thought content present Insight: Good insight present (Psych) Judgement: Good judgement present (Psych) Results Reviewed Results Reviewed: Assessment & Plan Assessment & Plan (1) Mediastinal lymphadenopathy: Code(s): R59.0 - Localized enlarged lymph nodes Category: Medical (2) Hilar lymphadenopathy: Code(s): R59.0 - Localized enlarged lymph nodes Category: Medical (3) Daytime somnolence: Code(s): R40.0 - Somnolence Category: Medical Plan The plan includes obtaining a repeat CT scan to assess for changes in the enlargement of lymphadenopathy, which may indicate sarcoidosis. If there are any changes, a biopsy may be considered to confirm the diagnosis. Blood work will be conducted to check for markers suggestive of sarcoidosis. The patient will undergo a sleep study to rule out sleep apnea as a cause of fatigue as well as noting possible apneas. If sleep apnea is confirmed, treatment options such as CPAP will be discussed. All questions were answered and patient is in agreement of plan. Will follow-up to review results or sooner reviewed. Orders: Orders 2 Angiotensin Converting Enzyme Today R59.0 - Localized enlarged lymph nodes RT home sleep study Today R40.0 - Somnolence CT chest w IV con Today R59.0 - Localized enlarged lymph nodes Coding Level of Care Code New Pt Level 4 (46003) Diagnoses Mediastinal lymphadenopathy R59.0 Hilar lymphadenopathy R59.0 Daytime somnolence R40.0
[2025-01-21 11:12] VITALS: BP 122/70; PULSE 60; O2SAT 96; BMI 29.8
--- OUTSIDE RECORDS SUMMARY | 2025-01-21 12:35 | XMS_ITS | Patient Health Record ---
Author Organization [facility] Address [address] [place] [address] Care Team Providers Care Computer Artist Name Role Phone Jaime Pratt M.D. Primary Care Provider Jayne Yves Peterson Unavailable [phone] Allergies Allergen (clinical drug ingredient) Drug/Non Drug [...] Packs 227.1 GM As directed Orally As directed; Duration: 1 day(s) 12/23/2013 Active Problems Problem Type SNOMED Code ICD Code Onset Dates Problem Status W/U Status Risk Notes Problem Colon cancer screening (023964141) Colon cancer screening (V76.51) Active confirmed Problem History of polyp of colon (situation) (648269008) History of colon polyps (V12.72) Active confirmed Problem NSAID long-term use (V58.64) Active confirmed Plan Of Treatment Future Test Test Name Order Date COLONOSCOPY 12/23/2013 Insurance Providers Payer Name Payer Address Payer Phone Subscriber Number Group Number Insured Name Patient Relationship to Insured Coverage Start Date Coverage End Date MEDICARE OF [place] [address] [place] [address] [phone] [id number] SUE CASTRO Self - patient is the insured MEDEX ATTN CLAIMS [address] [place] [address] [phone] [id number] SUE CASTRO Self - patient is the insured Medical (General) History Medical History History ICD Code He had a neg colonoscopy in 12/2007 with me, except for some diverticulosis and internal hemorrhoids--he had a colon polyp removed in [place] in approx 2000 Denies [place],DM,CVA,Lung disease,renal dise ase Surgical History Surgery Date(Month/Year) hernia repair bunionectomy lasik eye surgery Precancerous skin lesion on his left wri st
== END 2025-01-21 14:28 | disposition home or self-care (01) ==
PROVIDERS: PCP Family Medicine; Referring Provider Internal Medicine Cardiovascular Disease; Visit Provider Nurse Practitioner Family
DX: R59.0 Localized enlarged lymph nodes (principal); R40.0 Somnolence
CPT/HCPCS: 99204

== ENCOUNTER → 2025-01-21 10:34 | Outpatient (BNVA) | payer MEDICARE, SELFPAY | PROVIDERS: PCP Family Medicine; Referring Provider Internal Medicine Cardiovascular Disease; Visit Provider Nurse Practitioner Family | DX: R59.0 Localized enlarged lymph nodes (principal); R40.0 Somnolence; Z87.891 Personal history of nicotine dependence | CPT/HCPCS: 99202 ==

== ENCOUNTER 2025-02-13 10:01 | Outpatient (REF) | payer MEDICARE, SELFPAY ==
[2025-02-13 11:00] LABS: Blood Urea Nitrogen 18 mg/dL (9-16); Estimated Glomerular Filt Rate > 60
--- OUTSIDE RECORDS SUMMARY | 2025-02-13 11:48 | XMS_ITS | Patient Health Record ---
Author Organization [facility] Address [address] [place] [address] Care Team Providers Care Shot Polisher Name Role Phone Jaime Pratt M.D. Primary Care Provider Jayne Yves Peterson Unavailable [phone] Allergies Allergen (clinical drug ingredient) Drug/Non Drug [...] Status Risk Notes Problem Colon cancer screening (571327193) Colon cancer screening (V76.51) Active confirmed Problem History of polyp of colon (situation) (433887139) History of colon polyps (V12.72) Active confirmed Problem NSAID long-term use (V58.64) Active confirmed Plan Of Treatment Future Test Test Name Order Date COLONOSCOPY 12/23/2013 Insurance Providers Payer Name Payer Address Payer Phone Subscriber Number Group Number Insured Name Patient Relationship to Insured Coverage Start Date Coverage End Date [place]ARE OF [place] [address] [place] [address] [id number] SUE CASTRO Self - patient is the insured MEDEX ATTN CLAIMS [address] [place] [address] [id number] SUE CASTRO Self - patient is the insured Medical (General) History Medical History History ICD Code He had a neg colonoscopy in 12/2007 with me, except for some diverticulosis and internal hemorrhoids--he had a colon polyp removed in [place] in approx 2000 Denies [place],DM,CVA,Lung disease,renal dise ase Surgical History Surgery Date(Month/Year) hernia repair bunionectomy lasik eye surgery Precancerous skin lesion on his left wri st
== END 2025-02-13 10:02 | disposition home or self-care (01) ==
LOC: HO.LAB 10:01
PROVIDERS: PCP Family Medicine; Visit Provider Nurse Practitioner Family
DX: Z01.818 Encounter for other preprocedural examination (principal); R59.0 Localized enlarged lymph nodes
CPT/HCPCS: 36415; 82164; 82565; 84520

== ENCOUNTER 2025-03-17 07:24 | Outpatient (REF) | payer MEDICARE, SELFPAY ==
--- NOTE | ~2025-03-17 | CT_ITS ---
EXAMINATION: CT CHEST WITH CONTRAST CLINICAL INFORMATION: Localized enlarged lymph nodes. Cardiac CT 08/2024 showing enlarged hilar and mediastinal lymph nodes nodes. COMPARISON: CT pulmonary angiogram 11/26/2019. The cardiac CT from 08/2024 is not available for comparison. TECHNIQUE: Multidetector volumetric CT imaging of the chest was obtained after the administration of 50 mL of Omnipaque 350 intravenous contrast without immediate adverse reactions. Axial MIP volume rendering provided. Sagittal and coronal reformatted images were obtained. This CT examination was performed using dose optimization techniques as appropriate, variously including the following: *Automated exposure control *Adjustment of mA and/or kV according to patient size (this includes techniques or standardized protocols for targeted exams where dose is matched to indication/reason for exam; i.e. extremities or head) *Use of iterative reconstruction technique FINDINGS: LUNGS: The lungs are well inspired and grossly clear bilaterally. There are a few scattered calcified granulomata present. There are no suspicious nodules. Small airways are minimally thickened, in keeping with mild chronic bronchitis. Central airways are patent. There is no effusion or pneumothorax. Minor scarring is seen in the right middle lobe distribution. There are no interstitial abnormalities. MEDIASTINUM: There are partially calcified enlarged lymph nodes within the mediastinum. For example, a level 4B lymph node demonstrates a coarse central calcification and measures 1.6 cm in short axis (series 3, image 26). There are smaller AP window lymph nodes, measuring up to 1.1 cm in short axis. There is a partially calcified subcarinal lymph node present measuring 1.8 cm in short axis (series 3, image 35). These are all stable from 2019, and consistent with prior granulomatous exposure. No new abnormal lymphadenopathy is present. There are no mediastinal masses. The thyroid is atrophic without discrete nodule. Mild atheromatous disease of the aorta is present without aneurysm. There is a 2 vessel branching pattern. The pulmonary trunk is normal in size. The heart size is normal. There is no pericardial effusion. There is mild calcification of the mitral annulus present. A dual-lead pacer is in place with leads extending into the right ventricle and right atrium. PLEURA: There is no pleural effusion. No pleural mass or thickening. AXILLA/CHEST WALL: No abnormal lymphadenopathy is present. No masses. Left chest wall pacemaker generator in place. IMAGED UPPER ABDOMEN: There is diffuse fatty infiltration of the liver. There are 2 subcentimeter segment 2 hypoattenuating foci, most likely cysts but too small to characterize. The remainder of the liver shows no abnormalities. Normal gallbladder, spleen, and prominent splenule present. Remainder the imaged upper abdominal contents appear normal. OSSEOUS STRUCTURES: No suspicious lytic or blastic bone lesion is evident. There are mild to moderate degenerative changes throughout the spine. CT/CT chest w IV con IMPRESSION: 1. Enlarged mediastinal lymph nodes with coarse calcifications present, stable from 2019, and in keeping with prior granulomatous exposure/disease. Sarcoidosis is also a possibility although this would represent stable disease from 2020. No pulmonary manifestations of sarcoidosis. 2. The lungs are essentially clear with a few scattered calcified granuloma. There is mild thickening of the small airways in keeping with mild chronic bronchitis. 3. Diffuse fatty infiltration of the liver. 4. Left-sided Dual-lead pacemaker device in place. Electronically signed by: Pk Bassett MD 03/17/2025 08:53 [facility]
--- OUTSIDE RECORDS SUMMARY | 2025-03-17 07:27 | XMS_ITS | Patient Health Record ---
Author Organization [facility] Address [address] [place] [address] Care Team Providers Care Coal Tram Driver Name Role Phone Jaime Pratt M.D. Primary Care Provider Jayne Yves Peterson Unavailable [phone] Allergies Allergen (clinical drug ingredient) Drug/Non Drug Allergy documented on EMR Reaction Allergy Type Onset Date Status Thimerosal Unknown Drug Allergy Active Reason For Referral No Information Medications Medication SIG (Take, Route, Frequency, Duration) Notes Start Date End Date Status Multi Vitamin/Minerals Active CoQ10 Active Fish Oil Active Flax Seed Oil Active Vitamin D Active Ibuprofen Active Colyte with Flavor Packs 227.1 GM Solution Reconstituted As directed Orally As directed; Duration: 1 day(s) 12/23/2013 Active Social History Social History Additional Details Category Social Info Options Details Miscellaneous: Marital status: Occupation: retired Section Notes: Nonsmoker > 10 yrs ago; occa sional alcohol Problems Problem Type SNOMED Code ICD Code Onset Dates Problem Status W/U Status Risk Notes Problem Colon cancer screening (578091047) Colon cancer screening (V76.51) Active confirmed Problem History of polyp of colon (situation) (015956058) History of colon polyps (V12.72) Active confirmed Problem NSAID long-term use (V58.64) Active confirmed Plan Of Treatment Future Test Test Name Order Date COLONOSCOPY 12/23/2013 Insurance Providers Payer Name Payer Address Payer Phone Subscriber Number Group Number Insured Name Patient Relationship to Insured Coverage Start Date Coverage End Date MED[place]ARE OF [place] [address] [place] [id number] [phone] [id number] SUE CASTRO Self - patient is the insured MEDEX ATTN CLAIMS [address] [place] [address] [id number] SUE CASTRO Self - patient is the insured Medical (General) History Medical History History ICD Code He had a neg colonoscopy in 12/2007 with me, except for some diverticulosis and internal hemorrhoids--he had a colon polyp removed in [place] in approx 2000 Denies [place],DM,CVA,Lung disease,renal dise ase Surgical History Surgery Date(Month/Year) hernia repair bunionectomy lasik eye surgery Precancerous skin lesion on his left wri st
[2025-03-17] MEDS: iohexoL 350 MG/ML 100 ML INFUS..BTL 65 ML IV (08:32)
[2025-03-17 12:33] LABS: Creatinine POC 1.0 mg/dL (0.5-1.4); GFR POC > 60
== END 2025-03-17 07:25 | disposition home or self-care (01) ==
LOC: HO.CT 07:24
PROVIDERS: PCP Family Medicine; Visit Provider Nurse Practitioner Family
DX: R59.0 Localized enlarged lymph nodes (principal); R40.0 Somnolence; G47.33 Obstructive sleep apnea (adult) (pediatric)
CPT/HCPCS: 71260; 82565; 95806; Q9967

== ENCOUNTER → 2025-03-17 07:26 | Outpatient (BNV) | payer MEDICARE, SELFPAY | PROVIDERS: PCP Family Medicine; Visit Provider Radiology Diagnostic Radiology | DX: R59.0 Localized enlarged lymph nodes (principal); K76.0 Fatty (change of) liver, not elsewhere classified; Z95.0 Presence of cardiac pacemaker | CPT/HCPCS: 71260 ==

== ENCOUNTER → 2025-03-17 08:54 | Outpatient (BNV) | payer MEDICARE, SELFPAY | PROVIDERS: PCP Family Medicine; Visit Provider Internal Medicine | DX: G47.33 Obstructive sleep apnea (adult) (pediatric) (principal) | CPT/HCPCS: 95806 ==

== ENCOUNTER 2025-04-03 10:31 | Outpatient (AMB) | payer MEDICARE, SELFPAY ==
--- OUTSIDE RECORDS SUMMARY | 2025-04-03 10:34 | XMS_ITS | Patient Health Record ---
Author Organization [facility] Address [address] [place] [address] Care Team Providers Care Scorer Single Name Role Phone Jaime Pratt M.D. Primary Care Provider Jayne Yves Peterson Unavailable [phone] Allergies Allergen (clinical drug ingredient) Drug/Non Drug [...] Status Risk Notes Problem Colon cancer screening (608062484) Colon cancer screening (V76.51) Active confirmed Problem History of polyp of colon (situation) (849173920) History of colon polyps (V12.72) Active confirmed Problem NSAID long-term use (V58.64) Active confirmed Plan Of Treatment Future Test Test Name Order Date COLONOSCOPY 12/23/2013 Insurance Providers Payer Name Payer Address Payer Phone Subscriber Number Group Number Insured Name Patient Relationship to Insured Coverage Start Date Coverage End Date [place] [address] [place] [id number] SUE CASTRO Self - patient is the insured MEDEX ATTN CLAIMS [address] [place] [address] [id number] SUE CASTRO Self - patient is the insured Medical (General) History Medical History History ICD Code He had a neg colonoscopy in 12/2007 with me, except for some diverticulosis and internal hemorrhoids--he had a colon polyp removed in [place] in approx 2000 Denies [place],DM,CVA,Lung disease,renal dise ase Surgical History Surgery Date(Month/Year) hernia repair bunionectomy lasik eye surgery Precancerous skin lesion on his left wri st
[2025-04-03 10:38] VITALS: BP 118/64; PULSE 60; O2SAT 97; BMI 30.5
--- NOTE | 2025-04-03 10:38 | A.OFFVIS_ITS ---
Vital Signs 04/03/25 10:38 Height 5 ft 5 in Weight 183 lb 2 oz BMI 30.5 BP 118/64 Blood Pressure Location Rt brachial Position Sitting Pulse 60 Pulse Source Pulse Oximeter Pulse Oximetry (%) 97 Oxygen Delivery Method Room Air Intake Visit Reasons: CT Abnormal findings Allergies turmeric Allergy (Intermediate, Verified 04/03/25 10:41) hives HPI Comments Details: Campbell is a pleasant 79 year old male, former 15+ pack year smoker, quit 1988 with underlying proximal atrial fibrillation, nonsustained ventricular tachyc ardia, complete heart block status post pacer, coronary artery disease. He was initially referred by cardiology after cardiac CT 08/2024 revealed hilar and mediastinal lymphadenopathy. A recent chest CT scan showed findings that were essentially unchanged compared to a scan from 2020, demonstrating over five years of stability. The stability of the enlarged mediastinal lymph nodes makes a cancerous etiology very unlikely. Sarcoidosis was previously mentioned as a possibility, and while CHHAYA WNL, stable sarcoidosis cannot be ruled out. His recent sleep study showed moderate to severe obstructive sleep apnea, with an index of 22 events per hour and low oxygen for approximately 22 minutes. He reports symptoms of a dry throat and mouth in the morning, which causes a dry cough, suggesting he may be a mouth breather during sleep. He also reports an intermittent sensation of needing to take a deep breath, but denies wheezing, chest tightness, or shortness of breath. First name: Campbell Pulmonology History - Stable mediastinal lymphadenopathy noted on chest CT scan since at least 2019. - Chronic, intermittent dry cough, particularly in the morning. - Recent sleep study diagnosis of moderate to severe obstructive sleep apnea. Results - Imaging: - Chest CT: Stable mediastinal lymphadenopathy compared to a 2020 scan, with no change in over five years. - Tests and Diagnostics: - Sleep Study: Revealed moderate to severe obstructive sleep apnea with an apnea-hypopnea index (AHI) of 22 events per hour and nocturnal hypoxemia for approximately 23 minutes, lowest oxygen saturation 70%, average 94%. [facility] Medical History (Updated 04/03/25 @ 12:53 by Yaima Zhao NP) Diarrhea BPH (benign prostatic hyperplasia) Mood disorder Hyperlipemia Osteoarthritis Osteoarthritis of right hip Pacemaker Complete heart block Surgical History H/O colonoscopy Hx of hernia repair History of bunionectomy History of permanent cardiac pacemaker placement (~11/2019) Family History Father Emphysema lung Mother No problems noted. 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 Review of Systems Const Denies chills, Denies excessive sweating, Denies fever(s), Denies headache(s) and Denies night sweats Eyes Denies dry eyes, Denies irritation and Denies itchy eyes ENT Reports Normal hearing present, Denies headache(s), Denies nasal congestion, Denies nasal discharge, Denies post nasal drip and Denies sore throat Card Denies chest pain, Denies chest pain at rest, Denies chest pain with activity, Denies claudication, Denies leg edema, Denies dyspnea, Denies dyspnea on exertion, Denies orthopnea and Denies paroxysmal nocturnal dyspnea Resp Denies chest congestion, Denies excessive phlegm production, Denies pain on inspiration, Denies pain with cough, Denies dyspnea, Denies dyspnea on exertion, Denies stridor and Denies wheezing Musc Denies myalgias Neuro Reports Normal hearing present and Denies headache(s) Endo Denies excessive sweating Rashid/Lymph Denies lymphadenopathy Aller/Immun Denies itchy eyes, Denies seasonal rhinorrhea and Denies wheezing Physical Exam Vital Signs: Last Vital Signs Pulse 60 04/03/25 10:38 BP 118/64 04/03/25 10:38 Pulse Ox 97 04/03/25 10:38 Oxygen Delivery Method Room Air 04/03/25 10:38 BMI result Body Mass Index 30.5 Const General: cooperative, healthy appearing, comfortable, no acute distress, well developed and alert Orientation/consciousness: patient oriented x3 Limitations: no limitations HEENT Head: Yes normal to inspection, Yes normocephalic and Yes atraumatic Ears: hearing grossly normal bilaterally and external ears normal Eyes General: appearance normal, both eyes and all related structures Eyelids: Yes eyelids normal Sclerae: sclerae normal EOM: EOMs intact bilaterally Neck Neck: Yes normal visual inspection and Yes no lymphadenopathy Lymphatic: no lymphadenopathy noted Chest Chest palpation & inspection: normal inspection of the chest Resp Effort & Inspection: normal respiratory effort, able to speak in complete sentences, no audible wheezes, no cough, no stridor, not tachypneic, no tripod positioning and no use of accessory muscles Auscultation: clear to auscultation bilaterally Cardio Jugular venous distension: no JVD Rate: regular rate Rhythm: regular rhythm Skin Other: warm, dry General skin exam: no rashes or lesions noted Neuro General: patient oriented x3 Cranial nerves: Yes Normal hearing present Cognition (Neuro): normal cognition Gait exam (Neuro): Normal gait present Extrem General: Yes normal to inspection, Yes capillary refill normal, Yes no clubbing, cyanosis or edema and Yes no pedal edema Psych Appearance: grossly normal and well kempt Speech and movement: Normal speech and movement present and Clear speech present Affect: normal affect Attitude: cooperative Thought process: Normal thought process present Thought content: Normal thought content present Insight: Good insight present (Psych) Judgement: Good judgement present (Psych) Results Reviewed Results Reviewed: [address] [address] [address] Scan Report Signed Patient: Campbell Luna MR#: [id number] : 1945 Acct:[id number] Age/Sex: 80 / M ADM Date: 03/17/25 Loc: HO.CT Attending Dr: Yaima Zhao NP Ordering Physician: Yaima Zhao NP Date of Service: 03/17/25 Procedure(s): CT chest w IV con Accession Number(s): [id number] cc: Aditya Cruz MD; Yaima Zhao NP~ Report Number: [id number]: Total DLP = 181.00 mGy-cm Reason for Exam: R59.0 - Localized enlarged lymph nodes EXAMINATION: CT CHEST WITH CONTRAST CLINICAL INFORMATION: Localized enlarged lymph nodes. Cardiac CT 08/2024 showing enlarged hilar and mediastinal lymph nodes nodes. COMPARISON: CT pulmonary angiogram 11/26/2019. The cardiac CT from 08/2024 is not available for comparison. TECHNIQUE: Multidetector volumetric CT imaging of the chest was obtained after the administration of 50 mL of Omnipaque 350 intravenous contrast without immediate adverse reactions. Axial MIP volume rendering provided. Sagittal and coronal reformatted images were obtained. This CT examination was performed using dose optimization techniques as appropriate, variously including the following: *Automated exposure control *Adjustment of mA and/or kV according to patient size (this includes techniques or standardized protocols for targeted exams where dose is matched to indication/reason for exam; i.e. extremities or head) *Use of iterative reconstruction technique FINDINGS: LUNGS: The lungs are well inspired and grossly clear bilaterally. There are a few scattered calcified granulomata present. There are no suspicious nodules. Small airways are minimally thickened, in keeping with mild chronic bronchitis. Central airways are patent. There is no effusion or pneumothorax. Minor scarring is seen in the right middle lobe distribution. There are no interstitial abnormalities. MEDIASTINUM: There are partially calcified enlarged lymph nodes within the mediastinum. For example, a level 4B lymph node demonstrates a coarse central calcification and measures 1.6 cm in short axis (series 3, image 26). There are smaller AP window lymph nodes, measuring up to 1.1 cm in short axis. There is a partially calcified subcarinal lymph node present measuring 1.8 cm in short axis (series 3, image 35). These are all stable from 2020, and consistent with prior granulomatous exposure. No new abnormal lymphadenopathy is present. There are no mediastinal masses. The thyroid is atrophic without discrete nodule. Mild atheromatous disease of the aorta is present without aneurysm. There is a 2 vessel branching pattern. The pulmonary trunk is normal in size. The heart size is normal. There is no pericardial effusion. There is mild calcification of the mitral annulus present. A dual-lead pacer is in place with leads extending into the right ventricle and right atrium. PLEURA: There is no pleural effusion. No pleural mass or thickening. AXILLA/CHEST WALL: No abnormal lymphadenopathy is present. No masses. Left chest wall pacemaker generator in place. IMAGED UPPER ABDOMEN: There is diffuse fatty infiltration of the liver. There are 2 subcentimeter segment 2 hypoattenuating foci, most likely cysts but too small to characterize. The remainder of the liver shows no abnormalities. Normal gallbladder, spleen, and prominent splenule present. Remainder the imaged upper abdominal contents appear normal. OSSEOUS STRUCTURES: No suspicious lytic or blastic bone lesion is evident. There are mild to moderate degenerative changes throughout the spine. CT/CT chest w IV con IMPRESSION: 1. Enlarged mediastinal lymph nodes with coarse calcifications present, stable from 2020, and in keeping with prior granulomatous exposure/disease. Sarcoidosis is also a possibility although this would represent stable disease from 2020. No pulmonary manifestations of sarcoidosis. 2. The lungs are essentially clear with a few scattered calcified granuloma. There is mild thickening of the small airways in keeping with mild chronic bronchitis. 3. Diffuse fatty infiltration of the liver. 4. Left-sided Dual-lead pacemaker device in place. Assessment & Plan Assessment & Plan (1) Mediastinal lymphadenopathy: Code(s): R59.0 - Localized enlarged lymph nodes Category: Medical (2) Obstructive sleep apnea: Code(s): G47.33 - Obstructive sleep apnea (adult) (pediatric) Category: Medical (3) Nocturnal hypoxemia: Code(s): G47.34 - Idiopathic sleep related nonobstructive alveolar hypoventilation Category: Medical (4) Chronic cough: Code(s): R05.3 - Chronic cough Category: Medical Plan Reviewed the results of his recent chest CT scan, explaining that the mediastinal lymph nodes have been stable for over five years, which is very reassuring and makes malignancy highly unlikely but can not be excluded. Although CHHAYA WNL, stable sarcoidosis remains in the differential diagnosis. We will continue surveillance with a repeat chest CT scan in one year. We had a detailed discussion about his recent sleep study, which showed moderate to severe obstructive sleep apnea (BENNY) with an AHI of 22 and 22 minutes of low oxygen overnight. The patient agreed to proceed with a CPAP trial. An order for an AutoPAP with a pressure range of 6-16 cm H2O will be sent to [facility]. Instructed him on the importance of using the machine for at least 4 hours per night for insurance compliance, using distilled water in the humidifier, and regular cleaning. We will schedule a follow-up visit in three months to review the electronic compliance data from his machine, after will order an overnight oxygen test to confirm the resolution of his hypoxemia. The patient's dry cough is intermittent and most prominent in the morning, possibly related to xerostomia from mouth breathing secondary to his obstructive sleep apnea. We will monitor for resolution of the cough with initiation of CPAP therapy. If the cough persists, worsens, or becomes productive, a breathing test will be ordered to assess for other etiologies such as asthma, especially given that CT chest suggestive of mild chronic bronchitis. Provided return precautions, instructing him to call if the cough worsens or changes in character, at which point a breathing test would be considered. All questions were answered and patient is in agreement of plan. Will follow up in 3 months or sooner if needed. Patient Instructions - You have been diagnosed with moderate to severe obstructive sleep apnea - We are ordering a CPAP machine for you to use during a 90-day trial period. The company, [employer], will call your cell phone to arrange for you to pick it up. - Please try to use the CPAP machine for at least 4 hours every night. - You must use distilled water in the machine's humidifier. Change the water nightly. - We will have a follow-up appointment in 3 months to check on your progress. - We will plan for another CT scan of your chest in one year to monitor the lymph nodes. - If your cough gets worse, becomes more persistent, or if you start coughing up colored phlegm, please call our office. Patient was informed and verbally consented to the use of an ambient scribe for clinic note documentation during this visit. Orders: Orders CT chest w IV con 11 Months R59.0 - Localized enlarged lymph nodes Coding Level of Care Code Est Pt Level 4 (84121) Add On Problem Visit Only Diagnoses Mediastinal lymphadenopathy R59.0 Obstructive sleep apnea G47.33 Nocturnal hypoxemia G47.34 Chronic cough R05.3
== END 2025-04-03 11:19 | disposition home or self-care (01) ==
LOC: HO.HPSW 10:32
PROVIDERS: PCP Family Medicine; Visit Provider Nurse Practitioner Family
DX: R59.0 Localized enlarged lymph nodes (principal); G47.33 Obstructive sleep apnea (adult) (pediatric); G47.34 Idiopathic sleep related nonobstructive alveolar hypoventilation; R05.3 Chronic cough
CPT/HCPCS: 99214; G2211

== ENCOUNTER → 2025-04-03 10:31 | Outpatient (BNVA) | payer MEDICARE, SELFPAY | PROVIDERS: PCP Family Medicine; Visit Provider Nurse Practitioner Family | DX: R59.0 Localized enlarged lymph nodes (principal); R05.3 Chronic cough; G47.33 Obstructive sleep apnea (adult) (pediatric); Z99.89 Dependence on other enabling machines and devices; Z87.891 Personal history of nicotine dependence; Z95.0 Presence of cardiac pacemaker | CPT/HCPCS: 99212 ==